=== PATIENT | male | born 1945 | race Caucasian/White ===

== ENCOUNTER 2017-09-12 13:03 | Inpatient (IN) | payer MEDICARE, OTHER ==
--- NOTE | 2017-09-12 14:01 | RAD ---
INDICATION: Short of breath COMPARISON: June 12, 2014 TECHNIQUE: An AP portable view obtained at 1345 hours is submitted. FINDINGS: Bones/Soft Tissues: There are no acute bony findings. Cardiomediastinal: The cardiac silhouette is enlarged. The central pulmonary vessels are prominent.. Lungs: There is airspace disease in the left lung base. There is infiltrate and/or atelectasis. Pleura: There are no significant effusions. Other: None IMPRESSION: SUSPECT MILD INTERSTITIAL CONGESTION WITH ENLARGED CHRONIC SILHOUETTE AND PULMONARY INTERSTITIAL EDEMA. LEFT BASILAR INFILTRATE AND/OR ATELECTASIS. SUGGEST FOLLOW-UP.
[2017-09-12 14:27] LABS: ABS Basophils 0.1 10^3/ul (0-0.2); ABS Eosinophils 0 10^3/ul (0-0.6); ABS Lymphocytes 0.3 10^3/ul (1.0-4.8); ABS Monocytes 1.3 10^3/ul (0-0.8); ABS Neutrophils 8.1 10^3/ul (1.5-7.7); ABS Nucleated RBC 0.1 10^3/ul; Eosinophil % 0.1 % (0-6); Hematocrit 41 % (42-52); Hemoglobin 13.4 g/dl (14.0-18.0); Lymphocyte % 3.2 % (25-47); Mean Corpuscular HGB Conc 33 g/dl (31-36); Mean Corpuscular Hemoglobin 32 pg (27-31); Mean Corpuscular Volume 99 fL (80-94); Mean Platelet Volume 9.1 um3 (7.4-10.4); Platelet Count 107 10^3/ul (150-450); Red Blood Count 4.15 10^6/ul (4.00-5.40); Red Cell Distribution Width 18 % (10.5-15); White Blood Count 9.8 10^3/ul (3.5-10.8)
[2017-09-12] MEDS ORDERED: Albuterol 2.5 MG/3 ML NEB.SOL* (0.083%) INH PRN (16:18)
[2017-09-12] MEDS ORDERED: NS 0.9% 1000 ML* 1,000 ML IV SCH (16:30)
[2017-09-12] MEDS ORDERED: Acetaminophen TAB* 325 MG PO PRN (16:31)
[2017-09-12] MEDS ORDERED: Thiamine IV 100 MG, Folic Acid IV* 1 MG, Multiple Vitamin IV ADULT* 10 ML in D5NS 0.9% ... IV ONE (16:42)
[2017-09-12 16:51] LABS: INR 1.14 (0.77-1.02)
[2017-09-12] MEDS ORDERED: LORazepam TAB(*) 1 MG PO SCH (17:00)
[2017-09-12] MEDS: cefTRIAXone VIAL(*) 1,000 MG in NS 0.9% 50 ML* 50 ML IVPB SCH (17:41)
[2017-09-12] MEDS: Azithromycin IV(*) 500 MG in NS 0.9% 250 ML* 250 ML IVPB SCH (18:05)
[2017-09-12] MEDS: Albuterol/Ipratropium NEB.SOL* Albuterol 2.5 MG/Ipratropium 0.5 MG 3 ML INH SCH ×2 (18:07→20:54)
[2017-09-12] MEDS: metroNIDAZOLE IV 500 MG/100ML* 500 MG/100 ML BAG IVPB SCH (19:56)
[2017-09-12] MEDS: KCL 20 MEQ/100 ML IVPREMIX* 20 MEQ/100 ML BAG IV SCH ×2 (20:03→22:17)
[2017-09-12] MEDS: Mometasone/Formoter 200/5 MDI INH SCH (20:09)
[2017-09-12] MEDS: Aspirin 81 mg CHEW TAB* 81 MG TAB.CHEW PO SCH (20:09)
--- NOTE | 2017-09-12 22:00 | HP ---
CC: Dr. Pablo; Dr. Diaz* HISTORY AND PHYSICAL: DATE OF ADMISSION: 09/12/17 PRIMARY CARE PROVIDER: Dr. Pablo. ATTENDING PHYSICIAN WHILE IN THE HOSPITAL: Josue Berry MD* (report dictated by Destin Black NP) CONSULTING PLASMA PROCESSING TECHNICIAN: Dr. Diaz. CHIEF COMPLAINT: 1. "I don't feel well." 2. Hypoxia. HISTORY OF PRESENT ILLNESS: Mr. Basurto is a 72-year-old male patient. He has really been lost to follow up over the last 2 years. He was last seen in our facility 3 years ago in 2014. He presents today. He will say that he has a significant history of cirrhosis. He has had hepatic encephalopathy in the past. He has pulmonary hypertension, neuropathy. He has a history of ascites, atrial tachycardia, CAD, DOT, question if he is compliant or not, hypertension, again cirrhosis, CHF, GERD, depression, and anxiety. He really is not able to give good history as he is intermittently confused during my exam, but he keeps saying to me that he has not been feeling well and he has been coughing. He states he has been feeling short of breath. He is not really sure how long this has been going on for. He states he has had chills at night, but no known fevers and denies any abdominal pain. Denies any chest pain at this point. He denies having any recent vomiting or diarrhea. There was concern though because when he presented here, he was noted to be hypoxic. He appeared to be in acute renal failure. Also, he was noted to have elevated troponin. It is also noted that his x-ray was significant for a left-sided pleural effusion and possible atelectasis and pneumonia. Because of these findings, we were asked to evaluate for admission. PAST MEDICAL HISTORY: Significant for: 1. COPD. 2. Pulmonary hypertension. 3. Neuropathy. 4. Ascites. 5. Obesity. 6. Atrial tachycardia. 7. CAD. 8. DOT. 9. Hypertension. 10. Cirrhosis. 11. Anemia. 12. Thrombocytopenia. 13. Depression. 14. Anxiety. 15. Tobacco abuse. 16. History of CHF. His last documented EF was 35% to 40%. 17. History of GERD. 18. Basal cell carcinoma. 19. Hepatic encephalopathy. PAST SURGICAL HISTORY: 1. He has had a rotator cuff repair. 2. Cardiac catheterization with nonobstructive coronary artery disease. 3. He has had basal cell skin cancer resection. 4. His last heart catheterization was done 4 years ago. Left main coronary artery was within normal limits. The LAD demonstrated mild valvular irregularities without critical obstruction. Circ demonstrated moderate valve irregularities, but without significant critical disease. Right coronary again showed minimal valve irregularities were seen at that point. HOME MEDICATIONS: According to what we were able to obtain includes: 1. Gabapentin 800 mg p.o. 4 times a day. 2. Toprol-XL 25 mg p.o. b.i.d. 3. Aspirin 650 mg every 6 hours as needed. 4. Demadex 40 mg p.o. b.i.d. 5. Librium 1 capsule t.i.d. as needed. ALLERGIES TO MEDICATIONS: Include no known drug allergies. FAMILY HISTORY: His mother had a history of pneumonia. Father had OR. SOCIAL HISTORY: He is a pack a day smoker. He does drink. He states he last had alcohol in May. Denies recreational drug abuse. Surrogate decision maker is his friend, [employer]. REVIEW OF SYSTEMS: Again, I question the validity given the underlying altered mental status, but the patient states to his knowledge, he has not had any known fevers, he has felt hot. He denies having any chest pain. No ear discharge. He does admit to having a cough. Denies any rhinorrhea. No sore throat. No thyroid enlargement. He denies having any chest pain. There was no orthopnea. He denies having any nocturnal dyspnea. Denies any abdominal pain. He does admit to having ascites. He denies any nausea, vomiting. No dysuria, no frequency. No seizure, no loss of consciousness. No pruritus, no skin ulcerations. Review of 14 systems completed, all others negative. PHYSICAL EXAMINATION GENERAL: At this time, Mr. Basurto is a 72-year-old male patient. He is chronically ill appearing. He is sitting in the ED stretcher. He does not appear to be in any acute respiratory distress. At this point, he certainly does appear to be drowsy. VITAL SIGNS: Blood pressure 107/72, pulse 95, respirations were 24, his O2 saturations now are 98% on 8 L OxyMask, temperature was 100.7. HEENT: Head: Atraumatic. Eyes: EOMs are intact. Sclerae anicteric, not pale. Throat: Oral mucosa appears to be dry. No oropharyngeal erythema. NECK: Supple. LUNGS: Diminished in the left base. He had crackles in the left base. Equal diaphragmatic expansion. HEART: Sounds S1, S2. It is irregular at times. No murmurs, rubs, or gallops. ABDOMEN: He has ascites. It was otherwise soft and nontender. Bowel sounds are present. EXTREMITIES: Pulses 2+ throughout. He does have peripheral edema. It is 2+ bilaterally. NEUROLOGIC: He is awake. He is oriented to himself, but he is confused to time and place. His speech is clear. His tongue is midline. Boat Builder And Repairer were equal. He had no gross focal deficits. DIAGNOSTIC STUDIES/LAB DATA: WBC 9.8, RBC of 4.15, hemoglobin 13.4, hematocrit 41, platelet count of 107. Blood gas, pH is 733, pCO2 is 68, pO2 is 62, bicarb 30. Sodium is 139, potassium 3.3, chloride was 94, BUN 63, creatinine 2.32, last creatinine was 1.2, glucose 127. Lactic 1.3. Calcium 8.8. Total bili 1.4, AST 103, ALT 147, which is up. Troponin 0.16. BNP 1063. Albumin of 3.4. Toxicology was negative. Chest x-ray when I reviewed today certainly does have left-sided pleural effusion with mild interstitial edema, it appears there may be a left infiltrate versus atelectasis. EKG today shows a sinus tachycardia, rate of 96 with a left anterior fascicular block and no ST elevations, no T wave inversions noted, he does have PAC, heart rate is irregular. Review to the previous EKG, it is similar with the exception of the irregularity that is new now. Last echo, EF 30% to 35%. Old medical records were reviewed. ASSESSMENT AND PLAN: Mr. Basurto is a complex 72-year-old male patient coming in to the emergency department today with complaints of generally not feeling well and hypoxia. On evaluation today, it was noted that he appeared to have pneumonia with signs of sepsis. We were asked to evaluate for admission. He will be admitted under inpatient status for: 1. Pneumonia. I suspect this is why he is feeling malaise and that is why he was probably hypoxic. Chest x-ray is significant for effusion on one side. It may need to be tapped. He does have possible infiltrate there. I do note that when he is presenting today, he is delirious, which could be from pneumonia. He may have some hepatic encephalopathy causing this. He is also in acute renal failure. He has mild hepatic failure as well. In addition to this, he has elevated troponin. So, he does have signs of end organ damage and again, he is delirious. He had a low- grade fever here. Rule out on a procalcitonin. I will get a sputum culture, Legionella antigen. He got a liter of fluid here in the ED. Blood pressure is holding. I will get him on antibiotics, panculture him and I am going to have Dr. Diaz evaluate the patient as well. 2. Chronic obstructive pulmonary disease. Continue his meds as prescribed. I have ordered nebs and Dulera. He currently does not appear to be taking medications for this. Again, we will need to get an accurate list. I will put him on Dulera, pulmonary toileting, p.r.n. albuterol and DuoNebs. 3. Pulmonary type hypertension. We will reevaluate with echo. 4. Elevated troponins, probably demand ischemia secondary to possible pneumonia. I am going to put him on aspirin. He is not having any chest pain. EKG is not showing signs of ischemia. So, I do not think he needs heparin drip at this point. I will put him on aspirin. Continue the beta-virgilio and we will monitor. Get an echo and cycle the troponins. 5. Ascites. Again, at this point, I am covering him with Rocephin for possible spontaneous bacterial peritonitis. Dr. Diaz will be evaluating. We may need to consider doing a tap to send off for sampling. We can consider doing this in the ICU. 6. History of atrial tachycardia. His heart rate intermittently is going irregular. He may have new onset atrial fibrillation; but at this point, it could be in the setting of this acute illness. I am going to try for rate control with his beta-virgilio with hold parameters. Holding on anticoagulation at this point in case of procedures. 7. Coronary artery disease. Again, trop is elevated. We will get an echo to see if there have been any changes. He is not having any chest pain. I think the acute illness is driving that troponin. He will be placed on beta-virgilio and aspirin. 8. Obstructive sleep apnea. It is unclear if he is on CPAP or not. We will get notes from his primary. 9. Hypertension. Again, I am just going to get him back on the beta-virgilio with hold parameters. 10. Cirrhosis. At some point, we will need to get him back on spironolactone, perhaps rifaximin. I am going to get an ammonia level and we will treat this with lactulose if needed. 11. Anemia. His H and H is stable. 12. Elevated LFTs, probably secondary to this acute illness. We will monitor these. I will repeat them in the morning. He does have known cirrhosis. I am getting an INR. 13. Thrombocytopenia. Platelets are stable. 14. Depression, anxiety. Continue supportive care. 15. History of tobacco use. He declined nicotine. 16. History of congestive heart failure. I do note that the BNP is over 1000, but the patient does have acute renal failure, which certainly may elevate this number factitiously. Again, he does have a fever down here. My concern for the respiratory status is that he most likely has pneumonia and he is septic. I will monitor this and we will continue to follow. 17. Acute renal failure. He may have a component of acute tubular necrosis. My plan would be to get urine FENa. I will bladder scan him as well to make sure he is not retaining. If he is, we will certainly place a catheter and we will continue to follow. 18. Gastroesophageal reflux disease. Continue meds as prescribed. 19. DVT prophylaxis. Again, high risk. He has been placed on heparin subcu. 20. Code status. Full code. TIME SPENT: Time spent on the admission, which was critical care time, was 70 minutes, greater than half the time was spent [id number] with the patient obtaining my history and physical; other half time was spent going over the plan of care with the patient and implementing plan of care. I did discuss the plan of care with my attending, Dr. Berry. I also discussed the case with Dr. Diaz; she is in agreement. DESTIN BLACK, DEMETRIO [id number]/[facility] #: [id number] EDA
[2017-09-12] MEDS: LORazepam INJ* 2 MG/ML 1 ML VIAL IM SCH (22:09)
[2017-09-12] MEDS: Heparin VIAL(*) 5000 UNITS/ML VIAL (FIVE THOUSAND) SUBCUT SCH (22:11)
[2017-09-12] MEDS: Metoprolol Tartrate TAB* 25 MG PO SCH (22:11)
[2017-09-13 01:00] LABS: Urine Appearance Cloudy; Urine Blood 2+ (Negative); Urine Color Yellow; Urine Ketones Negative (Negative); Urine Protein Negative (Negative); Urine Red Blood Cell Trace(0-2/hpf) (Absent); Urine Specific Gravity 1.012 (1.010-1.030); Urine Urobilinogen Positive (Negative); Urine White Blood Cell 2+(11-20/hpf) (Absent)
[2017-09-13] MEDS ORDERED: NS 0.9% 250 ML* 250 ML IV ONE (01:09)
[2017-09-13] MEDS ORDERED: Metoprolol Tartrate IV* 1 MG/ML 5 ML VIAL IV PRN ×2 (01:10→13:00)
--- NOTE | 2017-09-13 01:13 | PN ---
Hospitalist Progress Note Date of Service: 09/13/17 Text-paged by RN regarding tachycardias in the 130s. Reviewed pt's chart and currently being treated for PNA and UTI. Although LA is normal, tachycardia maybe a symptom of early sepsis. Will bolus with 250cc NS x1 and ordered Metoprolol 2.5 mg IV x1 PRN after bolus.
--- NOTE | 2017-09-13 02:22 | CONS ---
CRITICAL CARE CONSULTATION REPORT: DATE OF CONSULT: 09/12/17 CONSULTATION REQUESTED BY: Destin Black NP REASON FOR CONSULTATION: Altered mental status, hypoxemic and hypercapnic respiratory failure. HISTORY OF PRESENT ILLNESS: The patient is a 72-year-old male with multiple comorbidities, not able to provide good history as he is currently disoriented. History obtained from ED records and available medical records and the admitting physician discussions. The patient has a history of coronary artery disease, paroxysmal atrial fibrillation, CHF, hypertension, COPD, cirrhosis with chronic ascites, anemia, thrombocytopenia, neuropathy, pulmonary hypertension, DOT, anxiety and depression, and GERD. He presented to emergency room today for evaluation of shortness of breath. The patient is not able to provide much history. The patient reports that his shortness of breath has been worsening recently. The patient also reports chronic cough. The patient reports that he has not seen his primary care physician for a few years. He has been on supplemental oxygen at home for COPD, which he has not been compliant with. The patient was seen by provider recently, ascitic fluid drainage was recommended; however, he did not want to undergo it. The patient was found to have O2 sats 88% on 4 liters nasal cannula, did not appear in any kind of distress, O2 sats improved to 90% on 6 liters. Breath sounds showed inspiratory crackles and diminished breath sounds. Further evaluation in the emergency room revealed evidence of acute-on chronic hypercapnic and hypoxemic respiratory failure. The patient did not have white count, however, had left shift. He has mild anemia. Potassium was low, which was repleted. Lactic acid was within normal limits. He also was noted to have acute renal failure with elevated BUN and creatinine. His troponin was mildly elevated at 0.16 on admission, was trending down to 0.14. His procalcitonin was within normal limits. His BNP was significantly elevated at 1063. UA was pending. He apparently has history of EtOH abuse, alcohol level was within normal limits. The patient was admitted to ICU for close monitoring given altered mental status. The patient was seen and examined at the bedside. The patient was not able to provide much history, appeared disoriented. He is able to protect his airway well. He is satting in the low 90s on 10 liters. He is not using accessory muscles of respiration. His abdomen appears to be protruding and distended and has spider nevi. He has been intermittently tachycardic into one- teens. His blood pressure systolic at the time of my evaluation has been at 110. The patient has received IV fluids in the emergency room. He was given potassium supplements. He was initiated on broad-spectrum antibiotics. He was also given neb treatments. PAST MEDICAL HISTORY: 1. Coronary artery disease. 2. Paroxysmal atrial fibrillation, not on anticoagulation. 3. CHF. 4. Hypertension. 5. COPD. 6. Cirrhosis with ascites. 7. Anemia. 8. Thrombocytopenia. 9. Neuropathy. 10. Pulmonary hypertension. 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 12. Depression and anxiety. 13. GERD. MEDICATIONS AT HOME: Included: 1. Chlordiazepoxide. 2. Torsemide. 3. Metoprolol. 4. Gabapentin. 5. Aspirin. ALLERGIES: No known drug allergies. FAMILY HISTORY: Unable to obtain. Noncontributory. SOCIAL HISTORY: Current smoker, 1 pack per day for greater than 55 years. Denies recreational drug abuse. History of ethyl alcohol abuse. REVIEW OF SYSTEMS: The patient is unable to provide good history, denies nausea , vomiting, diarrhea. Last bowel movement few days ago as per the patient. Denies abdominal pain. The patient denies urinary complaints. PHYSICAL EXAM: The patient is in bed, in no apparent distress. He is unkempt. Vital Signs: Temperature 98, pulse 108 beats per minute, respiratory rate 22 to 23, blood pressure 102/58. HEENT: Pupils equal and reactive to light, mucous membranes moist. Lungs: Diminished air entry bilaterally. Rhonchi present on auscultation. Cardiovascular: S1, S2 present, tachycardic, irregular. Abdomen: Distended, ascites present, nontender. Extremities: Normal range of motion. Skin: Spider nevi present on the abdomen. Neurologic: Disoriented, alert, awake. No obvious focal neuro deficits. DIAGNOSTIC STUDIES/LAB DATA: WBC count 9.8, hemoglobin 13.4, hematocrit 41, platelet count 107. INR 1.14, PTT 21.9. Blood gas analysis showed pH of 7.33, pCO2 68, pO2 62, bicarb 30, and O2 sat of 90%. Sodium 139, potassium 3.3, chloride 94, bicarb 34, BUN 63, creatinine 2.32. T-bili 1.40, AST 103, ALT 147. Ammonia elevated at 79. Troponins trending down from 0.16 to 0.14. BNP 1063. Procalcitonin within normal limits. Chest x-ray on admission was personally reviewed by me - no evidence of cardiomegaly, airspace opacity in the left base. EKG, sinus tachycardia with PVCs. No acute ST-T wave changes. IMPRESSION AND RECOMMENDATIONS: 72-year-old male with multiple comorbidities, current smoker with significant smoking history, admitted with shortness of breath, found to have significant ascites, hypotensive, with acute renal failure. 1. Hypotension, likely secondary to sepsis, source likely pneumonia, abdominal source also likely, will need to check urinalysis. 2. Hyperammonemia. 3. Altered mental status secondary to sepsis, metabolic encephalopathy. 4. Hypoxemic and acute-on chronic hypercapnic respiratory failure, unstable, currently on O2 supplementation. 5. Microcytic anemia. 6. Thrombocytopenia secondary to ascites. 7. Acute renal failure, dehydration versus hepatorenal syndrome. 8. Elevated troponins, likely secondary to renal failure and stress ischemia. 9. Ascites. 10. Tachycardia The patient will be monitored closely in the ICU setting. The patient is receiving IV fluids with improvement in blood pressure since admission. He is not needing pressors at this time. His lactic acid is within normal limits. His sepsis is suspected secondary to pneumonia and possibly SBP. He is on broad-spectrum antibiotics, also with anaerobic coverage. Acute renal failure, dehydration versus prerenal from hepatorenal syndrome. Use IV fluids as needed. No need for blood transfusion. Elevated LFTs from alcoholic cirrhosis. Started on lactulose given the hyperammonemia. The patient is stable and in no need of pressors or intubation at this time. Will need to monitor him closely in the ICU setting. The patient would like to be a full code. Thank you for allowing me to participate in the care of your patient. Will monitor the patient closely in the ICU. [id number]/[facility] #: [id number] EDA
[2017-09-13] MEDS ORDERED: NS 0.9% 500 ML* 500 ML IV ONE (03:41)
[2017-09-13] MEDS ORDERED: hydrALAZINE IV* 20 MG/ML VIAL IV SLOW PU PRN (03:42)
[2017-09-13] MEDS ORDERED: Diltiazem IV* 5 MG/ML 5 ML VIAL (for loading dose/IV Push) (25 MG) IV SLOW PU ONE (04:13)
[2017-09-13] MEDS: metroNIDAZOLE IV 500 MG/100ML* 500 MG/100 ML BAG IVPB SCH ×3 (04:16→20:10)
[2017-09-13] MEDS: LORazepam INJ* 2 MG/ML 1 ML VIAL IM SCH ×3 (04:35→21:26)
[2017-09-13] MEDS ORDERED: Diltiazem IV* 5 MG/ML 5 ML VIAL (for loading dose/IV Push) (25 MG) IV PUSH ONE (05:03)
[2017-09-13 05:06] LABS: Hematocrit 39 % (42-52); Hemoglobin 12.8 g/dl (14.0-18.0); Mean Corpuscular HGB Conc 32 g/dl (31-36); Mean Corpuscular Hemoglobin 32 pg (27-31); Mean Corpuscular Volume 100 fL (80-94); Red Blood Count 3.95 10^6/ul (4.00-5.40); Red Cell Distribution Width 19 % (10.5-15); White Blood Count 8.4 10^3/ul (3.5-10.8)
[2017-09-13 05:16] LABS: EGFR Non-African American 41.7 (>60)
[2017-09-13 05:22] LABS: ABS Basophils 0.1 10^3/ul (0-0.2); ABS Eosinophils 0 10^3/ul (0-0.6); ABS Lymphocytes 0.3 10^3/ul (1.0-4.8); ABS Neutrophils 6.9 10^3/ul (1.5-7.7); ABS Nucleated RBC 0 10^3/ul
[2017-09-13 05:26] LABS: ABS Basophils 0 10^3/ul (0-0.2); ABS Neutrophils 7.2 10^3/ul (1.5-7.7); Mean Platelet Volume 8.5 um3 (7.4-10.4); Monocytes % 5 % (0-7); Platelet Count 85 10^3/ul (150-450)
[2017-09-13] MEDS: Heparin VIAL(*) 5000 UNITS/ML VIAL (FIVE THOUSAND) SUBCUT SCH (05:40)
[2017-09-13] MEDS ORDERED: Diltiazem IV VIAL* 125 MG in NS 0.9% 100 ML* 100 ML IV SCH (06:00)
[2017-09-13] MEDS: KCL 20 MEQ/100 ML IVPREMIX* 20 MEQ/100 ML BAG IV SCH ×2 (08:44→13:17)
[2017-09-13] MEDS: methylPREDNISolone SOD 40 MG* 1 ML VIAL IVPB SCH ×2 (08:44→21:51)
[2017-09-13] MEDS ORDERED: Heparin 2 UNITS/ML IVPREMIX* 1 ML in NS 0.9% 50 ML* 1 ML IV SCH (09:00)
[2017-09-13] MEDS: Albuterol 2.5 MG/3 ML NEB.SOL* (0.083%) INH SCH ×8 (09:02→23:24)
[2017-09-13] MEDS: Mometasone/Formoter 200/5 MDI INH SCH ×2 (09:04→21:07)
[2017-09-13] MEDS ORDERED: Norepinephrine 16MCG/ML IVPRE* 4,000 MCG/250 ML BAG IV ONE (09:06)
--- NOTE | 2017-09-13 09:11 | ECHO ---
Patient: KRYSTLE DEY [facility] Rec#: [id number] : 1945 Date: 09/13/2017 Age: 72y Height: 170 cm / 66.9 in Weight: 90.7 kg / 199.9 lbs Sex: M BSA: 2.02 Room#: [facility] Admit Date#: 09/12/2017 Type: Inpatient Referring: Destin Black NP Reading: Shivani Galvez MD Manager Company: Kenia Guajardo RDCS CC: Tawanda Pablo MD Transthoracic Echocardiogram Indication: Dyspnea, AMS. BP: 92/65 HR: 137 Rhythm: Tachycardia Findings History: COPD, cirrhosis, CHF, DOT, smoker, HTN, obesity, ascites. Technical Comments: The study quality is fair. Completed at 0830. Left Ventricle: The left ventricular chamber size is normal. Mild concentric left ventricular hypertrophy is observed. There is global hypokinesis of the left ventricle with minor regional variation. Unable to estimate left ventricular ejection fraction. There is septal flattening of the interventricular septum consistent with right ventricular volume or pressure overload. The assessment of diastolic function is non-diagnostic. Left Atrium: The left atrium is moderately dilated. Right Ventricle: Moderator Band present. The right ventricle is moderately dilated. The right ventricular global systolic function is moderately reduced. Right Atrium: The right atrium is moderately dilated. Aortic Valve: The aortic valve is trileaflet. There is no evidence of aortic valve thickening. There is no evidence of aortic regurgitation. There is no evidence of aortic stenosis. Mitral Valve: The mitral valve leaflets are mildly thickened. There is trace to mild mitral regurgitation. There is no evidence of mitral stenosis. Tricuspid Valve: The tricuspid valve leaflets are normal. There is moderate tricuspid regurgitation. The right ventricular systolic pressure is estimated at 51 mmHg. There is evidence of moderate pulmonary hypertension. There is no tricuspid stenosis. Pulmonic Valve: The pulmonic valve appears normal. There is a trace pulmonic regurgitation. There is no pulmonic stenosis. Pericardium: There is no significant pericardial effusion. A pericardial fat pad is visualized. Aorta: There is moderate dilatation of the ascending aorta. There is mild dilatation of the aortic root. Pulmonary Artery: The main pulmonary artery is not well visualized. Venous: The inferior vena cava is dilated. There is less than 50% respiratory change in the inferior vena cava dimension. Summary: There are no significant changes when compared to the previous study done on 01/25/2014 Conclusions TDS and limited. Resting widecomplex tachycardia. The endocardium is not well visualized. Difficult to estimate overall LV EF but probably moderately reduced. The left ventricular chamber size is normal. Mild concentric left ventricular hypertrophy is observed. There is global hypokinesis of the left ventricle with minor regional variation. Unable to estimate left ventricular ejection fraction. There is septal flattening of the interventricular septum consistent with right ventricular volume or pressure overload. The left atrium is moderately dilated. The right ventricle is moderately dilated. The right atrium is moderately dilated. There is trace to mild mitral regurgitation. There is moderate tricuspid regurgitation. The right ventricular systolic pressure is estimated at 51 mmHg. There is evidence of moderate pulmonary hypertension. There is a trace pulmonic regurgitation. Measurements Name Value Normal Range RVIDd (AP) 2D 4.6 cm (0.9 - 2.6) RVDdMajor (2D) 5.4 cm (2.2 - 4.4) RAd ISD 4CH 6.9 cm (3.4 - 4.9) RA (A4C)W 5.6 cm (2.9 - 4.6) IVSd (2D) 1.2 cm (0.6 - 1) LVPWd (2D) 1.3 cm (0.6 - 1) LVIDd (2D) 5 cm (3.6 - 5.4) LVIDs (2D) 4.6 cm - LV FS (2D) 8 % (25 - 45) Aortic Annulus 2.1 cm (1.4 - 2.6) Ao root diameter (2D) 3.9 cm (2.1 - 3.5) Ascending Ao 4.1 cm (2.1 - 3.4) Aortic arch 3.2 cm (1.8 - 3.4) LA dimension (AP) 2D 5 cm (2.3 - 3.8) LAd ISD 4CH 7.3 cm (2.9 - 5.3) LA ISD 4CH W 5.7 cm (2.5 - 4.5) Name Value Normal Range LA ESV BP (A/L) index 46 ml/m2 - Name Value Normal Range MV E-wave Vmax 0.8 m/sec - MV deceleration time 134 msec - MV A-wave Vmax 1.2 m/sec - MV E:A ratio 0.7 ratio - LV septal e' Vmax 0.13 m/sec - LV lateral e' Vmax 0.12 m/sec - LV E:e' septal ratio 6.15 ratio - LV E:e' lateral ratio 6.67 ratio - Name Value Normal Range AV Vmax 1.5 m/sec - AV VTI 19.2 cm - AV peak gradient 9 mmHg - AV mean gradient 5 mmHg - LVOT Vmax 0.91 m/sec - LVOT VTI 10.4 cm - LVOT peak gradient 3 mmHg - LVOT mean gradient 2 mmHg - NICOLE Vmax 0.8 m/sec - Name Value Normal Range TR Vmax 3 m/sec - TR peak gradient 36 mmHg - RAP 15 mmHg - RVSP 51 mmHg - IVC diameter 2.7 cm - Name Value Normal Range PV Vmax 1.1 m/sec - PV peak gradient 5 mmHg -
[2017-09-13] MEDS ORDERED: Metoprolol Tartrate IV* 1 MG/ML 5 ML VIAL ONE (09:37)
[2017-09-13] MEDS: Aspirin 81 mg CHEW TAB* 81 MG TAB.CHEW PO SCH (10:18)
[2017-09-13] MEDS: Multivitamins/Minerals TAB PO SCH (10:18)
[2017-09-13] MEDS: Folic Acid TAB* 1 MG PO SCH (10:18)
[2017-09-13] MEDS: Metoprolol Tartrate TAB* 25 MG PO SCH ×2 (10:18→20:52)
[2017-09-13] MEDS: Thiamine TAB* 100 MG TAB PO SCH (10:19)
[2017-09-13] MEDS: Diltiazem IV VIAL* 125 MG in NS 0.9% 100 ML* 100 ML IV SCH (12:06)
[2017-09-13 13:43] LABS: ABS Basophils 0 10^3/ul (0-0.2); ABS Eosinophils 0 10^3/ul (0-0.6); ABS Lymphocytes 0.1 10^3/ul (1.0-4.8); ABS Monocytes 0.4 10^3/ul (0-0.8); ABS Neutrophils 6.5 10^3/ul (1.5-7.7); ABS Nucleated RBC 0 10^3/ul; Eosinophil % 0 % (0-6); Hematocrit 40 % (42-52); Hemoglobin 12.8 g/dl (14.0-18.0); Lymphocyte % 1.4 % (25-47); Mean Corpuscular HGB Conc 33 g/dl (31-36); Mean Corpuscular Hemoglobin 33 pg (27-31); Mean Corpuscular Volume 100 fL (80-94); Mean Platelet Volume 9.2 um3 (7.4-10.4); Nucleated Red Blood Cells % 0.4; Platelet Count 77 10^3/ul (150-450); Red Blood Count 3.95 10^6/ul (4.00-5.40); Red Cell Distribution Width 18 % (10.5-15)
[2017-09-13 13:58] LABS: EGFR Non-African American 48.5 (>60)
[2017-09-13] MEDS ORDERED: Heparin VIAL(*) 5000 UNITS/ML VIAL (FIVE THOUSAND) SUBCUT SCH (14:00)
--- NOTE | 2017-09-13 14:10 | PN ---
Progress Note - Progress Note Date of Service: 09/13/17 - [facility] progress note Note: Unsuccessful Rt radial A-line Date: 09/13/17 Time: 10:00 am Indication: Hemodynamic monitoring A time-out was completed verifying correct patient, procedure, site, positioning , and special equipment if applicable. Allens test was performed to ensure adequate perfusion. The patients right wrist was prepped and draped in sterile fashion. 1% Lidocaine was used to anesthetize the area. A 20G Arrow arterial line was introduced into the radial artery. The catheter couldnot be threaded over the guide wire and was removed. 2 other attempts were also unsuccessful No hematoma was noted. Pulses were palpated and were brisk. Unsuccessful Lt radial A-line Date: 09/13/17 Time: 12:[address] Boland Indication: Hemodynamic monitoring A time-out was completed verifying correct patient, procedure, site, positioning , and special equipment if applicable. Allens test was performed to ensure adequate perfusion. The patients right wrist was prepped and draped in sterile fashion. 1% Lidocaine was used to anesthetize the area. A 20G Arrow arterial line was attempted and was unsuccessful. Procedure was aborted after 2 unsuccessful attempts. Pulses were palpated and were brisk.
--- NOTE | 2017-09-13 14:20 | PN ---
Date of Service: 09/13/17 - [facility] progreess note Critical Care Services: Pt seen and examined at bedside. Overnight events noted Had A.fib with RVR last night, was started on Cardizem drip Had hypotension, was given 250cc bolus last night Had another episode of A.fib after staying in SVT for few hrs Had BM last night, ammonia still elevated Mental status worsened this am, resp acidosis , started on BiPAP Being able to titrate off Cardizem drip Vital Signs: Temp Pulse Resp BP SpO2 FiO2 99.3 F 85 21 93/73 97 80 09/13/17 12:45 09/13/17 13:48 09/13/17 13:48 09/13/17 12:45 09/13/17 13:48 09/13 13:48 Physical Exam: Gen: Pt is drowsy, responds to painful stimuli, able to protect airway HEENT:PERRLA, No JVD Lungs:Diminished air entry at bases, rhonchi + Cardiac: S1, S2+, tachycardic Abdomen: Obese, distended, ascites+ Extremities: No edema Neuro: Drowsy, responds to painful stimuli Fluid Balance (Past 24 Hours): I= 1964 O=500 Net 1464 Intake & Output 09/11/17 09/12/17 09/13/17 09/14/17 06:59 06:59 06:59 06:59 Intake Total 1964 Output Total 500 525 Balance 1464 -525 Weight 186 lb 1.122 oz 216 lb 0.848 oz Intake: IV Fluids 892 Banana Bag 525 NS to Maintain IV Patency 367 IVPB 772 ABX - AZITHROMYCIN 250 ABX - CEFTRIAXONE 106 ABX - FLAGYL 200 KCL 216 Oral 300 Output: Urine 0 [place] 410 525 Residual 90 16 Fr Temperature Probe 90 Other: Estimated Void Large Date of Last Bowel 09/13/2017 Movement # Bowel Movements 1 Estimated Stool Amount Large # Voids 1 Labs: Laboratory Results - last 24 hr 09/12/17 09/12/17 09/12/17 00:34 00:34 14:00 WBC 9.8 RBC 4.15 Hgb 13.4 L Hct 41 L MCV 99 H MCH 32 H MCHC 33 RDW 18 H Plt Count 107 L MPV 9.1 Neut % (Auto) 82.7 Lymph % (Auto) 3.2 L [place] % (Auto) 13.2 H Eos % (Auto) 0.1 Baso % (Auto) 0.8 Absolute Neuts (auto) 8.1 H Absolute Lymphs (auto) 0.3 L Absolute Monos (auto) 1.3 H Absolute Eos (auto) 0 Absolute Basos (auto) 0.1 Absolute Nucleated RBC 0.1 Immature Gran % Neutrophils % Band Neutrophils % Lymphocytes % Reactive Lymphs % Monocytes % Eosinophils % Basophils % Nucleated RBC % 1.0 Abs Neuts (Manual) Abs Lymphs (Manual) Abs Monocytes (Manual) Absolute Eos (Manual) Abs Basophils (Manual) Nucleated RBCs/100 WBC Normal RBC Morphology Polychromasia Macrocytosis INR (Anticoag Therapy) APTT Patient Temperature ABG pH ABG pH (Temp Correct) ABG pCO2 ABG pCO2 (Temp Corrct ABG pO2 ABG pO2 (Temp Correct ABG HCO3 ABG O2 Saturation ABG Base Excess Respiration Rate O2 Delivery Device Ventilator Type Vent Mode FiO2 Inspiratory Time PEEP Pressure Support Pressure Control EPAP IPAP BiPAP Sodium Potassium Chloride Carbon Dioxide Anion Gap BUN Creatinine Est GFR ( Amer) Est GFR (Non-Af Amer) BUN/Creatinine Ratio Glucose Lactic Acid Calcium Total Bilirubin Direct Bilirubin Indirect Bilirubin AST ALT Alkaline Phosphatase Ammonia Troponin I B-Natriuretic Peptide Total Protein Albumin Globulin Albumin/Globulin Ratio Procalcitonin Urine Color Yellow Urine Appearance Cloudy Urine pH 5.0 Ur Specific [place] 1.012 Urine Protein Negative Urine Ketones Negative Urine Blood 2+ A Urine Nitrate Negative Urine Bilirubin Negative Urine Urobilinogen Positive A Ur Leukocyte Esterase 2+ A Urine WBC (Auto) 2+(11-20/hpf) A Urine RBC (Auto) Trace(0-2/hpf) Ur Squamous Epith Cells Present A Urine Bacteria Absent Hyaline Casts Present A Ur Random Creatinine 105.16 Ur Random Sodium < 18 Urine Glucose Negative Urine Opiates Screen Ur Barbiturates Screen Ur Phencyclidine Scrn Ur Amphetamines Screen U Benzodiazepines Scrn Urine Cocaine Screen U Cannabinoids Screen Serum Alcohol 09/12/17 09/12/17 09/12/17 14:00 14:00 14:00 WBC RBC Hgb Hct MCV MCH MCHC RDW Plt Count MPV Neut % (Auto) Lymph % (Auto) [place] % (Auto) Eos % (Auto) Baso % (Auto) Absolute Neuts (auto) Absolute Lymphs (auto) Absolute Monos (auto) Absolute Eos (auto) Absolute Basos (auto) Absolute Nucleated RBC Immature Gran % Neutrophils % Band Neutrophils % Lymphocytes % Reactive Lymphs % Monocytes % Eosinophils % Basophils % Nucleated RBC % Abs Neuts (Manual) Abs Lymphs (Manual) Abs Monocytes (Manual) Absolute Eos (Manual) Abs Basophils (Manual) Nucleated RBCs/100 WBC Normal RBC Morphology Polychromasia Macrocytosis INR (Anticoag Therapy) APTT Patient Temperature ABG pH ABG pH (Temp Correct) ABG pCO2 ABG pCO2 (Temp Corrct ABG pO2 ABG pO2 (Temp Correct ABG HCO3 ABG O2 Saturation ABG Base Excess Respiration Rate O2 Delivery Device Ventilator Type Vent Mode FiO2 Inspiratory Time PEEP Pressure Support Pressure Control EPAP IPAP BiPAP Sodium 139 Potassium 3.3 L Chloride 94 L Carbon Dioxide 34 H Anion Gap 11 BUN 63 H Creatinine 2.32 H Est GFR ( Amer) 33.8 Est GFR (Non-Af Amer) 28.0 BUN/Creatinine Ratio 27.2 H Glucose 127 H Lactic Acid 1.3 Calcium 8.8 Total Bilirubin 1.40 H Direct Bilirubin Indirect Bilirubin AST 103 H ALT 147 H Alkaline Phosphatase 85 Ammonia Troponin I 0.16 H* B-Natriuretic Peptide 1063 H Total Protein 6.6 Albumin 3.4 Globulin 3.2 Albumin/Globulin Ratio 1.1 Procalcitonin Urine Color Urine Appearance Urine pH Ur Specific [place] Urine Protein Urine Ketones Urine Blood Urine Nitrate Urine Bilirubin Urine Urobilinogen Ur Leukocyte Esterase Urine WBC (Auto) Urine RBC (Auto) Ur Squamous Epith Cells Urine Bacteria Hyaline Casts Ur Random Creatinine Ur Random Sodium Urine Glucose Urine Opiates Screen Ur Barbiturates Screen Ur Phencyclidine Scrn Ur Amphetamines Screen U Benzodiazepines Scrn Urine Cocaine Screen U Cannabinoids Screen Serum Alcohol < 10 09/12/17 09/12/17 09/12/17 14:00 15:45 16:14 WBC RBC Hgb Hct MCV MCH MCHC RDW Plt Count MPV Neut % (Auto) Lymph % (Auto) [place] % (Auto) Eos % (Auto) Baso % (Auto) Absolute Neuts (auto) Absolute Lymphs (auto) Absolute Monos (auto) Absolute Eos (auto) Absolute Basos (auto) Absolute Nucleated RBC Immature Gran % Neutrophils % Band Neutrophils % Lymphocytes % Reactive Lymphs % Monocytes % Eosinophils % Basophils % Nucleated RBC % Abs Neuts (Manual) Abs Lymphs (Manual) Abs Monocytes (Manual) Absolute Eos (Manual) Abs Basophils (Manual) Nucleated RBCs/100 WBC Normal RBC Morphology Polychromasia Macrocytosis INR (Anticoag Therapy) APTT Patient Temperature Not Reportable ABG pH 7.33 L ABG pH (Temp Correct) Not Reportable ABG pCO2 68 H ABG pCO2 (Temp Corrct Not Reportable ABG pO2 62 L ABG pO2 (Temp Correct Not Reportable ABG HCO3 30.5 ABG O2 Saturation 90.6 L ABG Base Excess 7.5 H Respiration Rate Not Reportable O2 Delivery Device nasal cannula 6 lpm Ventilator Type Not Reportable Vent Mode Not Reportable FiO2 Not Reportable Inspiratory Time Not Reportable PEEP Not Reportable Pressure Support Not Reportable Pressure Control Not Reportable EPAP Not Reportable IPAP Not Reportable BiPAP Not Reportable Sodium Potassium Chloride Carbon Dioxide Anion Gap BUN Creatinine Est GFR ( Amer) Est GFR (Non-Af Amer) BUN/Creatinine Ratio Glucose Lactic Acid Calcium Total Bilirubin Direct Bilirubin Indirect Bilirubin AST ALT Alkaline Phosphatase Ammonia 79 H Troponin I B-Natriuretic Peptide Total Protein Albumin Globulin Albumin/Globulin Ratio Procalcitonin 0.2 Urine Color Urine Appearance Urine pH Ur Specific [place] Urine Protein Urine Ketones Urine Blood Urine Nitrate Urine Bilirubin Urine Urobilinogen Ur Leukocyte Esterase Urine WBC (Auto) Urine RBC (Auto) Ur Squamous Epith Cells Urine Bacteria Hyaline Casts Ur Random Creatinine Ur Random Sodium Urine Glucose Urine Opiates Screen Ur Barbiturates Screen Ur Phencyclidine Scrn Ur Amphetamines Screen U Benzodiazepines Scrn Urine Cocaine Screen U Cannabinoids Screen Serum Alcohol 09/12/17 09/12/17 09/12/17 16:15 16:28 19:50 WBC RBC Hgb Hct MCV MCH MCHC RDW Plt Count MPV Neut % (Auto) Lymph % (Auto) [place] % (Auto) Eos % (Auto) Baso % (Auto) Absolute Neuts (auto) Absolute Lymphs (auto) Absolute Monos (auto) Absolute Eos (auto) Absolute Basos (auto) Absolute Nucleated RBC Immature Gran % Neutrophils % Band Neutrophils % Lymphocytes % Reactive Lymphs % Monocytes % Eosinophils % Basophils % Nucleated RBC % Abs Neuts (Manual) Abs Lymphs (Manual) Abs Monocytes (Manual) Absolute Eos (Manual) Abs Basophils (Manual) Nucleated RBCs/100 WBC Normal RBC Morphology Polychromasia Macrocytosis INR (Anticoag Therapy) 1.14 H APTT 21.9 L Patient Temperature ABG pH ABG pH (Temp Correct) ABG pCO2 ABG pCO2 (Temp Corrct ABG pO2 ABG pO2 (Temp Correct ABG HCO3 ABG O2 Saturation ABG Base Excess Respiration Rate O2 Delivery Device Ventilator Type Vent Mode FiO2 Inspiratory Time PEEP Pressure Support Pressure Control EPAP IPAP BiPAP Sodium Potassium Chloride Carbon Dioxide Anion Gap BUN Creatinine Est GFR ( Amer) Est GFR (Non-Af Amer) BUN/Creatinine Ratio Glucose Lactic Acid Calcium Total Bilirubin Direct Bilirubin Indirect Bilirubin AST ALT Alkaline Phosphatase Ammonia Troponin I 0.14 H* 0.13 H* B-Natriuretic Peptide Total Protein Albumin Globulin Albumin/Globulin Ratio Procalcitonin Urine Color Urine Appearance Urine pH Ur Specific [place] Urine Protein Urine Ketones Urine Blood Urine Nitrate Urine Bilirubin Urine Urobilinogen Ur Leukocyte Esterase Urine WBC (Auto) Urine RBC (Auto) Ur Squamous Epith Cells Urine Bacteria Hyaline Casts Ur Random Creatinine Ur Random Sodium Urine Glucose Urine Opiates Screen Ur Barbiturates Screen Ur Phencyclidine Scrn Ur Amphetamines Screen U Benzodiazepines Scrn Urine Cocaine Screen U Cannabinoids Screen Serum Alcohol 09/13/17 09/13/17 09/13/17 00:34 04:50 04:50 WBC RBC Hgb Hct MCV MCH MCHC RDW Plt Count MPV Neut % (Auto) Lymph % (Auto) [place] % (Auto) Eos % (Auto) Baso % (Auto) Absolute Neuts (auto) Absolute Lymphs (auto) Absolute Monos (auto) Absolute Eos (auto) Absolute Basos (auto) Absolute Nucleated RBC Immature Gran % Neutrophils % Band Neutrophils % Lymphocytes % Reactive Lymphs % Monocytes % Eosinophils % Basophils % Nucleated RBC % Abs Neuts (Manual) Abs Lymphs (Manual) Abs Monocytes (Manual) Absolute Eos (Manual) Abs Basophils (Manual) Nucleated RBCs/100 WBC Normal RBC Morphology Polychromasia Macrocytosis INR (Anticoag Therapy) APTT Patient Temperature ABG pH ABG pH (Temp Correct) ABG pCO2 ABG pCO2 (Temp Corrct ABG pO2 ABG pO2 (Temp Correct ABG HCO3 ABG O2 Saturation ABG Base Excess Respiration Rate O2 Delivery Device Ventilator Type Vent Mode FiO2 Inspiratory Time PEEP Pressure Support Pressure Control EPAP IPAP BiPAP Sodium 141 Potassium 3.4 L Chloride 98 L Carbon Dioxide 37 H Anion Gap 6 BUN 55 H Creatinine 1.64 H Est GFR ( Amer) 50.5 Est GFR (Non-Af Amer) 41.7 BUN/Creatinine Ratio 33.5 H Glucose 143 H Lactic Acid Calcium 8.2 L Total Bilirubin 1.00 Direct Bilirubin 0.50 H Indirect Bilirubin 0.5 AST 54 H ALT 111 H Alkaline Phosphatase 79 Ammonia 91 H Troponin I B-Natriuretic Peptide Total Protein 6.3 L Albumin 3.3 Globulin 3.0 Albumin/Globulin Ratio 1.1 Procalcitonin Urine Color Urine Appearance Urine pH Ur Specific [place] Urine Protein Urine Ketones Urine Blood Urine Nitrate Urine Bilirubin Urine Urobilinogen Ur Leukocyte Esterase Urine WBC (Auto) Urine RBC (Auto) Ur Squamous Epith Cells Urine Bacteria Hyaline Casts Ur Random Creatinine Ur Random Sodium Urine Glucose Urine Opiates Screen None detected Ur Barbiturates Screen None detected Ur Phencyclidine Scrn None detected Ur Amphetamines Screen None detected U Benzodiazepines Scrn Presumptive positive A Urine Cocaine Screen None detected U Cannabinoids Screen None detected Serum Alcohol 09/13/17 09/13/17 09/13/17 04:50 08:34 10:39 WBC 8.4 RBC 3.95 L Hgb 12.8 L Hct 39 L MCV 100 H MCH 32 H MCHC 32 RDW 19 H Plt Count 85 L MPV 8.5 Neut % (Auto) Not Reportable Lymph % (Auto) Not Reportable [place] % (Auto) Not Reportable Eos % (Auto) Not Reportable Baso % (Auto) Not Reportable Absolute Neuts (auto) 6.9 Absolute Lymphs (auto) 0.3 L Absolute Monos (auto) 1.0 H Absolute Eos (auto) 0 Absolute Basos (auto) 0.1 Absolute Nucleated RBC 0 Immature Gran % 7 Neutrophils % 86 H Band Neutrophils % 7 Lymphocytes % 1 L Reactive Lymphs % 1 Monocytes % 5 Eosinophils % 0 Basophils % 0 Nucleated RBC % Not Reportable Abs Neuts (Manual) 7.2 Abs Lymphs (Manual) 0.1 L Abs Monocytes (Manual) 0.4 Absolute Eos (Manual) 0 Abs Basophils (Manual) 0 Nucleated RBCs/100 WBC 2 H Normal RBC Morphology Not Reportable Polychromasia 2+ Macrocytosis 2+ INR (Anticoag Therapy) APTT Patient Temperature Not Reportable Not Reportable ABG pH 7.27 L 7.29 L ABG pH (Temp Correct) Not Reportable Not Reportable ABG pCO2 84 H* 76 H* ABG pCO2 (Temp Corrct Not Reportable Not Reportable ABG pO2 76 L 173 H ABG pO2 (Temp Correct Not Reportable Not Reportable ABG HCO3 31.3 H 30.4 ABG O2 Saturation 95.7 99.6 H ABG Base Excess 8.4 H 7.1 H Respiration Rate Not Reportable Not Reportable O2 Delivery Device nc bipap Ventilator Type Not Reportable Not Reportable Vent Mode Not Reportable Not Reportable FiO2 10 100 Inspiratory Time Not Reportable Not Reportable PEEP Not Reportable Not Reportable Pressure Support Not Reportable Not Reportable Pressure Control Not Reportable Not Reportable EPAP Not Reportable 8 IPAP Not Reportable 16 BiPAP Not Reportable Not Reportable Sodium Potassium Chloride Carbon Dioxide Anion Gap BUN Creatinine Est GFR ( Amer) Est GFR (Non-Af Amer) BUN/Creatinine Ratio Glucose Lactic Acid Calcium Total Bilirubin Direct Bilirubin Indirect Bilirubin AST ALT Alkaline Phosphatase Ammonia Troponin I B-Natriuretic Peptide Total Protein Albumin Globulin Albumin/Globulin Ratio Procalcitonin Urine Color Urine Appearance Urine pH Ur Specific [place] Urine Protein Urine Ketones Urine Blood Urine Nitrate Urine Bilirubin Urine Urobilinogen Ur Leukocyte Esterase Urine WBC (Auto) Urine RBC (Auto) Ur Squamous Epith Cells Urine Bacteria Hyaline Casts Ur Random Creatinine Ur Random Sodium Urine Glucose Urine Opiates Screen Ur Barbiturates Screen Ur Phencyclidine Scrn Ur Amphetamines Screen U Benzodiazepines Scrn Urine Cocaine Screen U Cannabinoids Screen Serum Alcohol 09/13/17 09/13/17 09/13/17 13:30 13:30 13:30 WBC 7.0 RBC 3.95 L Hgb 12.8 L Hct 40 L MCV 100 H MCH 33 H MCHC 33 RDW 18 H Plt Count 77 L MPV 9.2 Neut % (Auto) 92.8 H Lymph % (Auto) 1.4 L [place] % (Auto) 5.7 Eos % (Auto) 0 Baso % (Auto) 0.1 Absolute Neuts (auto) 6.5 Absolute Lymphs (auto) 0.1 L Absolute Monos (auto) 0.4 Absolute Eos (auto) 0 Absolute Basos (auto) 0 Absolute Nucleated RBC 0 Immature Gran % Neutrophils % Band Neutrophils % Lymphocytes % Reactive Lymphs % Monocytes % Eosinophils % Basophils % Nucleated RBC % 0.4 Abs Neuts (Manual) Abs Lymphs (Manual) Abs Monocytes (Manual) Absolute Eos (Manual) Abs Basophils (Manual) Nucleated RBCs/100 WBC Normal RBC Morphology Polychromasia Macrocytosis INR (Anticoag Therapy) APTT 25.9 L Patient Temperature ABG pH ABG pH (Temp Correct) ABG pCO2 ABG pCO2 (Temp Corrct ABG pO2 ABG pO2 (Temp Correct ABG HCO3 ABG O2 Saturation ABG Base Excess Respiration Rate O2 Delivery Device Ventilator Type Vent Mode FiO2 Inspiratory Time PEEP Pressure Support Pressure Control EPAP IPAP BiPAP Sodium Potassium Chloride Carbon Dioxide Anion Gap BUN 53 H Creatinine 1.44 H Est GFR ( Amer) 58.7 Est GFR (Non-Af Amer) 48.5 BUN/Creatinine Ratio Glucose Lactic Acid Calcium Total Bilirubin Direct Bilirubin Indirect Bilirubin AST ALT Alkaline Phosphatase Ammonia Troponin I B-Natriuretic Peptide Total Protein Albumin Globulin Albumin/Globulin Ratio Procalcitonin Urine Color Urine Appearance Urine pH Ur Specific [place] Urine Protein Urine Ketones Urine Blood Urine Nitrate Urine Bilirubin Urine Urobilinogen Ur Leukocyte Esterase Urine WBC (Auto) Urine RBC (Auto) Ur Squamous Epith Cells Urine Bacteria Hyaline Casts Ur Random Creatinine Ur Random Sodium Urine Glucose Urine Opiates Screen Ur Barbiturates Screen Ur Phencyclidine Scrn Ur Amphetamines Screen U Benzodiazepines Scrn Urine Cocaine Screen U Cannabinoids Screen Serum Alcohol Studies: ECHO: Technically limited due to tachycardia. Decreased LV function, moderate pulmonary hypertension CXR: Cardiomegaly, Lt base infiltrate Nutrition: NPO given AMS, resp distress Impression: 72 y o m with ETOH abuse, cirrhosis and ascites, CHF, paroxysmal A.fib, pulm HTN , current smoker with h/o COPD, not compliant with home O2 presented for worsening SOB found to have acute on chronic hypercapnic and hypoxic resp failure, hypotension sec to sepsis and AMS sec to metabolic encephalopathy 1. AMS sec to metabolic encephalopathy 2. Hyperammonemia sec to iver cirrhosis 3. Ascites, possible SBP 4. Hypotension likely sec to sepsis 5. Acute on chronic hypoxic and hypercapnic resp failure 6. A.fib with RVR/SVT 7. ARF, improving 8. Elevated troponin sec to RF and stress induced ischemia 9.Macrocytic anemia 10.Thrombocytopenia Plan: 1. Neuro: AMS sec to metabolic encephalopathy, elevated NH3 sec to liver cirrhosis and sepsis. Able to protect airway and tolerate BiPAP. Responds to painful stimuli and mental status slowly improving with BiPAP. Aspiration precautions 2. Resp: Acute on chronic hypoxic and hypercapnic resp failure on BiPAP. Will f/ u ABG in 2 hrs. Has significant smoking history and COPD. C/w nebs, solumedrol. Not needing intubation at this time. CXR concerning for LLL PNA, unable to get sputum cx , pt coughing intermittently, not bringing up any phleghm 3. CVS: Hypotension, intermittent episodes of A.fib and SVT, on Cardizem drip and Heparin drip. Able to titrate off Cardizem, BP improving. ECHO shows RV pressure overload and pulm HTN with decreased Lt heart function. Troponins elevated likely sec to demand ischemia and renal failure. Trending down, will not trend. 4. GI: NPO for now, h/o cirrhosis sec to ETOH, chronic ascites. Ammonia elevated , NGT tube placed as he was not able to take Lactulose today given change in mental status.Will c/w Lactulose through NGT. GI px with PPI. No GI bleed or known h/o Varices 5. ID: Sepsis sec to PNA, UTI and presumed SBP. On broad spectrum abx. Lactate within normal limits. Hypotension, avoiding fluid overload, will use Levophed as needed for hypotension. 6. Endo: Bl sugars slightly elevated, c/w finger stick check and Insulin SS 7. Haem: Thrombocytopenia sec to cirrhosis, will monitor for bleeding. On heparin drip for A.fib. Anemia sec to liver disease and ETOH abuse. No evidence of ETOH withdrawl, will d/c banana bag, c/w folate and Thiamine. 8. Supportive and preventive care as ordered 9. Psychosocial: Pt doesnot have family Pt wishes to be full code Critical Care Time: 45 min excluding procedures
--- NOTE | 2017-09-13 15:12 | RAD ---
HISTORY: confirm PICC placement COMPARISONS: September 12, 2017 VIEWS: 1: frontal portable view of the chest at 2:41 PM FINDINGS: LINES AND TUBES: A right-sided PICC line is noted with the tip overlying the superior vena cava.. A gastric tube is noted. The tip is below the [id number] of the current examination, but is below the diaphragm. CARDIOMEDIASTINAL SILHOUETTE: The cardiomediastinal silhouette is normal for portable technique. PLEURA: The costophrenic angles are sharp. No pleural abnormalities are noted. LUNG PARENCHYMA: There is confluent alveolar opacification of the left lower lung. ABDOMEN: The upper abdomen is clear. There is no subphrenic gas. BONES AND SOFT TISSUES: There is post surgical change to the left shoulder. IMPRESSION: 1. LINES AND TUBES ABOVE. 2. LEFT LOWER LUNG CONSOLIDATION.
[2017-09-13] MEDS: Norepinephrine VIAL* 4 MG in NS 0.9% 250 ML* 246 ML IVPB SCH (15:27)
[2017-09-13] MEDS: Lactulose 300 ML for PR* 10 GM/15 ML BTL PR SCH (15:28)
[2017-09-13] MEDS: Heparin DRIP 25,000 UNITS(*) 25,000 UNITS/500 ML BAG IV SCH (15:53)
[2017-09-13] MEDS ORDERED: Heparin VIAL(*) 5000 UNITS/ML VIAL (FIVE THOUSAND) IV ONE (16:15)
--- NOTE | 2017-09-13 17:43 | RAD ---
HISTORY: Oxygen dependence in an immobile patient TECHNIQUE: Multiple transverse and longitudinal ultrasound images were obtained of the veins of the bilateral lower extremities using grayscale, color Doppler, and spectral Doppler imaging with and without compression and with augmentation. 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 The common femoral vein, deep femoral vein, femoral vein and popliteal vein are compressible throughout their course, with normal flow on color Doppler imaging and normal response to augmentation on spectral Doppler imaging. SOFT TISSUES: Grossly normal. No large popliteal fossa cyst was identified. IMPRESSION: No sonographic evidence of deep vein thrombosis.
[2017-09-13] MEDS: cefTRIAXone VIAL(*) 1,000 MG in NS 0.9% 50 ML* 50 ML IVPB SCH (17:46)
[2017-09-13] MEDS: Azithromycin IV(*) 500 MG in NS 0.9% 250 ML* 250 ML IVPB SCH (18:23)
[2017-09-13 18:51] LABS: EGFR Non-African American 53.2 (>60)
[2017-09-13] MEDS: LORazepam INJ* 2 MG/ML 1 ML VIAL IV PUSH SCH (23:20)
[2017-09-14] MEDS: LORazepam INJ* 2 MG/ML 1 ML VIAL IV PUSH SCH ×5 (01:49→15:19)
[2017-09-14] MEDS: Norepinephrine VIAL* 4 MG in NS 0.9% 250 ML* 246 ML IVPB SCH ×2 (02:26→15:23)
--- NOTE | 2017-09-14 02:45 | PN ---
Hospitalist Progress Note Date of Service: 09/14/17 Discussed case with ICU staff given pt still very agitated despite receiving BZDs via WAM protocol. Precedex gtt ordered to titrate with RAAS goal =-1, where pt still able to protect airway
[2017-09-14] MEDS: Dexmedetomidine* 400 MCG in NS 0.9% 100 ML* 96 ML IVPB SCH ×4 (03:21→20:38)
[2017-09-14] MEDS: NS 0.9% 1000 ML* 1,000 ML IV SCH (03:40)
[2017-09-14] MEDS: metroNIDAZOLE IV 500 MG/100ML* 500 MG/100 ML BAG IVPB SCH ×3 (03:40→19:42)
[2017-09-14] MEDS: Albuterol 2.5 MG/3 ML NEB.SOL* (0.083%) INH SCH ×5 (03:41→20:29)
[2017-09-14 06:14] LABS: ABS Basophils 0 10^3/ul (0-0.2); ABS Eosinophils 0 10^3/ul (0-0.6); ABS Lymphocytes 0.1 10^3/ul (1.0-4.8); ABS Monocytes 0.4 10^3/ul (0-0.8); ABS Neutrophils 4.1 10^3/ul (1.5-7.7); ABS Nucleated RBC 0 10^3/ul; Eosinophil % 0 % (0-6); Hematocrit 36 % (42-52); Hemoglobin 11.5 g/dl (14.0-18.0); Lymphocyte % 2.3 % (25-47); Mean Corpuscular HGB Conc 32 g/dl (31-36); Mean Corpuscular Hemoglobin 32 pg (27-31); Mean Corpuscular Volume 100 fL (80-94); Mean Platelet Volume 8.9 um3 (7.4-10.4); Nucleated Red Blood Cells % 0.6; Platelet Count 67 10^3/ul (150-450); Red Blood Count 3.56 10^6/ul (4.00-5.40); Red Cell Distribution Width 18 % (10.5-15); White Blood Count 4.6 10^3/ul (3.5-10.8)
[2017-09-14 06:35] LABS: EGFR Non-African American 55.6 (>60)
[2017-09-14] MEDS: Heparin DRIP 25,000 UNITS(*) 25,000 UNITS/500 ML BAG IV SCH (07:43)
[2017-09-14] MEDS: Multivitamins/Minerals TAB PO SCH (08:41)
[2017-09-14] MEDS: Folic Acid TAB* 1 MG PO SCH (08:41)
[2017-09-14] MEDS: Thiamine TAB* 100 MG TAB PO SCH (08:41)
[2017-09-14] MEDS: Aspirin 81 mg CHEW TAB* 81 MG TAB.CHEW PO SCH (08:41)
[2017-09-14] MEDS: Metoprolol Tartrate TAB* 25 MG PO SCH ×2 (08:41→20:47)
[2017-09-14] MEDS: methylPREDNISolone SOD 40 MG* 1 ML VIAL IVPB SCH ×2 (08:41→22:06)
[2017-09-14] MEDS: Mometasone/Formoter 200/5 MDI INH SCH ×2 (09:30→20:32)
--- NOTE | 2017-09-14 09:39 | PN ---
Date of Service: 09/14/17 Critical Care Services: Interval History: 72M with htn, hld, cad, chf, paroxysmal afib, etoh cirrhosis, smoker admitted to the ICU with decompensated cirrhosis, acute renal failure, hypercapnic and hypoxic respiratory failure 2/2 pneumonia. The patient has remained lethargic on bipap, however, lab work is improving. Vital Signs: Temp Pulse Resp BP SpO2 FiO2 99.5 F 67 21 88/64 97 65 09/14/17 08:15 09/14/17 08:15 09/14/17 08:15 09/14/17 08:15 09/14/17 08:15 09/14 07:30 Physical Exam: Gen: lethargic but arousable on bipap HEENT: ncat, eomi Lungs: cta, +ronchi, no wheeze Cardiac: s1/s2, irregular Abdomen: soft, +distended, +fluid wave Extremities: +minimal edema Neuro: lethargic and confused, moving all extremities Fluid Balance (Past 24 Hours): I= O= Net Intake & Output 09/12/17 09/13/17 09/14/17 09/15/17 06:59 06:59 06:59 06:59 Intake Total 1964 1379 120 Output Total 500 1595 175 Balance 1464 -216 -55 Weight 84.4 kg 100.2 kg Intake: IV Fluids 892 335 Banana Bag 525 NS to Maintain IV Patency 367 335 IVPB 772 471 ABX - AZITHROMYCIN 250 ABX - CEFTRIAXONE 106 ABX - FLAGYL 200 284 KCL 216 187 Medicated IV 330 CC - Dexmedetomidine/ 26 Precedex GEN - Diltiazem/Cardizem 304 Heparin 183 Oral 300 60 NG Tube Irrigate Amount 120 Output: Urine 0 [place] 410 1595 175 Residual 90 16 Fr Temperature Probe 90 Other: Estimated Void Large Date of Last Bowel 09/13/2017 Movement # Bowel Movements 1 Estimated Stool Amount Large # Voids 1 ADLs: Meal Record Start: 09/12/17 16: 58 Freq: ,, Status: Active Protocol: Created 09/12/17 16:58 System (Rec: 09/12/17 16:58 System [id number]) Document 09/13/17 09:00 [id number] (Rec: 09/13/17 10:20 [id number]) Document 09/13/17 13:00 [id number] (Rec: 09/13/17 13:00 [id number] [id number]) Document 09/13/17 18:00 [id number] (Rec: 09/13/17 18:10 [id number] [id number]) Intake and Output Start: 09/12/17 13: 14 Labs: Laboratory Results - last 24 hr 09/13/17 09/13/17 09/13/17 10:39 13:30 13:30 WBC RBC Hgb Hct MCV MCH MCHC RDW Plt Count MPV Neut % (Auto) Lymph % (Auto) [place] % (Auto) Eos % (Auto) Baso % (Auto) Absolute Neuts (auto) Absolute Lymphs (auto) Absolute Monos (auto) Absolute Eos (auto) Absolute Basos (auto) Absolute Nucleated RBC Nucleated RBC % APTT 25.9 L Patient Temperature Not Reportable ABG pH 7.29 L ABG pH (Temp Correct) Not Reportable ABG pCO2 76 H* ABG pCO2 (Temp Corrct Not Reportable ABG pO2 173 H ABG pO2 (Temp Correct Not Reportable ABG HCO3 30.4 ABG O2 Saturation 99.6 H ABG Base Excess 7.1 H Respiration Rate Not Reportable O2 Delivery Device bipap Ventilator Type Not Reportable Vent Mode Not Reportable FiO2 100 Inspiratory Time Not Reportable PEEP Not Reportable Pressure Support Not Reportable Pressure Control Not Reportable EPAP 8 IPAP 16 BiPAP Not Reportable Sodium Potassium Chloride Carbon Dioxide Anion Gap BUN 53 H Creatinine 1.44 H Est GFR ( Amer) 58.7 Est GFR (Non-Af Amer) 48.5 BUN/Creatinine Ratio Glucose Calcium Magnesium Ammonia 09/13/17 09/13/17 09/13/17 13:30 18:15 18:15 WBC 7.0 RBC 3.95 L Hgb 12.8 L Hct 40 L MCV 100 H MCH 33 H MCHC 33 RDW 18 H Plt Count 77 L MPV 9.2 Neut % (Auto) 92.8 H Lymph % (Auto) 1.4 L Dawson % (Auto) 5.7 Eos % (Auto) 0 Baso % (Auto) 0.1 Absolute Neuts (auto) 6.5 Absolute Lymphs (auto) 0.1 L Absolute Monos (auto) 0.4 Absolute Eos (auto) 0 Absolute Basos (auto) 0 Absolute Nucleated RBC 0 Nucleated RBC % 0.4 APTT Patient Temperature ABG pH ABG pH (Temp Correct) ABG pCO2 ABG pCO2 (Temp Corrct ABG pO2 ABG pO2 (Temp Correct ABG HCO3 ABG O2 Saturation ABG Base Excess Respiration Rate O2 Delivery Device Ventilator Type Vent Mode FiO2 Inspiratory Time PEEP Pressure Support Pressure Control EPAP IPAP BiPAP Sodium 145 Potassium 3.8 Chloride 102 Carbon Dioxide 34 H Anion Gap 9 BUN 51 H Creatinine 1.33 H Est GFR ( Amer) 64.3 Est GFR (Non-Af Amer) 53.2 BUN/Creatinine Ratio 38.3 H Glucose 161 H Calcium 8.1 L Magnesium 2.5 Ammonia 49 09/13/17 09/14/17 09/14/17 21:50 04:10 06:06 WBC RBC Hgb Hct MCV MCH MCHC RDW Plt Count MPV Neut % (Auto) Lymph % (Auto) Dawson % (Auto) Eos % (Auto) Baso % (Auto) Absolute Neuts (auto) Absolute Lymphs (auto) Absolute Monos (auto) Absolute Eos (auto) Absolute Basos (auto) Absolute Nucleated RBC Nucleated RBC % APTT 43.2 H 58.9 H Patient Temperature ABG pH ABG pH (Temp Correct) ABG pCO2 ABG pCO2 (Temp Corrct ABG pO2 ABG pO2 (Temp Correct ABG HCO3 ABG O2 Saturation ABG Base Excess Respiration Rate O2 Delivery Device Ventilator Type Vent Mode FiO2 Inspiratory Time PEEP Pressure Support Pressure Control EPAP IPAP BiPAP Sodium Potassium Chloride Carbon Dioxide Anion Gap BUN 58 H Creatinine 1.28 H Est GFR ( Amer) 67.2 Est GFR (Non-Af Amer) 55.6 BUN/Creatinine Ratio Glucose Calcium Magnesium Ammonia 09/14/17 06:06 WBC 4.6 RBC 3.56 L Hgb 11.5 L Hct 36 L MCV 100 H MCH 32 H MCHC 32 RDW 18 H Plt Count 67 L MPV 8.9 Neut % (Auto) 89.1 H Lymph % (Auto) 2.3 L Dawson % (Auto) 8.4 H Eos % (Auto) 0 Baso % (Auto) 0.2 Absolute Neuts (auto) 4.1 Absolute Lymphs (auto) 0.1 L Absolute Monos (auto) 0.4 Absolute Eos (auto) 0 Absolute Basos (auto) 0 Absolute Nucleated RBC 0 Nucleated RBC % 0.6 APTT Patient Temperature ABG pH ABG pH (Temp Correct) ABG pCO2 ABG pCO2 (Temp Corrct ABG pO2 ABG pO2 (Temp Correct ABG HCO3 ABG O2 Saturation ABG Base Excess Respiration Rate O2 Delivery Device Ventilator Type Vent Mode FiO2 Inspiratory Time PEEP Pressure Support Pressure Control EPAP IPAP BiPAP Sodium Potassium Chloride Carbon Dioxide Anion Gap BUN Creatinine Est GFR ( Amer) Est GFR (Non-Af Amer) BUN/Creatinine Ratio Glucose Calcium Magnesium Ammonia Impression: Problems COPD (chronic obstructive pulmonary disease) (Acute) J44.9 Hypercapnic respiratory failure (Acute) J96.92 Acute renal failure (Acute) Streptococcus pneumoniae pneumonia (Acute) J13 Cirrhosis, alcoholic (Chronic) K70.30 HTN (hypertension) (Chronic) I10 Cardiomyopathy (Chronic) I42.9 Depression (Chronic) F32.9 Thrombocytopenia (Chronic) D69.6 DOT (obstructive sleep apnea) (Chronic) G47.33 not on cpap COPD (chronic obstructive pulmonary disease) (Chronic) J44.9 Paroxysmal atrial tachycardia (Chronic) Tobacco abuse (Chronic) Z72.0 Sepsis (Acute 06/12/14) Plan: Neuro - AMS - hepatic encephalopathy exacerbated by sepsis - c/w lactulose / flagyl - on precedex for agitation, will try to wean CV - afib with rvr, cardiomyopathy - history of SVT in the past - currently on cardizem gtt and rate controlled - will discontinue heparin gtt in the setting of cirrhosis - patient is high risk for bleeding and was not on antiocoagulation as an outpatient - holding diuretics in the setting of sepsis and acute renal failure - will resume home beta virgilio when bp improves Pulm - hypercapnic and hypoxic respiratory failure, copd, dot - 2/2 pneumonia and copd exacerbation - nebulizers q4h prn - steroid taper - wean bipap as tolerated ID - severe sepsis 2/2 step pneumonia - strep pneumo urine ag positive - c/w ceftriaxone / azithro - f/u blood cultures - serial lactates - cautious hydration - would perform paracentesis to r/o sbp, however, patient unable to consent 2/2 encephalopathy GI - etoh cirrhosis - c/w lactulose / flagyl for HE - will restart home beta virgilio for variceal bleeding prophylaxis when bp improves - ppi Renal - acute renal failure - likely 2/2 sepsis and intravascular volume depletion - creatinine improving - strict i/o, daily weights Heme - thrombocytopenia - 2/2 cirrhosis - monitor for bleeding - stop heparin gtt, stop asa Endo - FS ok Nutrition - c/w thiamine/folate/mvi - npo for now - will consider tube feeds if mental status doesnt improve PPx - start ppi - change to HSQ Full Code Critical Care Time: 50 minutes
[2017-09-14 11:15] LABS: EGFR Non-African American 50.1 (>60)
[2017-09-14] MEDS: Diltiazem IV VIAL* 125 MG in NS 0.9% 100 ML* 100 ML IV SCH ×3 (13:29)
[2017-09-14] MEDS: cefTRIAXone VIAL(*) 1,000 MG in NS 0.9% 50 ML* 50 ML IVPB SCH (17:26)
[2017-09-14] MEDS: Azithromycin IV(*) 500 MG in NS 0.9% 250 ML* 250 ML IVPB SCH (17:51)
[2017-09-14] MEDS ORDERED: Lansoprazole susp Kit 3 MG/ML (30 MG = 10 ML) G TUBE SCH (21:00)
[2017-09-14] MEDS: Omeprazole CAP* 20 MG PO SCH (22:06)
[2017-09-14] MEDS: Heparin VIAL(*) 5000 UNITS/ML VIAL (FIVE THOUSAND) SUBCUT SCH (22:06)
[2017-09-15] MEDS: Albuterol 2.5 MG/3 ML NEB.SOL* (0.083%) INH SCH ×4 (02:01→19:58)
[2017-09-15] MEDS: Dexmedetomidine* 400 MCG in NS 0.9% 100 ML* 96 ML IVPB SCH ×7 (04:11→20:25)
[2017-09-15] MEDS: NS 0.9% 1000 ML* 1,000 ML IV SCH (04:11)
[2017-09-15] MEDS: metroNIDAZOLE IV 500 MG/100ML* 500 MG/100 ML BAG IVPB SCH ×3 (04:12→20:18)
[2017-09-15 06:11] LABS: ABS Basophils 0 10^3/ul (0-0.2); ABS Eosinophils 0 10^3/ul (0-0.6); ABS Lymphocytes 0.1 10^3/ul (1.0-4.8); ABS Monocytes 0.2 10^3/ul (0-0.8); ABS Neutrophils 2.8 10^3/ul (1.5-7.7); ABS Nucleated RBC 0 10^3/ul; Eosinophil % 0 % (0-6); Hematocrit 38 % (42-52); Hemoglobin 12.4 g/dl (14.0-18.0); Lymphocyte % 3.1 % (25-47); Mean Corpuscular HGB Conc 32 g/dl (31-36); Mean Corpuscular Hemoglobin 32 pg (27-31); Mean Corpuscular Volume 100 fL (80-94); Mean Platelet Volume 8.8 um3 (7.4-10.4); Nucleated Red Blood Cells % 0.3; Platelet Count 63 10^3/ul (150-450); Red Blood Count 3.81 10^6/ul (4.00-5.40); Red Cell Distribution Width 19 % (10.5-15); White Blood Count 3.2 10^3/ul (3.5-10.8)
[2017-09-15 06:21] LABS: EGFR Non-African American 55.6 (>60)
[2017-09-15 06:23] LABS: INR 1.14 (0.77-1.02)
--- NOTE | 2017-09-15 08:45 | PN ---
Date of Service: 09/15/17 Critical Care Services: Interval History: 72M with htn, hld, cad, chf, paroxysmal afib, etoh cirrhosis, smoker admitted to the ICU with decompensated cirrhosis, acute renal failure, hypercapnic and hypoxic respiratory failure 2/2 pneumonia. 09/15: Delirious when awake. Oxygenation slightly improved. Sodium increasing. Vital Signs: Temp Pulse Resp BP SpO2 FiO2 97.5 F 61 21 99/69 97 60 09/15/17 08:00 09/15/17 08:00 09/15/17 08:00 09/15/17 08:00 09/15/17 08:00 09/15 03:49 Physical Exam: Gen: awake, delirious HEENT: ncat, eomi Lungs: cta, +ronchi, no wheeze Cardiac: s1/s2, irregular Abdomen: soft, +distended, +fluid wave Extremities: +minimal edema Neuro: confused, moving all extremities Fluid Balance (Past 24 Hours): I= O= Net Intake & Output 09/13/17 09/14/17 09/15/17 09/16/17 06:59 06:59 06:59 06:59 Intake Total 1964 1379 1626 Output Total 500 1595 1743 125 Balance 1464 -216 -117 -125 Weight 84.4 kg 100.2 kg 99.3 kg Intake: IV Fluids 892 335 593 ABX - FLAGYL 100 Banana Bag 525 NS to Maintain IV Patency 367 335 493 IVPB 772 471 465 ABX - AZITHROMYCIN 250 255 ABX - CEFTRIAXONE 106 ABX - FLAGYL 200 284 210 KCL 216 187 Medicated IV 330 448 CC - Dexmedetomidine/ 26 296 Precedex GEN - Diltiazem/Cardizem 304 Hep 152 Heparin 183 Oral 300 60 0 NG Tube Irrigate Amount 120 Output: Urine 0 [place] 410 1595 1743 125 Residual 90 16 Fr Temperature Probe 90 Other: Estimated Void Large Date of Last Bowel 09/13/2017 Movement # Bowel Movements 1 0 Estimated Stool Amount Large Large # Voids 1 Labs: Laboratory Results - last 24 hr 09/14/17 09/14/17 09/15/17 10:50 10:50 05:50 WBC RBC Hgb Hct MCV MCH MCHC RDW Plt Count MPV Neut % (Auto) Lymph % (Auto) [place] % (Auto) Eos % (Auto) Baso % (Auto) Absolute Neuts (auto) Absolute Lymphs (auto) Absolute Monos (auto) Absolute Eos (auto) Absolute Basos (auto) Absolute Nucleated RBC Nucleated RBC % INR (Anticoag Therapy) APTT 29.7 Sodium 149 H Potassium 3.6 Chloride 105 Carbon Dioxide 35 H Anion Gap 9 BUN 58 H Creatinine 1.40 H Est GFR ( Amer) 60.6 Est GFR (Non-Af Amer) 50.1 BUN/Creatinine Ratio 41.4 H Glucose 170 H Calcium 7.7 L Total Bilirubin AST ALT Alkaline Phosphatase Ammonia 58 H Total Protein Albumin Globulin Albumin/Globulin Ratio 09/15/17 09/15/17 09/15/17 05:50 05:50 05:50 WBC 3.2 L RBC 3.81 L Hgb 12.4 L Hct 38 L MCV 100 H MCH 32 H MCHC 32 RDW 19 H Plt Count 63 L MPV 8.8 Neut % (Auto) 88.8 H Lymph % (Auto) 3.1 L [place] % (Auto) 6.9 Eos % (Auto) 0 Baso % (Auto) 1.2 Absolute Neuts (auto) 2.8 Absolute Lymphs (auto) 0.1 L Absolute Monos (auto) 0.2 Absolute Eos (auto) 0 Absolute Basos (auto) 0 Absolute Nucleated RBC 0 Nucleated RBC % 0.3 INR (Anticoag Therapy) 1.14 H APTT Sodium 151 H Potassium 3.8 Chloride 112 H Carbon Dioxide 33 H Anion Gap 6 BUN 64 H Creatinine 1.28 H Est GFR ( Amer) 67.2 Est GFR (Non-Af Amer) 55.6 BUN/Creatinine Ratio 50.0 H Glucose 155 H Calcium 7.7 L Total Bilirubin 0.40 AST 25 ALT 62 H Alkaline Phosphatase 55 Ammonia Total Protein 5.7 L Albumin 3.0 L Globulin 2.7 Albumin/Globulin Ratio 1.1 Impression: 72M with htn, hld, cad, chf, paroxysmal afib, etoh cirrhosis, smoker admitted to the ICU with decompensated cirrhosis, acute renal failure, hypercapnic and hypoxic respiratory failure 2/2 pneumonia. Now delirious. Plan: Neuro - AMS - hepatic encephalopathy exacerbated by sepsis - component of delirium - c/w lactulose / flagyl - on precedex for withdrawal - if can tolerate po will start on librium taper CV - afib with rvr, cardiomyopathy - history of SVT in the past - weaned from cardizem gtt - will discontinue heparin gtt in the setting of cirrhosis - patient is high risk for bleeding and was not on antiocoagulation as an outpatient - holding diuretics in the setting of sepsis and acute renal failure - will resume home beta virgilio when bp improves Pulm - hypercapnic and hypoxic respiratory failure, copd, ondina - 2/2 pneumonia and copd exacerbation - nebulizers q4h prn - steroid taper - oxygenation improving - c/w bipap at night ID - severe sepsis 2/2 step pneumonia - strep pneumo urine ag positive - c/w ceftriaxone (day 4 of 7) - blood cultures negative to date - serial lactates - cautious hydration - would perform paracentesis to r/o sbp, however, patient unable to consent 2/2 encephalopathy/delirium GI - etoh cirrhosis - c/w lactulose / flagyl for HE - will restart home beta virgilio for variceal bleeding prophylaxis when bp improves - ppi Renal - acute renal failure, hypernatremia - likely 2/2 sepsis and intravascular volume depletion - creatinine improving - strict i/o, daily weights - 1L LR bolus today - start LR 50cc/hr Heme - thrombocytopenia - 2/2 cirrhosis - monitor for bleeding - stop heparin gtt, stop asa Endo - FS ok Nutrition - c/w thiamine/folate/mvi - npo for now - will consider tube feeds if mental status doesnt improve PPx - start ppi - change to [facility] Critical Care Time: 40 min
[2017-09-15] MEDS: Heparin VIAL(*) 5000 UNITS/ML VIAL (FIVE THOUSAND) SUBCUT SCH ×2 (09:08→20:18)
[2017-09-15] MEDS: Omeprazole CAP* 20 MG PO SCH (09:19)
[2017-09-15] MEDS: Mometasone/Formoter 200/5 MDI INH SCH ×2 (09:45→20:00)
[2017-09-15] MEDS: LORazepam INJ* 2 MG/ML 1 ML VIAL IV PUSH SCH ×3 (10:56→22:59)
[2017-09-15] MEDS: Folic Acid TAB* 1 MG PO SCH ×2 (12:02→16:15)
[2017-09-15] MEDS: Thiamine TAB* 100 MG TAB PO SCH ×2 (12:03→16:15)
[2017-09-15] MEDS: Multivitamins/Minerals TAB PO SCH ×2 (12:03→16:13)
[2017-09-15] MEDS: Metoprolol Tartrate TAB* 25 MG PO SCH ×2 (12:03→20:25)
[2017-09-15] MEDS: methylPREDNISolone SOD 40 MG* 1 ML VIAL IVPB SCH (12:06)
--- NOTE | 2017-09-15 15:15 | RAD ---
INDICATION: NG tube placement. COMPARISON: Comparison is made with a prior chest x-ray study from September 13, 2017. TECHNIQUE: A single portable view of the chest was obtained. FINDINGS: The heart is moderately enlarged and unchanged. There is a nasogastric tube present which projects over the midline. The catheter extends below the left hemidiaphragm and is faintly visualized overlying the left upper quadrant. There is diffuse prominence of the interstitial markings, bibasilar infiltrates small bilateral pleural effusions suggestive of congestive heart failure or pneumonia. The changes at the right lung have progressed from the prior study. IMPRESSION: 1. STATUS POST NASOGASTRIC TUBE PLACEMENT. 2. BILATERAL INFILTRATES AND SMALL PLEURAL EFFUSIONS SUGGESTIVE OF CONGESTIVE HEART FAILURE OR PNEUMONIA WITH PROGRESSION IN THE RIGHT LUNG FROM THE PRIOR STUDY.
[2017-09-15] MEDS: cefTRIAXone VIAL(*) 1,000 MG in NS 0.9% 50 ML* 50 ML IVPB SCH (19:51)
[2017-09-15] MEDS ORDERED: Albuterol 2.5 MG/3 ML NEB.SOL* (0.083%) INH PRN (19:56)
[2017-09-16] MEDS: Dexmedetomidine* 400 MCG in NS 0.9% 100 ML* 96 ML IVPB SCH ×4 (00:26→20:15)
[2017-09-16] MEDS ORDERED: Morphine VIAL* 4 MG/ML VIAL (1 ml vial) IV ONE ×3 (00:33→18:00)
[2017-09-16] MEDS: metroNIDAZOLE IV 500 MG/100ML* 500 MG/100 ML BAG IVPB SCH ×3 (04:07→20:36)
[2017-09-16 05:37] LABS: ABS Basophils 0 10^3/ul (0-0.2); ABS Eosinophils 0 10^3/ul (0-0.6); ABS Lymphocytes 0.2 10^3/ul (1.0-4.8); ABS Monocytes 0.5 10^3/ul (0-0.8); ABS Neutrophils 3.2 10^3/ul (1.5-7.7); ABS Nucleated RBC 0 10^3/ul; Eosinophil % 0 % (0-6); Hematocrit 40 % (42-52); Hemoglobin 12.7 g/dl (14.0-18.0); Lymphocyte % 4.1 % (25-47); Mean Corpuscular HGB Conc 31 g/dl (31-36); Mean Corpuscular Hemoglobin 32 pg (27-31); Mean Corpuscular Volume 102 fL (80-94); Mean Platelet Volume 9.4 um3 (7.4-10.4); Nucleated Red Blood Cells % 0.6; Platelet Count 68 10^3/ul (150-450); Red Blood Count 3.96 10^6/ul (4.00-5.40); Red Cell Distribution Width 19 % (10.5-15); White Blood Count 3.9 10^3/ul (3.5-10.8)
[2017-09-16 05:38] LABS: EGFR Non-African American 61.6 (>60)
[2017-09-16] MEDS ORDERED: D5W 1000 ML BAG* 1,000 ML IV SCH ×2 (05:50→12:15)
[2017-09-16] MEDS: Mometasone/Formoter 200/5 MDI INH SCH ×2 (07:51→20:12)
--- NOTE | 2017-09-16 07:58 | PN ---
Date of Service: 09/16/17 Critical Care Services: Interval History: 72M with htn, hld, cad, chf, paroxysmal afib, etoh cirrhosis, smoker admitted to the ICU with decompensated cirrhosis, acute renal failure, hypercapnic and hypoxic respiratory failure 2/2 pneumonia. 09/15: Delirious when awake. Oxygenation slightly improved. Sodium increasing. 09/16: Remains delirious. NG tube placed yesterday. Sodium 158 this AM. Vital Signs: Temp Pulse Resp BP SpO2 FiO2 98.4 F 90 23 129/81 95 50 09/16/17 06:30 09/16/17 06:30 09/16/17 06:30 09/16/17 06:30 09/16/17 06:30 09/16 04:00 Physical Exam: Gen: awake, delirious HEENT: ncat, eomi Lungs: cta, +ronchi, no wheeze Cardiac: s1/s2, irregular Abdomen: soft, +distended, +fluid wave Extremities: +minimal edema Neuro: confused, moving all extremities Fluid Balance (Past 24 Hours): I= O= Net Intake & Output 09/14/17 09/15/17 09/16/17 09/17/17 06:59 06:59 06:59 06:59 Intake Total 1379 1626 3421.5 Output Total 1595 1743 2695 75 Balance -216 -117 726.5 -75 Weight 100.2 kg 99.3 kg 100.4 kg Intake: IV Fluids 553 419 0866.5 ABX - FLAGYL 100 92.5 LR 1955 NS to Maintain IV Patency 335 493 185 IVPB 471 465 312 ABX - AZITHROMYCIN 255 ABX - CEFTRIAXONE 100 ABX - FLAGYL 284 210 212 KCL 187 Medicated IV 330 448 371 CC - Dexmedetomidine/ 26 296 371 Precedex GEN - Diltiazem/Cardizem 304 Hep 152 Heparin 183 Oral 60 0 0 Tube Feeding 306 Tube Feeding Flush Amount 200 NG Tube Irrigate Amount 120 Output: [place] 1595 1743 2195 75 Liquid Stool 500 Other: # Bowel Movements 0 Estimated Stool Amount Large Labs: Laboratory Results - last 24 hr 09/16/17 09/16/17 05:10 05:10 WBC 3.9 RBC 3.96 L Hgb 12.7 L Hct 40 L MCV 102 H MCH 32 H MCHC 31 RDW 19 H Plt Count 68 L MPV 9.4 Neut % (Auto) 84.0 H Lymph % (Auto) 4.1 L [place] % (Auto) 11.7 H Eos % (Auto) 0 Baso % (Auto) 0.2 Absolute Neuts (auto) 3.2 Absolute Lymphs (auto) 0.2 L Absolute Monos (auto) 0.5 Absolute Eos (auto) 0 Absolute Basos (auto) 0 Absolute Nucleated RBC 0 Nucleated RBC % 0.6 Sodium 158 H* Potassium 4.3 Chloride 116 H Carbon Dioxide 37 H Anion Gap 5 BUN 60 H Creatinine 1.17 Est GFR ( Amer) 74.6 Est GFR (Non-Af Amer) 61.6 BUN/Creatinine Ratio 51.3 H Glucose 149 H Calcium 8.0 L Total Bilirubin 0.40 AST 22 ALT 48 Alkaline Phosphatase 49 Total Protein 5.9 L Albumin 3.1 L Globulin 2.8 Albumin/Globulin Ratio 1.1 Impression: 72M with htn, hld, cad, chf, paroxysmal afib, etoh cirrhosis, smoker admitted to the ICU with decompensated cirrhosis, acute renal failure, hypercapnic and hypoxic respiratory failure 2/2 pneumonia. Now delirious 2/2 etoh withdrawal. Worsening hypernatremia. Plan: Neuro - AMS - hepatic encephalopathy exacerbated by sepsis - component of delirium from withdrawal - c/w lactulose / flagyl - on precedex - if can tolerate po will start on librium taper - will get CT head to eval for other causes of ams CV - afib with rvr, cardiomyopathy - history of SVT in the past - weaned from cardizem gtt - HR now controlled - will discontinue heparin gtt in the setting of cirrhosis - patient is high risk for bleeding and was not on antiocoagulation as an outpatient - holding diuretics in the setting of sepsis and acute renal failure - beta virgilio restarted Pulm - hypercapnic and hypoxic respiratory failure, copd, ondina - 2/2 pneumonia and copd exacerbation - nebulizers q4h prn - steroid taper - oxygenation improving - c/w bipap at night ID - severe sepsis 2/2 step pneumonia - strep pneumo urine ag positive - c/w ceftriaxone (day 5 of 7) - blood cultures negative to date - lactate normal - iv hydration hydration - would perform paracentesis to r/o sbp, however, patient unable to consent 2/2 encephalopathy/delirium GI - etoh cirrhosis - c/w lactulose / flagyl for HE - beta virgilio for variceal bleeding prophylaxis when bp improves - ppi Renal - acute renal failure, hypernatremia - likely 2/2 sepsis and intravascular volume depletion - creatinine improving - strict i/o, daily weights - increased free water via ng to 200cc q4h - started on D5W - repeat bmp at 11am Heme - thrombocytopenia - 2/2 cirrhosis - monitor for bleeding - stop heparin gtt, stop asa Endo - FS ok Nutrition - c/w thiamine/folate/mvi - started on tube feeds yesterday - nutrition consult today PPx - ppi - HSQ Lines - RUE PICC (09/13/17) - change shelton to condom catheter Discussed with healthcare proxy via phone. He will bring advanced directive form today. Critical Care Time: 45 min
--- NOTE | 2017-09-16 09:11 | RAD ---
HISTORY: altered mental status, r/o bleed COMPARISONS: June 12, 2014 TECHNIQUE: Multiple contiguous axial CT scans were obtained of the head without intravenous contrast. FINDINGS: The study is limited by patient motion artifact. HEMORRHAGE/INFARCT: There is no hemorrhage or acute infarct. MASSES/SHIFT: There is no mass or shift. EXTRA-AXIAL SPACES: There are no extra-axial fluid collections. SULCI AND VENTRICLES: The sulci and ventricles are normal in size and position for the patient's stated age. CEREBRUM: There are no focal parenchymal abnormalities. BRAINSTEM: There are no focal parenchymal abnormalities. CEREBELLUM: There are no focal parenchymal abnormalities. VESSELS: The vessels are grossly normal. PARANASAL SINUSES: The paranasal sinuses are clear. ORBITS: The orbits are unremarkable. BONES AND SOFT TISSUE: No bone or soft tissue abnormalities are noted. OTHER: A nasogastric tube is noted. IMPRESSION: NO ACUTE INTRACRANIAL PATHOLOGY.
[2017-09-16] MEDS: Multivitamins ADULT w/MIN LIQ* 15 ML UDC PO SCH (10:02)
[2017-09-16] MEDS: methylPREDNISolone SOD 40 MG* 1 ML VIAL IVPB SCH (10:03)
[2017-09-16] MEDS: Heparin VIAL(*) 5000 UNITS/ML VIAL (FIVE THOUSAND) SUBCUT SCH ×2 (10:09→20:37)
[2017-09-16] MEDS: Thiamine TAB* 100 MG TAB PO SCH (10:10)
[2017-09-16] MEDS: Folic Acid TAB* 1 MG PO SCH (10:10)
[2017-09-16] MEDS: Metoprolol Tartrate TAB* 25 MG PO SCH ×2 (10:10→20:36)
[2017-09-16] MEDS: Lansoprazole susp Kit 3 MG/ML (30 MG = 10 ML) PO SCH (10:13)
[2017-09-16 11:27] LABS: EGFR Non-African American 66.2 (>60)
[2017-09-16] MEDS ORDERED: Lidocaine 2% PF * 5 ML VIAL ONE ×2 (11:31→17:04)
--- NOTE | 2017-09-16 12:04 | OP ---
Operative Report - Blank - Operative Report Date of Operation: 09/16/17 Note: INDICATION: r/o sbp PROCEDURE BOILERMAKER: Artem Walters DO Ultrasound used to terrell location: Yes CONSENT: Consent was obtained from HCP Devednra Bermudez prior to the procedure. Indications, risks, and benefits were explained at length. PROCEDURE SUMMARY: A time-out was performed. My hands were washed immediately prior to the procedure. I wore a surgical cap, mask with protective eyewear, sterile gown and sterile gloves throughout the procedure. The area was cleansed and draped in usual sterile fashion using chlorhexidine scrub. Anesthesia was achieved with 1% lidocaine. The left lower quadrant of the abdomen was prepped and draped in a sterile fashion using chlorhexidine scrub. 1% lidocaine was used to numb the skin, soft tissue and peritoneum. The paracentesis catheter was inserted and advanced with negative pressure until straw colored fluid was aspirated. Approximately 60 mL of ascitic fluid was collected and sent for laboratory analysis. The catheter was then connected to the vaccutainer and 3.2 liters of additional ascitic fluid were drained. The catheter was removed and no leaking was noted. A bandaid was placed over the puncture wound. The patient tolerated the procedure well without any immediate complications. Estimated blood loss was none.
[2017-09-16 12:29] LABS: Creatinine, Urine 92.3 mg/dL; Fentanyl, Ur Not Detected ng/mL (Cutoff: 2); Hydrocodone, Ur Not Detected ng/mL (Cutoff: 25); Hydromorphone, Ur Not Detected ng/mL (Cutoff: 25); Morphine, Ur Not Detected ng/mL (Cutoff: 25); Norfentanyl, Ur Not Detected ng/mL (Cutoff: 2); Oxycodone, Ur Not Detected ng/mL (Cutoff: 25); Tramadol, Ur Not Detected ng/mL (Cutoff: 25)
[2017-09-16 12:41] LABS: Urine Appearance Clear; Urine Blood 2+ (Negative); Urine Color Yellow; Urine Ketones Negative (Negative); Urine Protein Negative (Negative); Urine Red Blood Cell 2+(6-10/hpf) (Absent); Urine Specific Gravity 1.013 (1.010-1.030); Urine Urobilinogen Negative (Negative); Urine White Blood Cell Trace(0-5/hpf) (Absent)
[2017-09-16 12:48] LABS: EGFR Non-African American 69.1 (>60)
--- NOTE | 2017-09-16 13:11 | PN ---
Progress Note - Progress Note Date of Service: 09/16/17 Note: Discussion held with HCP Devendra Segura. He stated that the patient has previously conveyed his wishes not to be placed on a Ventilator and that he would not want CPR in the event of a cardiac arrest. MOLST form filled out and placed in the chart. The patient has been unable to participate in decision making due to his delirium and encephalopathy.
[2017-09-16] MEDS: cefTRIAXone VIAL(*) 1,000 MG in NS 0.9% 50 ML* 50 ML IVPB SCH (16:34)
[2017-09-16 18:31] LABS: EGFR Non-African American 68.3 (>60)
[2017-09-16] MEDS: LORazepam INJ* 2 MG/ML 1 ML VIAL IV PUSH SCH (19:41)
[2017-09-17] MEDS: metroNIDAZOLE IV 500 MG/100ML* 500 MG/100 ML BAG IVPB SCH ×3 (03:54→19:51)
[2017-09-17] MEDS: Dexmedetomidine* 400 MCG in NS 0.9% 100 ML* 96 ML IVPB SCH ×6 (04:21→21:00)
[2017-09-17 05:52] LABS: ABS Basophils 0 10^3/ul (0-0.2); ABS Eosinophils 0 10^3/ul (0-0.6); ABS Lymphocytes 0.4 10^3/ul (1.0-4.8); ABS Monocytes 0.5 10^3/ul (0-0.8); ABS Neutrophils 2.3 10^3/ul (1.5-7.7); ABS Nucleated RBC 0 10^3/ul; Eosinophil % 0.2 % (0-6); Hematocrit 41 % (42-52); Hemoglobin 12.6 g/dl (14.0-18.0); Lymphocyte % 11.7 % (25-47); Mean Corpuscular HGB Conc 31 g/dl (31-36); Mean Corpuscular Hemoglobin 31 pg (27-31); Mean Corpuscular Volume 102 fL (80-94); Mean Platelet Volume 8.6 um3 (7.4-10.4); Nucleated Red Blood Cells % 0.3; Platelet Count 63 10^3/ul (150-450); Red Blood Count 4.02 10^6/ul (4.00-5.40); Red Cell Distribution Width 19 % (10.5-15); White Blood Count 3.1 10^3/ul (3.5-10.8)
[2017-09-17 06:11] LABS: EGFR Non-African American 77.4 (>60)
--- NOTE | 2017-09-17 06:37 | ED ---
Andrea Boyd Tariq, scribed for Jayson Velazquez MD on 09/12/17 at 1354 . Respiratory - HPI Summary HPI Summary: A 72 y/o male ROSIE presents to ED c/o SOB. Additionally c/o generalized sickness and coughing. Pt was a poor historian and did not answer the physician questions for HPI. According to pt, SOB is not bothering him the most, he feels fatigued and weak. The Sx started this morning when he got up out of bed. Pt stated that his mouth feels very dry and he feels thirsty. Patient began to speak about his dog dying and his best friend coming to see him. As per triage, "Pt brought by [facility] for low SPO2 82%, pt placed on 6L supplemental O2 and SPO2 94%, pt has hx COPD and is on supplemental O2 at home, pt heavy smoker. Pt refused ambusance but emt's talked pt into coming to ED". Pt denies CP or weight gain. - History of Current Complaint Chief Complaint: EDShortnessOfBreath Stated Complaint: DIFF BREATHING Time Seen by Provider: 09/12/17 13:24 Hx Obtained From: Patient Onset/Duration: Sudden Onset, Lasting Hours, Still Present Current Severity: None Pain Intensity: 0 Character: Cough (Nonproductive) Sputum Amount: None Aggravating Factor(s): Nothing Alleviating Factor(s): Nothing Associated Signs and Symptoms: SOB - Allergy/Home Medications Allergies/Adverse Reactions: Allergies Allergy/AdvReac Type Severity Reaction Status Date / Time No Known Allergies Allergy Verified 09/22/14 07:45 Home Medications: Home Medications Aspirin TAB* [Aspirin 325 MG TAB*] 650 mg PO Q6H PRN 09/12/17 [History Confirmed 09/12/17] PMH/Surg Hx/FS Hx/Imm Hx Endocrine/Hematology History: Reports: Hx Anemia Denies: Hx Diabetes, Hx Thyroid Disease Cardiovascular History: Reports: Hx Congestive Heart Failure - ACUTE, Hx Coronary Artery Disease, Hx Hypertension - hx, Hx Rheumatic Fever - x2 during childhood Comment Only: Other Cardiovascular Problems/Disorders - paroxysmal atrial tach Respiratory History: Reports: Hx Asthma, Hx Chronic Obstructive Pulmonary Disease (COPD), Hx Pulmonary Edema, Hx Sleep Apnea, Other Respiratory Problems/ Disorders - pulmonary HTN GI History: Reports: Hx Cirrhosis, Hx Gastroesophageal Reflux Disease Denies: Hx Ulcer History: Denies: Hx Renal Disease Musculoskeletal History: Reports: Hx Orthopedic Injury - left tib fib fx, Other Musculoskeletal History - reports de-conditioning, generalized weakness: uses cane/walker Sensory History: Reports: Hx Contacts or Glasses Opthamlomology History: Reports: Hx Contacts or Glasses Psychiatric History: Reports: Hx Anxiety, Hx Depression - Surgical History Surgery Procedure, Year, and Place: Bilateral broken collar bones, rotator cuffs bilaterally, shoulder repair bilaterally, broken upper arms bilaterally, fx hand on left, knee cap damage. Umbilical hernia repair. Infectious Disease History: No Infectious Disease History: Denies: Hx Hepatitis, Hx Human Immunodeficiency Virus (HIV), Traveled Outside the [place] in Last 30 Days - Family History Known Family History: Negative: Hypertension, Diabetes - Social History Alcohol Use: quit prior to admission to [place] [facility] Substance Use Type: Reports: None Smoking Status (MU): Former Smoker Type: Cigarettes Review of Systems Positive: Fatigue, Other - POSITIVE: Generalized sickness. Negative: Fever, Chills Negative: Erythema ENT: Other - POSITIVE: Dry mouth, dehydrated Negative: Sore Throat Negative: Chest Pain Positive: Shortness Of Breath, Cough Negative: Abdominal Pain, Vomiting, Nausea Negative: dysuria, hematuria Negative: Myalgia, Edema Negative: Rash Neurological: Other - NEGATIVE: Dizziness All Other Systems Reviewed And Are Negative: Yes Physical Exam - Summary Physical Exam Summary: Constitutional: Well-developed, Well-nourished, Alert. (-) Distressed Skin: Warm, Dry HENT: Normocephalic; Atraumatic Eyes: Conjunctiva normal Neck: Musculoskeletal ROM normal neck. (-) JVD, (-) Stridor, (-) Tracheal deviation Cardio: Rhythm regular, rate normal, Heart sounds normal; Intact distal pulses; The pedal pulses are 2+ and symmetric. Radial pulses are 2+ and symmetric. (-) Murmur Pulmonary/Chest wall: Effort normal. Bilateral crackles, (-) Wheezes, (-) Rales Abd: Soft, (-), epigastric tenderness, (-) Distension, (-) Guarding, (-) Rebound. Ascites. Musculoskeletal: Trace Edema Lymph: (-) Cervical adenopathy Neuro: Alert, Oriented x3 Psych: Mood and affect Normal Triage Information Reviewed: Yes Vital Signs On Initial Exam: Initial Vitals Temp Pulse Resp BP Pulse Ox 99.2 F 96 19 107/74 94 09/12/17 13:05 09/12/17 13:05 09/12/17 13:05 09/12/17 13:05 09/12/17 13:05 Vital Signs Reviewed: Yes Diagnostics - Vital Signs Vital Signs Temp Pulse Resp BP Pulse Ox 09/12/17 13:05 99.2 F 96 19 107/74 94 - Laboratory Result Diagrams: 09/24/17 06:07 09/24/17 06:07 Lab Statement: Any lab studies that have been ordered have been reviewed, and results considered in the medical decision making process. - Radiology CXR Radiology Interpretation Completed By: Radiologist - SUSPECT MILD INTERSTITIAL CONGESTION WITH ENLARGED CHRONIC SILHOUETTE AND PULMONARY INTERSTITIAL EDEMA. LEFT BASILAR INFILTRATE AND/OR ATELECTASIS. SUGGEST FOLLOW-UP. ED PHYSICIAN REVIEWED THIS RADIOLOGY REPORT. - EKG 1331 Cardiac Rate: Tachycardia - 96 BPM EKG Rhythm: Sinus Tachycardia Disposition - Diagnoses Provider Diagnoses: Hypoxia, Acute renal failure, Pulmonary edema - Physician Notifications Discussed Care Of Patient With: Robert Berry Time Discussed With Above Provider: 15:35 - Critical Care Time Critical Care Time: 30-74 min - 45 minutes Discharge - Sign-Out/Discharge Documenting (check all that apply): Patient Departure - Discharge Plan Condition: Improved Disposition: ADMITTED TO [facility] - Billing Disposition and Condition Condition: IMPROVED Disposition: Admitted to [facility] The documentation as recorded by the Andrea grey Tariq accurately reflects the service I personally performed and the decisions made by , Jayson Velazquez MD.
--- NOTE | 2017-09-17 07:49 | PN ---
Date of Service: 09/17/17 Critical Care Services: Interval History: 72M with htn, hld, cad, chf, paroxysmal afib, etoh cirrhosis, smoker admitted to the ICU with decompensated cirrhosis, acute renal failure, hypercapnic and hypoxic respiratory failure 2/2 pneumonia. 09/15: Delirious when awake. Oxygenation slightly improved. Sodium increasing. 09/16: Remains delirious. NG tube placed yesterday. Sodium 158 this AM. 09/17: Delirium slightly improved. Paracentesis yesterday negative for SBP. Sodium remains high despite volume replacement. 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 Will consult renal today. Of note, there was a documentation error in the intake/output showing intake of 25L of D5W. This is incorrect. Intake is 2.5L. Vital Signs: Temp Pulse Resp BP SpO2 FiO2 97.3 F 77 23 121/69 94 50 09/17/17 06:30 09/17/17 06:30 09/17/17 06:30 09/17/17 06:30 09/17/17 06:30 09/17 03:37 Physical Exam: Gen: awake, delirious HEENT: ncat, eomi Lungs: cta, +ronchi, no wheeze Cardiac: s1/s2, irregular Abdomen: soft, +distended, +fluid wave Extremities: +minimal edema Neuro: confused, moving all extremities Fluid Balance (Past 24 Hours): I= O= Net Intake & Output 09/15/17 09/16/17 09/17/17 09/18/17 06:59 06:59 06:59 06:59 Intake Total 1626 3421.5 00107 Output Total 1743 2695 5435 800 Balance -117 726.5 66567 -800 Weight 99.3 kg 100.4 kg 97.4 kg Intake: IV Fluids 593 2232.5 49885 ABX - FLAGYL 100 92.5 D5W 1000 ml 91600 LR 1955 NS to Maintain IV Patency 493 185 818 IVPB 465 312 ABX - AZITHROMYCIN 255 ABX - CEFTRIAXONE 100 ABX - FLAGYL 210 212 Medicated IV 448 371 353 CC - Dexmedetomidine/ 296 371 353 Precedex Hep 152 Oral 0 0 0 Tube Feeding 306 1330 Tube Feeding Flush Amount 200 353 NG Tube Irrigate Amount 120 Output: Abdominal Drain 3200 [place] 1743 2195 2235 Liquid Stool 500 800 Other: # Bowel Movements 0 Estimated Stool Amount Large Labs: Laboratory Results - last 24 hr 09/12/17 09/16/17 09/16/17 00:34 11:00 11:45 WBC RBC Hgb Hct MCV MCH MCHC RDW Plt Count MPV Neut % (Auto) Lymph % (Auto) Sawyer % (Auto) Eos % (Auto) Baso % (Auto) Absolute Neuts (auto) Absolute Lymphs (auto) Absolute Monos (auto) Absolute Eos (auto) Absolute Basos (auto) Absolute Nucleated RBC Nucleated RBC % Sodium 160 H* Potassium 4.2 Chloride 119 H Carbon Dioxide 37 H Anion Gap 4 BUN 59 H Creatinine 1.10 Est GFR ( Amer) 80.1 Est GFR (Non-Af Amer) 66.2 BUN/Creatinine Ratio 53.6 H Glucose 162 H Serum Osmolality Calcium 8.2 L Magnesium TSH Urine Color Urine Appearance Urine pH Ur Specific [place] Urine Protein Urine Ketones Urine Blood Urine Nitrate Urine Bilirubin Urine Urobilinogen Ur Leukocyte Esterase Urine WBC (Auto) Urine RBC (Auto) Urine Bacteria Urine Osmolality Ur Random Creatinine Ur Random Sodium Ur Random Chloride Ur Random Urea Nitrogn Urine Potassium Urine Glucose Fluid Source Peritonial fluid Fluid Volume 1.5 Fluid Color Yellow Fluid Appearance Cloudy Fluid WBC 316 Fluid RBC 5124 Fluid Tot Cell Count 100 Fluid Neutrophils 37 Fluid Lymphocytes 27 Fluid Monocytes 36 Fluid Other Cells 30 Fluid Cell Count Rvw By U J-Danxotnlk-Xyekxobac Not detected Urine Noroxymorphone Not detected Ur Opiates Note See comment U Normeperidine Screen Not detected Ur Codeine Screen Not detected Urine Dihydrocodeine Not detected U Wispedx-9-u-Glucuron Not detected Ur Buprenorphine Scrn Not detected Ur Norbuprenorphine Not detected U Norbuprenorph Glucur Not detected Ur Morphine Screen Not detected U Qepmgwgp-8-d-Glucuron Not detected Ur 6-Monoacetylmorphine Not detected Ur Hydrocodone Screen Not detected Ur Norhydrocodone Not detected Ur Oxycodone Screen Not detected Ur Noroxycodone Comment Not detected Urine Oxymorphone Not detected U Wczcpa-4-G-Glucuron Not detected Ur EDDP (Meth Metab) Not detected Urine Methadone Screen Not detected U Hydromorphone Screen Not detected U Ivmwmlshcseav-5-a-Glucur Not detected Urine Naloxone Not detected U Typhtqbw-1-r-Glucur Not detected Urine Fentanyl Screen Not detected Ur Norfentanyl Screen Not detected Urine Tapentadol Not detected U Zodjcfzdzl-l-Epsall Not detected Urine Tramadol Sreen Not detected U T-plbjkumxy-Ktozajap Not detected Ur Propoxyphene Screen Not detected Ur Norpropoxyphene Not detected Ur Barbiturates, Quant Negative Ur Phencyclidine (PCP) Negative Urine Amphetamine Negative Ur Benzodiazepine, Qnt Presumptive positive A U Meperidine Screen Not detected Urine Cocaine Negative Urine Marijuana (THC) Negative Adltrnts U Creatinine 92.3 Adulterants Ur pH 5.9 Adulterants Ur Oxidants Negative Ur Adulterants Comment Normal Urine Specific [place] 1.010 09/16/17 09/16/17 09/16/17 12:09 12:09 12:10 WBC RBC Hgb Hct MCV MCH MCHC RDW Plt Count MPV Neut % (Auto) Lymph % (Auto) Sawyer % (Auto) Eos % (Auto) Baso % (Auto) Absolute Neuts (auto) Absolute Lymphs (auto) Absolute Monos (auto) Absolute Eos (auto) Absolute Basos (auto) Absolute Nucleated RBC Nucleated RBC % Sodium 158 H* Potassium TNP Chloride 121 H Carbon Dioxide 34 H Anion Gap 3 BUN 57 H Creatinine 1.06 Est GFR ( Amer) 83.6 Est GFR (Non-Af Amer) 69.1 BUN/Creatinine Ratio 53.8 H Glucose 177 H Serum Osmolality 348 H* Calcium 8.1 L Magnesium TSH 1.71 Urine Color Urine Appearance Urine pH Ur Specific Hudson Urine Protein Urine Ketones Urine Blood Urine Nitrate Urine Bilirubin Urine Urobilinogen Ur Leukocyte Esterase Urine WBC (Auto) Urine RBC (Auto) Urine Bacteria Urine Osmolality Ur Random Creatinine 51.49 Ur Random Sodium < 18 Ur Random Chloride < 22 Ur Random Urea Nitrogn 969 Urine Potassium 9.7 Urine Glucose Fluid Source Fluid Volume Fluid Color Fluid Appearance Fluid WBC Fluid RBC Fluid Tot Cell Count Fluid Neutrophils Fluid Lymphocytes Fluid Monocytes Fluid Other Cells Fluid Cell Count Rvw By U J-Wnvwdpomr-Zxhynlmxf Urine Noroxymorphone Ur Opiates Note U Normeperidine Screen Ur Codeine Screen Urine Dihydrocodeine U Tjzriib-8-q-Glucuron Ur Buprenorphine Scrn Ur Norbuprenorphine U Norbuprenorph Glucur Ur Morphine Screen U Ychjfhcq-0-a-Glucuron Ur 6-Monoacetylmorphine Ur Hydrocodone Screen Ur Norhydrocodone Ur Oxycodone Screen Ur Noroxycodone Comment Urine Oxymorphone U Pcatbo-1-R-Glucuron Ur EDDP (Meth Metab) Urine Methadone Screen U Hydromorphone Screen U Bkcbbkqazgtun-6-c-Glucur Urine Naloxone U Rlgrrmaz-5-l-Glucur Urine Fentanyl Screen Ur Norfentanyl Screen Urine Tapentadol U Fiireagkih-g-[place] Urine Tramadol Sreen U E-kwrrjunhi-Fbknahti Ur Propoxyphene Screen Ur Norpropoxyphene Ur Barbiturates, Quant Ur Phencyclidine (PCP) Urine Amphetamine Ur Benzodiazepine, Qnt U Meperidine Screen Urine Cocaine Urine Marijuana (THC) Adltrnts U Creatinine Adulterants Ur pH Adulterants Ur Oxidants Ur Adulterants Comment Urine Specific [place] 09/16/17 09/16/17 09/16/17 12:10 12:10 18:00 WBC RBC Hgb Hct MCV MCH MCHC RDW Plt Count MPV Neut % (Auto) Lymph % (Auto) Sawyer % (Auto) Eos % (Auto) Baso % (Auto) Absolute Neuts (auto) Absolute Lymphs (auto) Absolute Monos (auto) Absolute Eos (auto) Absolute Basos (auto) Absolute Nucleated RBC Nucleated RBC % Sodium 161 H* Potassium 4.0 Chloride 121 H Carbon Dioxide 35 H Anion Gap 5 BUN 54 H Creatinine 1.07 Est GFR ( Amer) 82.7 Est GFR (Non-Af Amer) 68.3 BUN/Creatinine Ratio 50.5 H Glucose 161 H Serum Osmolality Calcium 8.1 L Magnesium TSH Urine Color Yellow Urine Appearance Clear Urine pH 6.0 Ur Specific [place] 1.013 Urine Protein Negative Urine Ketones Negative Urine Blood 2+ A Urine Nitrate Negative Urine Bilirubin Negative Urine Urobilinogen Negative Ur Leukocyte Esterase Trace A Urine WBC (Auto) Trace(0-5/hpf) Urine RBC (Auto) 2+(6-10/hpf) A Urine Bacteria Absent Urine Osmolality 459 Ur Random Creatinine Ur Random Sodium Ur Random Chloride Ur Random Urea Nitrogn Urine Potassium Urine Glucose Negative Fluid Source Fluid Volume Fluid Color Fluid Appearance Fluid WBC Fluid RBC Fluid Tot Cell Count Fluid Neutrophils Fluid Lymphocytes Fluid Monocytes Fluid Other Cells Fluid Cell Count Rvw By U O-Wlivkgqvw-Ignvctmzh Urine Noroxymorphone Ur Opiates Note U Normeperidine Screen Ur Codeine Screen Urine Dihydrocodeine U Bpjdvpj-3-q-Glucuron Ur Buprenorphine Scrn Ur Norbuprenorphine U Norbuprenorph Glucur Ur Morphine Screen U Fajnfmsx-0-a-Glucuron Ur 6-Monoacetylmorphine Ur Hydrocodone Screen Ur Norhydrocodone Ur Oxycodone Screen Ur Noroxycodone Comment Urine Oxymorphone U Meahcv-8-W-Glucuron Ur EDDP (Meth Metab) Urine Methadone Screen U Hydromorphone Screen U Ryjjsxqvbnecm-2-z-Glucur Urine Naloxone U Zrxxeipw-4-h-Glucur Urine Fentanyl Screen Ur Norfentanyl Screen Urine Tapentadol U Osaydebjyt-q-Qbozpm Urine Tramadol Sreen U B-aacugaonh-Omijoipz Ur Propoxyphene Screen Ur Norpropoxyphene Ur Barbiturates, Quant Ur Phencyclidine (PCP) Urine Amphetamine Ur Benzodiazepine, Qnt U Meperidine Screen Urine Cocaine Urine Marijuana (THC) Adltrnts U Creatinine Adulterants Ur pH Adulterants Ur Oxidants Ur Adulterants Comment Urine Specific [place] 09/17/17 09/17/17 04:55 04:55 WBC 3.1 L RBC 4.02 Hgb 12.6 L Hct 41 L MCV 102 H MCH 31 MCHC 31 RDW 19 H Plt Count 63 L MPV 8.6 Neut % (Auto) 72.2 Lymph % (Auto) 11.7 L Sawyer % (Auto) 15.3 H Eos % (Auto) 0.2 Baso % (Auto) 0.6 Absolute Neuts (auto) 2.3 Absolute Lymphs (auto) 0.4 L Absolute Monos (auto) 0.5 Absolute Eos (auto) 0 Absolute Basos (auto) 0 Absolute Nucleated RBC 0 Nucleated RBC % 0.3 Sodium 162 H* Potassium 3.8 Chloride 123 H Carbon Dioxide 38 H Anion Gap 1 L BUN 48 H Creatinine 0.96 Est GFR ( Amer) 93.7 Est GFR (Non-Af Amer) 77.4 BUN/Creatinine Ratio 50.0 H Glucose 143 H Serum Osmolality Calcium 8.1 L Magnesium 3.0 H TSH Urine Color Urine Appearance Urine pH Ur Specific [place] Urine Protein Urine Ketones Urine Blood Urine Nitrate Urine Bilirubin Urine Urobilinogen Ur Leukocyte Esterase Urine WBC (Auto) Urine RBC (Auto) Urine Bacteria Urine Osmolality Ur Random Creatinine Ur Random Sodium Ur Random Chloride Ur Random Urea Nitrogn Urine Potassium Urine Glucose Fluid Source Fluid Volume Fluid Color Fluid Appearance Fluid WBC Fluid RBC Fluid Tot Cell Count Fluid Neutrophils Fluid Lymphocytes Fluid Monocytes Fluid Other Cells Fluid Cell Count Rvw By U R-Otsrzvfcf-Hecfjfzdl Urine Noroxymorphone Ur Opiates Note U Normeperidine Screen Ur Codeine Screen Urine Dihydrocodeine U Upxaqks-1-m-Glucuron Ur Buprenorphine Scrn Ur Norbuprenorphine U Norbuprenorph Glucur Ur Morphine Screen U Estxtzxk-5-m-Glucuron Ur 6-Monoacetylmorphine Ur Hydrocodone Screen Ur Norhydrocodone Ur Oxycodone Screen Ur Noroxycodone Comment Urine Oxymorphone U Ybquai-5-E-Glucuron Ur EDDP (Meth Metab) Urine Methadone Screen U Hydromorphone Screen U Gaxksfhqktobp-7-g-Glucur Urine Naloxone U Tohpqnkt-3-k-Glucur Urine Fentanyl Screen Ur Norfentanyl Screen Urine Tapentadol U Qwhadlcdrj-t-Hjlnkf Urine Tramadol Sreen U N-wocakbtzo-Qvmdnmyd Ur Propoxyphene Screen Ur Norpropoxyphene Ur Barbiturates, Quant Ur Phencyclidine (PCP) Urine Amphetamine Ur Benzodiazepine, Qnt U Meperidine Screen Urine Cocaine Urine Marijuana (THC) Adltrnts U Creatinine Adulterants Ur pH Adulterants Ur Oxidants Ur Adulterants Comment Urine Specific [place] Impression: 72M with htn, hld, cad, chf, paroxysmal afib, etoh cirrhosis, smoker admitted to the ICU with decompensated cirrhosis, acute renal failure, hypercapnic and hypoxic respiratory failure 2/2 pneumonia. Now delirious 2/2 etoh withdrawal. 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 Plan: Neuro - AMS - delirium slightly improved - multifactorial from hepatic encephalopathy exacerbated by sepsis, delirium from withdrawal, and hypernatremia - c/w lactulose / flagyl - on precedex - ct head negative CV - afib with rvr, cardiomyopathy - HR now controlled - patient is high risk for bleeding and was not on antiocoagulation as an outpatient - holding diuretics in the setting of sepsis and acute renal failure - beta virgilio restarted Pulm - hypercapnic and hypoxic respiratory failure, copd, ondina - 2/2 pneumonia and copd exacerbation - nebulizers q4h prn - steroid taper - oxygenation improving - c/w bipap at night ID - severe sepsis 2/2 step pneumonia - strep pneumo urine ag positive - c/w ceftriaxone (day 6 of 7) - blood cultures negative to date - lactate normal - ascitic fluid negative for sbp GI - etoh cirrhosis - c/w lactulose / flagyl for HE - beta virgilio for variceal bleeding prophylaxis - ppi Renal - acute renal failure, hypernatremia - creatinine improving - likely has diabetes insipidus but unclear cause - will consult renal today - will discontinue d5w - fluid deprivation test Heme - thrombocytopenia - 2/2 cirrhosis - monitor for bleeding Endo - diabetes insipidus - ct head negative - fluid deprivation test Nutrition - c/w thiamine/folate/mvi - started on tube feeds yesterday PPx - ppi - HSQ Lines - RUE PICC (09/13/17) - nikita for strict i/o DNR/DNI Critical Care Time: 50
[2017-09-17] MEDS: Mometasone/Formoter 200/5 MDI INH SCH ×2 (08:28→20:24)
[2017-09-17] MEDS: Multivitamins ADULT w/MIN LIQ* 15 ML UDC PO SCH (09:55)
[2017-09-17] MEDS: Folic Acid TAB* 1 MG PO SCH (09:55)
[2017-09-17] MEDS: Heparin VIAL(*) 5000 UNITS/ML VIAL (FIVE THOUSAND) SUBCUT SCH ×2 (09:55→20:21)
[2017-09-17] MEDS: Thiamine TAB* 100 MG TAB PO SCH (09:55)
[2017-09-17] MEDS: Metoprolol Tartrate TAB* 25 MG PO SCH (09:55)
[2017-09-17] MEDS: Lansoprazole susp Kit 3 MG/ML (30 MG = 10 ML) PO SCH (09:56)
[2017-09-17] MEDS ORDERED: NS 0.9% IVPB ONE (11:15)
[2017-09-17] MEDS ORDERED: DESMOPRESSIN ACETATE IVPB ONE (11:15)
[2017-09-17 12:28] LABS: Triglycerides (BF) 24 mg/dL
--- NOTE | 2017-09-17 15:25 | PN ---
Progress Note - Progress Note Date of Service: 09/17/17 Note: Urine OSM 442 in AM. Patient given 4mcg of DDAVP and repeat OSM 441. Indicating nephrogenic diabetes insipidus. Etiology is unclear at this point. Will resume free water replacement via d5w and ngt tube. Case discussed with Dr. Pereyra of nephrology.
[2017-09-17] MEDS: cefTRIAXone VIAL(*) 1,000 MG in NS 0.9% 50 ML* 50 ML IVPB SCH (16:37)
[2017-09-17] MEDS: D5W 1000 ML BAG* 1,000 ML IV SCH (18:42)
[2017-09-17 18:48] LABS: EGFR Non-African American 83.4 (>60)
[2017-09-17] MEDS: Metoprolol Tartrate TAB* 25 MG NG TUBE SCH (20:23)
[2017-09-18] MEDS: Dexmedetomidine* 400 MCG in NS 0.9% 100 ML* 96 ML IVPB SCH ×5 (02:49→22:32)
[2017-09-18] MEDS: metroNIDAZOLE IV 500 MG/100ML* 500 MG/100 ML BAG IVPB SCH (03:34)
[2017-09-18] MEDS: D5W 1000 ML BAG* 1,000 ML IV SCH (03:59)
[2017-09-18 05:18] LABS: ABS Basophils 0 10^3/ul (0-0.2); ABS Eosinophils 0.1 10^3/ul (0-0.6); ABS Lymphocytes 0.3 10^3/ul (1.0-4.8); ABS Monocytes 0.4 10^3/ul (0-0.8); ABS Neutrophils 2.8 10^3/ul (1.5-7.7); ABS Nucleated RBC 0 10^3/ul; Eosinophil % 1.5 % (0-6); Hematocrit 40 % (42-52); Hemoglobin 12.6 g/dl (14.0-18.0); Lymphocyte % 8.3 % (25-47); Mean Corpuscular HGB Conc 31 g/dl (31-36); Mean Corpuscular Hemoglobin 32 pg (27-31); Mean Corpuscular Volume 103 fL (80-94); Mean Platelet Volume 9.2 um3 (7.4-10.4); Nucleated Red Blood Cells % 0.2; Platelet Count 47 10^3/ul (150-450); Red Blood Count 3.91 10^6/ul (4.00-5.40); Red Cell Distribution Width 20 % (10.5-15); White Blood Count 3.6 10^3/ul (3.5-10.8)
[2017-09-18 05:32] LABS: EGFR Non-African American 86.8 (>60)
[2017-09-18] MEDS ORDERED: Haloperidol INJ IV/IM* 5 MG/ML AMP ONE (06:09)
[2017-09-18] MEDS ORDERED: Haloperidol INJ IV/IM* 5 MG/ML AMP IV SLOW PU ONE (06:15)
[2017-09-18] MEDS: Mometasone/Formoter 200/5 MDI INH SCH ×2 (07:18→19:08)
[2017-09-18] MEDS ORDERED: D5W 1000 ML BAG* 1,000 ML IV SCH ×3 (08:56→18:46)
--- NOTE | 2017-09-18 09:20 | PN ---
Progress Note - Progress Note Date of Service: 09/18/17 Note: Progress Note Critical Care 24 hour events/significant events: -overnight remains on precedex; on d5w -still making large amounts of urine -afebrile, BP stable. in NSR -confused now, awake, alert, no distress noted Tele: nsr Vitals: Vital Signs Temp 98.4 F 09/18/17 07:00 Pulse 88 09/18/17 07:00 Resp 26 09/18/17 07:00 BP 133/84 09/18/17 06:00 Pulse Ox 90 09/18/17 07:00 Intake & Output 09/17/17 09/18/17 09/18/17 18:59 06:59 18:59 Intake Total 875 3431 Output Total 2200 1325 Balance -1325 2106 Weight 213 lb 2.992 oz Intake: IV Fluids 227 2166 D5W 1000 ml 1113 LR 978 NS to Maintain IV Patency 227 75 IVPB 267 LR 48 NS to Maintain IV Patency 219 Medicated IV 103 222 CC - Dexmedetomidine/ 103 222 Precedex Tube Feeding 352 526 Tube Feeding Flush Amount 193 250 Output: Shelton 1200 1125 Liquid Stool 1000 200 O2/Vent: 12 L o2, rr 20, sat 96% Infusions: d5w 100cc/hr, precedex 1 Medications: Albuterol (Ventolin 2.5 Mg/3 Ml Neb.My*) 2.5 mg INH Q4H PRN PRN Reason: SOB/WHEEZING Folic Acid (Folvite Tab*) 1 mg NG TUBE DAILY [facility] Heparin Sodium (Porcine) (Heparin Flush Picc/Ml/Cvc(*)) 1 - 3 ml FLUSH 0600, 1800 [facility]; Protocol Last Admin: 09/18/17 05:55 Dose: Not Given Metronidazole/Sodium Chloride (Flagyl 500 Mg Ivpb*) 500 mg in 100 mls @ 100 mls /hr IVPB Q8HR@0400,1200,2000 [facility] Last Admin: 09/18/17 03:34 Dose: 100 mls/hr Dexmedetomidine HCl 400 mcg/ (Sodium Chloride) 100 mls @ 12.25 mls/hr IVPB Q8H [facility]; Protocol Last Admin: 09/18/17 09:09 Dose: 12.25 mls/hr Dextrose (D5w 1000 Ml Bag*) 1,000 mls @ 150 mls/hr IV PER RATE [facility] Ceftriaxone Sodium 1,000 mg/ (Sodium Chloride) 50 mls @ 200 mls/hr IVPB Q24H [facility] Lactulose (Lactulose*) 30 ml NG TUBE TID [facility] Last Admin: 09/17/17 20:21 Dose: 30 ml Lansoprazole (Lansoprazole Susp Kit) 30 mg PO DAILY [facility] Last Admin: 09/17/17 09:56 Dose: 30 mg Lorazepam (Ativan Inj*) 0 - 6 mg IV PUSH .PER [facility] PROTOCOL [facility]; Protocol Last Admin: 09/16/17 19:41 Dose: 2 mg Metoprolol Tartrate (Lopressor Tab*) 25 mg NG TUBE BID [facility] Last Admin: 09/17/17 20:23 Dose: 25 mg Mometasone Furoate/Formoterol Fumar (Dulera 200/5 Mdi*) 2 puff INH BID [facility] Last Admin: 09/18/17 07:18 Dose: Not Given Multivitamins (Theragran W/Minerals Liq*) 15 ml NG TUBE DAILY [facility] Thiamine HCl (Vitamin B-1 Tab*) 100 mg NG TUBE DAILY [facility] Physical Exam: General: awake, alert, no distress, no diaphoresis, confused Head: normocephalic, atraumatic HEENT: no pallor, no icterus, dry mucous membranes Neck: soft, supple, no jvd, no stridor CVS: normal rate, regular, no murmur Resp: bilateral air entry, no rhales, no wheeze, no rhonchi, no acc muscle use Abdomen: soft, nontender, nondistended, bowel sounds present Ext: pulses+, warm, no edema Skin: intact, no breakdown, no dryness Neuro: awake, alert, orientedx1, moving all extremities, no gross focal deficit Labs: Laboratory Results - last 24 hr 09/16/17 09/16/17 09/16/17 11:45 11:45 11:45 WBC RBC Hgb Hct MCV MCH MCHC RDW Plt Count MPV Neut % (Auto) Lymph % (Auto) Wise % (Auto) Eos % (Auto) Baso % (Auto) Absolute Neuts (auto) Absolute Lymphs (auto) Absolute Monos (auto) Absolute Eos (auto) Absolute Basos (auto) Absolute Nucleated RBC Nucleated RBC % Sodium Potassium Chloride Carbon Dioxide Anion Gap BUN Creatinine Est GFR ( Amer) Est GFR (Non-Af Amer) BUN/Creatinine Ratio Glucose Calcium Ionized Calcium Magnesium Total Bilirubin Direct Bilirubin Indirect Bilirubin AST ALT Alkaline Phosphatase Total Creatine Kinase Total Protein Albumin Globulin Albumin/Globulin Ratio Urine Osmolality Fluid Type Peritoneal fluid Fluid Source Peritoneal fluid Peritoneal Fluid pH 7.9 Fluid Amylase 11 Fluid Triglycerides 24 09/17/17 09/17/17 09/17/17 11:25 13:30 18:16 WBC RBC Hgb Hct MCV MCH MCHC RDW Plt Count MPV Neut % (Auto) Lymph % (Auto) Wise % (Auto) Eos % (Auto) Baso % (Auto) Absolute Neuts (auto) Absolute Lymphs (auto) Absolute Monos (auto) Absolute Eos (auto) Absolute Basos (auto) Absolute Nucleated RBC Nucleated RBC % Sodium 168 H* Potassium 3.8 Chloride 128 H Carbon Dioxide 35 H Anion Gap 5 BUN 36 H Creatinine 0.90 Est GFR ( Amer) 100.9 Est GFR (Non-Af Amer) 83.4 BUN/Creatinine Ratio 40.0 H Glucose 129 H Calcium 7.8 L Ionized Calcium Magnesium 2.6 Total Bilirubin 0.50 Direct Bilirubin 0.20 H Indirect Bilirubin 0.3 AST 20 ALT 32 Alkaline Phosphatase 44 Total Creatine Kinase 71 Total Protein 5.3 L Albumin 2.8 L Globulin 2.5 Albumin/Globulin Ratio 1.1 Urine Osmolality 442 441 Fluid Type Fluid Source Fluid pH Fluid Amylase Fluid Triglycerides 09/17/17 09/18/17 09/18/17 18:16 05:00 05:00 WBC 3.6 RBC 3.91 L Hgb 12.6 L Hct 40 L MCV 103 H MCH 32 H MCHC 31 RDW 20 H Plt Count 47 L MPV 9.2 Neut % (Auto) 78.1 Lymph % (Auto) 8.3 L Wise % (Auto) 11.7 H Eos % (Auto) 1.5 Baso % (Auto) 0.4 Absolute Neuts (auto) 2.8 Absolute Lymphs (auto) 0.3 L Absolute Monos (auto) 0.4 Absolute Eos (auto) 0.1 Absolute Basos (auto) 0 Absolute Nucleated RBC 0 Nucleated RBC % 0.2 Sodium 166 H* Potassium 4.0 Chloride 126 H Carbon Dioxide 37 H Anion Gap 3 BUN 29 H Creatinine 0.87 Est GFR ( Amer) 105.0 Est GFR (Non-Af Amer) 86.8 BUN/Creatinine Ratio 33.3 H Glucose 127 H Calcium 7.7 L Ionized Calcium 3.81 L Magnesium 2.5 Total Bilirubin Direct Bilirubin Indirect Bilirubin AST ALT Alkaline Phosphatase Total Creatine Kinase Total Protein Albumin Globulin Albumin/Globulin Ratio Urine Osmolality Fluid Type Fluid Source Fluid pH Fluid Amylase Fluid Triglycerides Imaging: cxr 09/15 - right lower lobe consolidation+ Assessment 72y M pmhx active smoker, COPD on home O2, CAD, HTN, sleep apnea; admitted for hypoxia, suspected pneumonia. upgraded to ICU for delirium and hypoxia. 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 on lactulose still. check ammonia today. noted CT head 09/15 neg for acute findings. cont precedex, wean, may consider seroquel to bridge delirium. does not appear to be alcohol withdrawal at this time. hypernatremia may also be causing mental status changes. CVS- nsr, bp stable. cont metoprolol 25 bid. on d5w for hypernatremia. Resp- remains on 12L NC, no active resp distress. IV ceftriaxone day 09/14 for strept ag+ pneumonia. no NIV indicated. cont to wean down. no steroids needed, no wheezing. check cxr today. ID- afebrile. wbc normal. strept ag+, suspected strept pneumonia. IV ceftriaxone day 09/14 today, will d/c after today and monitor. cxr today. GI- ngt was pulled out by patient. may need to have another placed. would prefer to cont lactulose atleast once daily. check ammonia today. loose stool 2/ 2 to lactulose+. consider more free water intake if mental status allows. Renal- Cr okay, K okay. No acidosis. Na 166, increase d5w to 150cc/hour. check bmp q6h. call placed to nephrology for further management of DI; thiazide diuretic? some volume loss from lactulose also. shelton+. Heme- hg stable. thrombocytopenia+. d/c heparin sq for now. Endo- fingerstick as needed. Musculsk- oob to chair as tolerated. pressure ulcer proph.. Wounds- none Nutrition- eval for PO diet today DVT prophylaxis: scds GI prophylaxis: ppi Central Line: picc+ Arterial Line: no Shelton Cathetor: yes Disposition: ICU Code Status: DNR/DNI Total Critical Care time is 40 minutes, excluding procedures/teaching Sj Syed MD Biochemistry Professor (Electronically Signed)
--- NOTE | 2017-09-18 11:37 | RAD ---
INDICATION: Pneumonia and hypoxia. COMPARISON: Comparison is made with a prior study from September 15, 2017. TECHNIQUE: A portable view of the chest was obtained. FINDINGS: There is a PICC present. The catheter tip projects over the right atrium. There has been removal of a nasogastric catheter. The heart is within normal limits in size for this portable exam. There are small infiltrates at both lung bases and small bilateral pleural effusions which appear improved from the prior study. IMPRESSION: SMALL BIBASILAR INFILTRATES AND PLEURAL EFFUSIONS SLIGHTLY IMPROVED FROM THE PRIOR STUDY.
--- NOTE | 2017-09-18 11:55 | RAD ---
HISTORY: confirm corpak placement COMPARISONS: September 18, 2017 at 10:11 AM VIEWS: 2: frontal portable view of the chest at 11:12 AM FINDINGS: LINES AND TUBES: A gastric tube is noted. The tip is below the [id number] of the current examination, but is below the diaphragm. CARDIOMEDIASTINAL SILHOUETTE: The cardiomediastinal silhouette is stable. PLEURA: There is blunting of the costophrenic angles bilaterally. LUNG PARENCHYMA: There is persistent confluent alveolar opacification of the lung bases bilaterally. ABDOMEN: The upper abdomen is clear. There is no subphrenic gas. BONES AND SOFT TISSUES: There is postsurgical change to the right shoulder. IMPRESSION: BIBASILAR ATELECTASIS VERSUS CONSOLIDATION WITH SMALL BILATERAL PLEURAL EFFUSIONS. LINES AND TUBES ABOVE.
[2017-09-18] MEDS: Multivitamins ADULT w/MIN LIQ* 15 ML UDC NG TUBE SCH (12:14)
[2017-09-18] MEDS: Metoprolol Tartrate TAB* 25 MG NG TUBE SCH ×3 (12:15→23:28)
[2017-09-18] MEDS: Lansoprazole susp Kit 3 MG/ML (30 MG = 10 ML) PO SCH (12:15)
--- NOTE | 2017-09-18 12:17 | CONS ---
NEPHROLOGY CONSULTATION: DATE OF CONSULT: 09/18/17 HISTORY OF PRESENT ILLNESS: Mr. Basurto is a 72-year-old gentleman with multiple medical conditions. 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 He presented because of an altered mental status. He was found to be hypoxic and hypercapnic. It appears from the old records that he has chronic CO2 retention from his COPD. At this time that I saw him, he was mumbling, but not making any intelligible sentences at all and I have no idea what he was trying to say to me. During his hospitalization, he has become hypernatremic precipitating this consultation. He has not been receiving a significant salt load, but he has been having watery diarrhea secondary to the lactulose he has been receiving for a very high ammonia level. He receives most of his care through the [facility]. MEDICATIONS: At home include: 1. Chlordiazepoxide. 2. Torsemide. 3. Metoprolol. 4. Gabapentin. 5. Aspirin. ALLERGIES: No known allergies. SOCIAL HISTORY: Apparently, he is a smoker. He has a history of alcohol abuse and apparently was found by a friend with a bunch of beer cans lying around him. REVIEW OF SYSTEMS: Obviously, review of systems is unobtainable. At the time I saw him, he was somewhat disheveled, responsive, but not intelligible. PHYSICAL EXAM: He is afebrile. His blood pressure is 114/59 with a pulse of 77. There is no jugular venous distention. There is positive skin tenting. His mucous membranes are moist. The chest revealed upper airway noise. The heart reveals a regular rhythm without murmurs. The abdomen was distended. There was a positive fluid wave, then he recently had a paracentesis. Bones, joints, extremities revealed no cyanosis, clubbing, or edema. DIAGNOSTIC STUDIES/LAB DATA: Review of his laboratory studies reveals a sodium of 160, potassium of 4.9, total CO2 of 37, chloride 119, glucose 162, BUN 59, creatinine 1.1, calcium 8.2. He had a serum osmolality of 384. He had a urine osmolality of 459. His urinary sodium was less than 18. His urinary potassium was 9.7. IMPRESSION: 1. Hypernatremia. 2. Cirrhosis with ascites. 3. Chronic obstructive pulmonary disease. 4. Congestive heart failure. 5. Alcoholism. 6. Pulmonary artery hypertension. 7. Obstructive sleep apnea. For the most part, a diagnosis of hypernatremia is either more salt going in or more water going out. Occasionally, this can be due to gastrointestinal losses and the lactulose could produce some free water losses, but the volumes did not look to be adequate to produce this degree of hypernatremia. Some glycosuria with a high blood glucose could produce a free water loss, but again his level of hyperglycemia does not appear adequate to produce this level of hypernatremia. He has been sweating profusely. He has not had a great deal of vomiting nor NG aspirate. The amount of ascites removed would not be probably the likely cause of this. There is the possibility of diabetes insipidus. Typically, we discriminate nephrogenic diabetes insipidus from central diabetes insipidus with an administration of some DDAVP. 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 Unfortunately, he did have an episode of acute renal insufficiency, from which he is recovering. As a result, the nephrogenic diabetes insipidus may be recoverable with time if his renal function continues to recover. In the meantime, the main therapy should be increased free water administration, which I have recommended. This will be increased at this point. We will follow his serum sodium and increase his free water administration as required. It is a little difficult to calculate the usual free water deficits in this setting because of the significant amount of ascites that obscures estimate of his total lean body mass. [id number]/[facility] #: [id number] [facility]
[2017-09-18] MEDS: Thiamine TAB* 100 MG TAB NG TUBE SCH (12:19)
[2017-09-18] MEDS: Folic Acid TAB* 1 MG NG TUBE SCH (12:19)
[2017-09-18 14:00] LABS: EGFR Non-African American 87.9 (>60)
[2017-09-18] MEDS ORDERED: cefTRIAXone VIAL(*) 1,000 MG in NS 0.9% 50 ML* 50 ML IVPB SCH (17:00)
[2017-09-18 18:42] LABS: EGFR Non-African American 89.1 (>60)
[2017-09-18] MEDS ORDERED: QUEtiapine TAB* 25 MG PO ONE (23:00)
[2017-09-19 00:43] LABS: EGFR Non-African American 98.4 (>60)
[2017-09-19] MEDS: Nystatin OINT* 15 GM TOPICAL SCH ×4 (01:31→21:23)
[2017-09-19] MEDS: Dexmedetomidine* 400 MCG in NS 0.9% 100 ML* 96 ML IVPB SCH ×4 (03:22→20:23)
[2017-09-19 06:18] LABS: Hematocrit 39 % (42-52); Hemoglobin 12.3 g/dl (14.0-18.0); Mean Corpuscular HGB Conc 31 g/dl (31-36); Mean Corpuscular Hemoglobin 32 pg (27-31); Mean Corpuscular Volume 102 fL (80-94); Mean Platelet Volume 9.9 um3 (7.4-10.4); Platelet Count 40 10^3/ul (150-450); Red Blood Count 3.86 10^6/ul (4.00-5.40); Red Cell Distribution Width 19 % (10.5-15); White Blood Count 3.7 10^3/ul (3.5-10.8)
[2017-09-19 06:29] LABS: EGFR Non-African American 104.6 (>60)
[2017-09-19] MEDS: Multivitamins ADULT w/MIN LIQ* 15 ML UDC NG TUBE SCH (08:34)
[2017-09-19] MEDS: Folic Acid TAB* 1 MG NG TUBE SCH (08:34)
[2017-09-19] MEDS: Thiamine TAB* 100 MG TAB NG TUBE SCH (08:34)
[2017-09-19] MEDS: Lansoprazole susp Kit 3 MG/ML (30 MG = 10 ML) PO SCH (08:36)
[2017-09-19] MEDS: Metoprolol Tartrate TAB* 25 MG NG TUBE SCH ×2 (08:36→21:23)
[2017-09-19] MEDS ORDERED: D5W 1000 ML BAG* 1,000 ML IV SCH (08:52)
--- NOTE | 2017-09-19 09:52 | PN ---
Progress Note - Progress Note Date of Service: 09/19/17 Note: Progress Note Critical Care 24 hour events/significant events: -restless overnight; on precedex, given seroquel; this morning awake/alert, no distress -some loose stools+ -was on NIV overnight; this morning on salter now and switched over to 8L, sats upper 90s no resp distress Tele: nsr/sinus kurt Vitals: Vital Signs Temp 97.3 F 09/19/17 08:00 Pulse 66 09/19/17 09:21 Resp 18 09/19/17 09:21 BP 95/49 09/19/17 08:00 Pulse Ox 98 09/19/17 09:21 Intake & Output 09/18/17 09/19/17 09/19/17 18:59 06:59 18:59 Intake Total 1900 2834 Output Total 1050 761 100 Balance 850 2073 -100 Intake: IV Fluids 1684 2181 D5W 1000 ml 1571 1605 LR 524 NS to Maintain IV Patency 113 52 IVPB 52 NS to Maintain IV Patency 52 Medicated IV 216 201 CC - Dexmedetomidine/ 216 201 Precedex Oral 0 Tube Feeding Flush Amount 400 Output: Londono 1050 761 100 O2/Vent: 8L NC Infusions: d5w 125cc/hr, precedex .2 Medications: Albuterol (Ventolin 2.5 Mg/3 Ml Neb.My*) 2.5 mg INH Q4H PRN PRN Reason: SOB/WHEEZING Folic Acid (Folvite Tab*) 1 mg NG TUBE DAILY [facility] Last Admin: 09/19/17 08:34 Dose: 1 mg Heparin Sodium (Porcine) (Heparin Flush Picc/Ml/Cvc(*)) 1 - 3 ml FLUSH 0600, 1800 [facility]; Protocol Last Admin: 09/19/17 05:49 Dose: 1 ml Dexmedetomidine HCl 400 mcg/ (Sodium Chloride) 100 mls @ 17.15 mls/hr IVPB Q6H [facility]; Protocol Last Admin: 09/19/17 09:46 Dose: Not Given Dextrose (D5w 1000 Ml Bag*) 1,000 mls @ 100 mls/hr IV PER RATE [facility] Lansoprazole (Lansoprazole Susp Kit) 30 mg PO DAILY [facility] Last Admin: 09/19/17 08:36 Dose: 30 mg Lorazepam (Ativan Inj*) 0 - 6 mg IV PUSH .PER [facility] PROTOCOL [facility]; Protocol Last Admin: 09/16/17 19:41 Dose: 2 mg Metoprolol Tartrate (Lopressor Tab*) 25 mg NG TUBE BID [facility] Last Admin: 09/19/17 08:36 Dose: Not Given Mometasone Furoate/Formoterol Fumar (Dulera 200/5 Mdi*) 2 puff INH BID [facility] Last Admin: 09/18/17 19:08 Dose: 2 puff Multivitamins (Theragran W/Minerals Liq*) 15 ml NG TUBE DAILY [facility] Last Admin: 09/19/17 08:34 Dose: 15 ml Nystatin (Nystatin Oint*) 1 applic TOPICAL TID [facility] Last Admin: 09/19/17 01:31 Dose: Not Given Thiamine HCl (Vitamin B-1 Tab*) 100 mg NG TUBE DAILY [facility] Last Admin: 09/19/17 08:34 Dose: 100 mg Physical Exam: General: awake, alert, no distress, no diaphoresis; less confused Head: normocephalic, atraumatic HEENT: no pallor, no icterus, dry mucous membranes Neck: soft, supple, no jvd, no stridor CVS: normal/kurt rate, regular, no murmur Resp: bilateral air entry, no rhales, no wheeze, no rhonchi, no acc muscle use Abdomen: soft, nontender, nondistended, bowel sounds present Ext: pulses+, warm, no edema Skin: intact, no breakdown, no dryness Neuro: awake, alert, orientedx2-3, moving all extremities, no gross focal deficit Labs: Laboratory Results - last 24 hr 09/12/17 09/16/17 09/18/17 00:34 11:45 13:30 WBC RBC Hgb Hct MCV MCH MCHC RDW Plt Count MPV Sodium 164 H* Potassium 4.2 Chloride 123 H Carbon Dioxide 40 H Anion Gap 1 L BUN 24 Creatinine 0.86 Est GFR ( Amer) 106.4 Est GFR (Non-Af Amer) 87.9 BUN/Creatinine Ratio 27.9 H Glucose 176 H Calcium 7.7 L Ammonia Fluid Source Ascites Fluid Albumin 1460 U OH-Alprazolam GC/MS Negative U Benzodiazepine Intrp Positive. U Benzodiaz Conf Cmmnt Not Reportable U 7-Amino Clonazep GC/MS Negative Ur Nordiazepam GC/MS 253 U Flurazepam Cnf GC/MS Negative Urine Lorazepam 127 U Oxazepam Confm GC/MS 195 Ur Temazepam (GC/MS) Negative U a-Hydroxytriazolam Negative U 8-X-Cjgkfqfhqcr GC/MS Negative 09/18/17 09/18/17 09/19/17 13:30 13:30 00:15 WBC RBC Hgb Hct MCV MCH MCHC RDW Plt Count MPV Sodium 160 H* 158 H* Potassium 4.2 3.7 Chloride 121 H 120 H Carbon Dioxide 39 H 36 H Anion Gap Not Reportable 2 BUN 22 19 Creatinine 0.85 0.78 Est GFR ( Amer) 107.8 119.1 Est GFR (Non-Af Amer) 89.1 98.4 BUN/Creatinine Ratio 25.9 H 24.4 H Glucose 179 H 108 H Calcium 7.4 L 7.3 L Ammonia 44 Fluid Source Fluid Albumin U OH-Alprazolam GC/MS U Benzodiazepine Intrp U Benzodiaz Conf Cmmnt U 7-Amino Clonazep GC/MS Ur Nordiazepam GC/MS U Flurazepam Cnf GC/MS Urine Lorazepam U Oxazepam Confm GC/MS Ur Temazepam (GC/MS) U a-Hydroxytriazolam U 0-E-Typwvgghsat GC/MS 09/19/17 09/19/17 05:53 05:53 WBC 3.7 RBC 3.86 L Hgb 12.3 L Hct 39 L MCV 102 H MCH 32 H MCHC 31 RDW 19 H Plt Count 40 L MPV 9.9 Sodium 153 H Potassium 4.2 Chloride 118 H Carbon Dioxide 36 H Anion Gap Not Reportable BUN 19 Creatinine 0.74 Est GFR ( Amer) 126.5 Est GFR (Non-Af Amer) 104.6 BUN/Creatinine Ratio 25.7 H Glucose 128 H Calcium 7.3 L Ammonia Fluid Source Fluid Albumin U OH-Alprazolam GC/MS U Benzodiazepine Intrp U Benzodiaz Conf Cmmnt U 7-Amino Clonazep GC/MS Ur Nordiazepam GC/MS U Flurazepam Cnf GC/MS Urine Lorazepam U Oxazepam Confm GC/MS Ur Temazepam (GC/MS) U a-Hydroxytriazolam U 9-T-Zvyjiucljny GC/MS Imaging: cxr 09/15 - right lower lobe consolidation+ cxr 09/18 - right lower lobe consolidation+, not much change from prior Assessment 72y M pmhx active smoker, COPD on home O2, CAD, HTN, sleep apnea; admitted for hypoxia, suspected pneumonia. upgraded to ICU for delirium and hypoxia. 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 possible some sun-downing and delirium in evening. cont seroquel qPM. cont precedex, can try to wean off this morning, on low dose and calm now. seroquel may have worked last night. Ammonia levels better now, lactulose held yesterday, will start PRN. Na improving. cont thiamine/folate due to chronic alcohol use. CVS- nsr/kurt. BP upper 90s. urine output slowed now. Na improved. cont d5w infusion. cont metoprolol 25 bid Resp- off NIV; back on 8L salter. CXR stable. afebrile, no cough/sputum. completed IV abx for strept pneumonia. NIV PRN. no steroids needed, no wheezing. ID- afebrile. wbc normal. strept ag+,completed IV ceftriaxone 7 days 09/18. monitor off abx. GI- ngt in place. trial liquid/puree diet now with assistance, passed swallow eval yesterday. hold lactulose, monitor diarrhea. dec NGT free water 150 q6h. Renal- Cr okay, TERRA improved. K okay. No acidosis. urine output lower now. Suspect this may have been a post ATN diuretic phase, appears to be dumping dilute urine. discussed with nephrology yesterday. Na has corrected by 13 in 24 hours. since urine output is decreasing, can dec d5w infusiona dn free water ngt input. cont q6h checks of bmp for now. Heme- hg stable. thrombocytopenia+. no heparin sq for now. Endo- fingerstick as needed. Musculsk- oob to chair as tolerated. pressure ulcer proph.. Wounds- none Nutrition- puree/liquid diet for now DVT prophylaxis: scds GI prophylaxis: ppi Central Line: picc+ Arterial Line: no Londono Cathetor: yes Disposition: ICU Code Status: DNR/DNI Total Critical Care time is 40 minutes, excluding procedures/teaching Sj Syed MD Butadiene Compressor Operator (Electronically Signed)
[2017-09-19] MEDS: Mometasone/Formoter 200/5 MDI INH SCH ×2 (10:04→19:16)
[2017-09-19 12:07] LABS: EGFR Non-African American 109.7 (>60)
[2017-09-19] MEDS: KCL 20 MEQ/100 ML IVPREMIX* 20 MEQ/100 ML BAG IV SCH ×2 (12:51→15:41)
[2017-09-19] MEDS ORDERED: Acetaminophen ADULT LIQ* 650 MG/20.3 ML UDC PO PRN (14:57)
[2017-09-19] MEDS: QUEtiapine TAB* 25 MG PO SCH (18:44)
[2017-09-19 19:15] LABS: EGFR Non-African American 106.2 (>60)
[2017-09-20 00:36] LABS: EGFR Non-African American 99.9 (>60)
[2017-09-20] MEDS: Dexmedetomidine* 400 MCG in NS 0.9% 100 ML* 96 ML IVPB SCH ×2 (04:31→09:04)
[2017-09-20 06:27] LABS: Hematocrit 35 % (42-52); Hemoglobin 11.3 g/dl (14.0-18.0); Mean Corpuscular HGB Conc 32 g/dl (31-36); Mean Corpuscular Hemoglobin 32 pg (27-31); Mean Corpuscular Volume 99 fL (80-94); Mean Platelet Volume 10.2 um3 (7.4-10.4); Platelet Count 36 10^3/ul (150-450); Red Blood Count 3.54 10^6/ul (4.00-5.40); Red Cell Distribution Width 18 % (10.5-15); White Blood Count 5.6 10^3/ul (3.5-10.8)
[2017-09-20] MEDS: Omeprazole CAP* 20 MG PO SCH (07:17)
[2017-09-20] MEDS: Mometasone/Formoter 200/5 MDI INH SCH ×2 (07:32→19:51)
[2017-09-20] MEDS: Nystatin OINT* 15 GM TOPICAL SCH ×3 (08:50→21:18)
[2017-09-20] MEDS: Thiamine TAB* 100 MG TAB NG TUBE SCH (09:47)
[2017-09-20] MEDS: Metoprolol Tartrate TAB* 25 MG NG TUBE SCH (09:47)
[2017-09-20] MEDS: Folic Acid TAB* 1 MG NG TUBE SCH (09:47)
[2017-09-20] MEDS: Multivitamins ADULT w/MIN LIQ* 15 ML UDC NG TUBE SCH (09:47)
[2017-09-20] MEDS: QUEtiapine TAB* 25 MG PO SCH ×2 (10:23→21:17)
[2017-09-20] MEDS: Metoprolol Tartrate TAB* 25 MG PO SCH ×2 (10:23→21:19)
[2017-09-20] MEDS: Thiamine TAB* 100 MG TAB PO SCH (10:24)
[2017-09-20] MEDS: Folic Acid TAB* 1 MG PO SCH (10:24)
[2017-09-20] MEDS: Lansoprazole susp Kit 3 MG/ML (30 MG = 10 ML) PO SCH (10:24)
--- NOTE | 2017-09-20 11:50 | PN ---
Subjective Date of Service: 09/20/17 Interval History: He denies pain, cough, SOB. Poor appetite. Objective Active Medications: Acetaminophen (Tylenol Adult Liq*) 650 mg PO Q12H PRN PRN Reason: FEVER/PAIN Albuterol (Ventolin 2.5 Mg/3 Ml Neb.My*) 2.5 mg INH Q4H PRN PRN Reason: SOB/WHEEZING Folic Acid (Folvite Tab*) 1 mg PO DAILY REPLACED BY [facility] Last Admin: 09/20/17 10:24 Dose: 1 mg Heparin Sodium (Porcine) (Heparin Flush Picc/Ml/Cvc(*)) 1 - 3 ml FLUSH 0600, 1800 REPLACED BY [facility]; Protocol Last Admin: 09/20/17 06:11 Dose: 2 ml Lansoprazole (Lansoprazole Susp Kit) 30 mg PO DAILY REPLACED BY [facility] Last Admin: 09/20/17 10:24 Dose: 30 mg Metoprolol Tartrate (Lopressor Tab*) 25 mg PO BID REPLACED BY [facility] Last Admin: 09/20/17 10:23 Dose: 25 mg Mometasone Furoate/Formoterol Fumar (Dulera 200/5 Mdi*) 2 puff INH BID REPLACED BY [facility] Last Admin: 09/20/17 07:32 Dose: 2 puff Nystatin (Nystatin Oint*) 1 applic TOPICAL TID REPLACED BY [facility] Last Admin: 09/20/17 08:50 Dose: 1 applic Quetiapine Fumarate (Seroquel Tab*) 12.5 mg PO DAILY REPLACED BY [facility] Thiamine HCl (Vitamin B-1 Tab*) 100 mg PO DAILY REPLACED BY [facility] Last Admin: 09/20/17 10:24 Dose: 100 mg Vital Signs - 8 hr 09/20/17 09/20/17 09/20/17 04:41 07:31 07:37 Temperature 99.4 F Pulse Rate 89 85 85 Respiratory 16 15 20 Rate Blood Pressure 108/84 123/56 (mmHg) O2 Sat by Pulse 94 92 92 Oximetry 09/20/17 09/20/17 10:04 11:13 Temperature 100.1 F Pulse Rate 86 Respiratory 18 16 Rate Blood Pressure 115/61 (mmHg) O2 Sat by Pulse 98 Oximetry Oxygen Devices in Use Now: Nasal Cannula, High Flow Nasal Cannula Appearance: Alert, partly up in bed. In fair spirits. Looks comfortable. Eyes: No Scleral Icterus Respiratory: Symmetrical Chest Expansion and Respiratory Effort, Clear to Auscultation, Clear to Percussion Cardiovascular: NL Sounds; No Murmurs; No JVD, RRR, No Edema, - Skin: No Rash or Ulcers, No Nodules or Sclerosis, - - L forefoot somewhat redder , tender Neurological: Alert and Oriented x 3, NL Sensation Result Diagrams: 09/20/17 06:00 09/20/17 06:00 Microbiology and Other Data: Microbiology 09/16/17 11:45 Gram Stain - Final Ascites Fluid Body Fluid Culture - Final No Growth Day 4 09/12/17 17:30 Aerobic Blood Culture - Final Blood Venous No Growth Day 5 Anaerobic Blood Culture - Final No Growth Day 5 09/12/17 16:28 Aerobic Blood Culture - Final Blood Venous No Growth Day 5 Anaerobic Blood Culture - Final No Growth Day 5 09/16/17 12:10 Urine Culture - Final Urine No Growth (<1,000 CFU/mL) 09/12/17 00:34 Urine Culture - Final Urine No Growth (<1,000 CFU/mL) 09/12/17 00:34 Legionella Urinary Antigen - Final Urine Negative Legionella Antigen Streptococcus pneumoniae Ag Screen - Final Positive S. Pneumo Antigen 09/12/17 17:30 Nasal Screen MRSA (PCR) - Final Nasal Mrsa Not Detected Assess/Plan/Problems-Billing Assessment: - Patient Problems (1) Hypercapnic respiratory failure Current Visit: Yes Status: Acute Code(s): J96.92 - RESPIRATORY FAILURE, UNSPECIFIED WITH HYPERCAPNIA SNOMED Code(s): 346977046 Comment: Improved after 7 days IV ceftriaxone for presumed pneumococcal pneumonia. (Urine pneumococcal antigen pos) (2) Hypernatremia Current Visit: Yes Status: Acute Code(s): E87.0 - HYPEROSMOLALITY AND HYPERNATREMIA SNOMED Code(s): 45037229 Comment: Resolved. (3) Protein calorie malnutrition Current Visit: No Status: Suspected Priority: High Onset Date: 06/12/14 Code(s): E46 - UNSPECIFIED PROTEIN-CALORIE MALNUTRITION SNOMED Code(s): 729431598 Comment: Calorie counts x 3 requested (4) Delirium Current Visit: Yes Status: Acute Code(s): R41.0 - DISORIENTATION, UNSPECIFIED SNOMED Code(s): 6983488 Comment: Improved. Reduce scheduled quetiapine to 12.5 mg hs 7/13. Continue PRN haloperidol. (5) Cardiomyopathy Current Visit: Yes Status: Chronic Priority: Medium Code(s): I42.9 - CARDIOMYOPATHY, UNSPECIFIED SNOMED Code(s): 89805193 Comment: GLobal hypokinesis on echo 09/12/17, unable to estimate LVEF. Continue metoprolol. (6) COPD (chronic obstructive pulmonary disease) Current Visit: Yes Status: Acute Code(s): J44.9 - CHRONIC OBSTRUCTIVE PULMONARY DISEASE, UNSPECIFIED SNOMED Code(s): 61322685 Comment: Continue PRN albuterol.
--- NOTE | 2017-09-20 13:47 | PN ---
Subjective Date of Service: 09/20/17 Interval History: See earlier note today. Objective Active Medications: Acetaminophen (Tylenol Adult Liq*) 650 mg PO Q12H PRN PRN Reason: FEVER/PAIN Albuterol (Ventolin 2.5 Mg/3 Ml Neb.My*) 2.5 mg INH Q4H PRN PRN Reason: SOB/WHEEZING Folic Acid (Folvite Tab*) 1 mg PO DAILY [facility] Last Admin: 09/20/17 10:24 Dose: 1 mg Heparin Sodium (Porcine) (Heparin Flush Picc/Ml/Cvc(*)) 1 - 3 ml FLUSH 0600, 1800 [facility]; Protocol Last Admin: 09/20/17 06:11 Dose: 2 ml Metoprolol Tartrate (Lopressor Tab*) 25 mg PO BID [facility] Last Admin: 09/20/17 10:23 Dose: 25 mg Mometasone Furoate/Formoterol Fumar (Dulera 200/5 Mdi*) 2 puff INH BID [facility] Last Admin: 09/20/17 07:32 Dose: 2 puff Nystatin (Nystatin Oint*) 1 applic TOPICAL TID [facility] Last Admin: 09/20/17 08:50 Dose: 1 applic Quetiapine Fumarate (Seroquel Tab*) 12.5 mg PO DAILY [facility] Thiamine HCl (Vitamin B-1 Tab*) 100 mg PO DAILY [facility] Last Admin: 09/20/17 10:24 Dose: 100 mg Vital Signs - 8 hr 09/20/17 09/20/17 09/20/17 07:31 07:37 10:04 Temperature 99.4 F Pulse Rate 85 85 Respiratory 15 20 18 Rate Blood Pressure 123/56 (mmHg) O2 Sat by Pulse 92 92 Oximetry 09/20/17 11:13 Temperature 100.1 F Pulse Rate 86 Respiratory 16 Rate Blood Pressure 115/61 (mmHg) O2 Sat by Pulse 98 Oximetry Oxygen Devices in Use Now: Nasal Cannula, High Flow Nasal Cannula Result Diagrams: 09/20/17 06:00 09/20/17 06:00 Microbiology and Other Data: Microbiology 09/16/17 11:45 Gram Stain - Final Ascites Fluid Body Fluid Culture - Final No Growth Day 4 09/12/17 17:30 Aerobic Blood Culture - Final Blood Venous No Growth Day 5 Anaerobic Blood Culture - Final No Growth Day 5 09/12/17 16:28 Aerobic Blood Culture - Final Blood Venous No Growth Day 5 Anaerobic Blood Culture - Final No Growth Day 5 09/16/17 12:10 Urine Culture - Final Urine No Growth (<1,000 CFU/mL) 09/12/17 00:34 Urine Culture - Final Urine No Growth (<1,000 CFU/mL) 09/12/17 00:34 Legionella Urinary Antigen - Final Urine Negative Legionella Antigen Streptococcus pneumoniae Ag Screen - Final Positive S. Pneumo Antigen 09/12/17 17:30 Nasal Screen MRSA (PCR) - Final Nasal Mrsa Not Detected Assess/Plan/Problems-Billing Assessment: - Patient Problems (1) Hypercapnic respiratory failure Current Visit: Yes Status: Acute Code(s): J96.92 - RESPIRATORY FAILURE, UNSPECIFIED WITH HYPERCAPNIA SNOMED Code(s): 218694975 Comment: Improved after 7 days IV ceftriaxone for presumed pneumococcal pneumonia. (Urine pneumococcal antigen pos) (2) Hypernatremia Current Visit: Yes Status: Acute Code(s): E87.0 - HYPEROSMOLALITY AND HYPERNATREMIA SNOMED Code(s): 33008000 Comment: Resolved. (3) Protein calorie malnutrition Current Visit: No Status: Suspected Priority: High Onset Date: 06/12/14 Code(s): E46 - UNSPECIFIED PROTEIN-CALORIE MALNUTRITION SNOMED Code(s): 595728126 Comment: Calorie counts x 3 requested (4) Delirium Current Visit: Yes Status: Acute Code(s): R41.0 - DISORIENTATION, UNSPECIFIED SNOMED Code(s): 3030472 Comment: Improved. Reduce scheduled quetiapine to 12.5 mg hs 09/20. Continue PRN haloperidol. (5) Cardiomyopathy Current Visit: Yes Status: Chronic Priority: Medium Code(s): I42.9 - CARDIOMYOPATHY, UNSPECIFIED SNOMED Code(s): 75981846 Comment: GLobal hypokinesis on echo 09/12/17, unable to estimate LVEF. Continue metoprolol. (6) COPD (chronic obstructive pulmonary disease) Current Visit: Yes Status: Acute Code(s): J44.9 - CHRONIC OBSTRUCTIVE PULMONARY DISEASE, UNSPECIFIED SNOMED Code(s): 07019483 Comment: Continue PRN albuterol. (7) Cirrhosis, alcoholic Current Visit: Yes Status: Chronic Priority: Medium Code(s): K70.30 - ALCOHOLIC CIRRHOSIS OF LIVER WITHOUT ASCITES SNOMED Code(s): 346237624 Comment: Repeat ammonia level, albumin 09/21.
[2017-09-20] MEDS ORDERED: Haloperidol INJ IV/IM* 5 MG/ML AMP IV SLOW PU PRN (15:25)
[2017-09-20] MEDS ORDERED: Potassium Chloride IV* 10 MEQ in D5W 1/4 NS 1000 ML BAG* 1,000 ML IVPB SCH (17:00)
[2017-09-21] MEDS: Potassium Chloride IV* 10 MEQ in D5W 1/4 NS 1000 ML BAG* 1,000 ML IVPB SCH ×3 (04:55→17:04)
[2017-09-21 06:22] LABS: ABS Basophils 0 10^3/ul (0-0.2); ABS Eosinophils 0.1 10^3/ul (0-0.6); ABS Lymphocytes 0.3 10^3/ul (1.0-4.8); ABS Monocytes 0.4 10^3/ul (0-0.8); ABS Neutrophils 3.8 10^3/ul (1.5-7.7); ABS Nucleated RBC 0 10^3/ul; Eosinophil % 1.8 % (0-6); Hematocrit 34 % (42-52); Hemoglobin 11.1 g/dl (14.0-18.0); Lymphocyte % 6.8 % (25-47); Mean Corpuscular HGB Conc 32 g/dl (31-36); Mean Corpuscular Hemoglobin 32 pg (27-31); Mean Corpuscular Volume 98 fL (80-94); Nucleated Red Blood Cells % 0.2; Platelet Count 38 10^3/ul (150-450); Red Cell Distribution Width 19 % (10.5-15); White Blood Count 4.6 10^3/ul (3.5-10.8)
[2017-09-21 06:36] LABS: EGFR Non-African American 121.4 (>60)
[2017-09-21] MEDS: Mometasone/Formoter 200/5 MDI INH SCH ×2 (09:00→20:29)
[2017-09-21] MEDS: Metoprolol Tartrate TAB* 25 MG PO SCH ×2 (09:20→20:31)
[2017-09-21] MEDS: Thiamine TAB* 100 MG TAB PO SCH (09:20)
[2017-09-21] MEDS: QUEtiapine TAB* 25 MG PO SCH (09:20)
[2017-09-21] MEDS: Folic Acid TAB* 1 MG PO SCH (09:20)
[2017-09-21] MEDS: Nystatin OINT* 15 GM TOPICAL SCH ×3 (09:40→20:35)
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
[2017-09-22 06:24] LABS: EGFR Non-African American 117.3 (>60)
[2017-09-22] MEDS: Folic Acid TAB* 1 MG PO SCH (08:29)
[2017-09-22] MEDS: QUEtiapine TAB* 25 MG PO SCH (08:29)
[2017-09-22] MEDS: Thiamine TAB* 100 MG TAB PO SCH (08:29)
[2017-09-22] MEDS: Metoprolol Tartrate TAB* 25 MG PO SCH ×2 (08:29→21:38)
[2017-09-22] MEDS: Nystatin OINT* 15 GM TOPICAL SCH ×3 (08:32→21:40)
[2017-09-22] MEDS: Mometasone/Formoter 200/5 MDI INH SCH ×2 (08:39→20:22)
[2017-09-22] MEDS ORDERED: Torsemide TAB* 20 MG PO SCH (09:00)
[2017-09-22] MEDS: Magnesium Oxide TAB* 400 MG PO SCH (15:10)
--- NOTE | 2017-09-22 17:50 | PN ---
Subjective Date of Service: 09/22/17 Interval History: Pt pulled out his PICC line ovenight. Still on 5L. Na 143, stable/improved. Denies SOB, chest pain, fevers, chills, abdominal pain, N/V. Oriented to [place] but thinks building he is in is somewhat related to a car dealership/([facility] [place]) and that "some people" are not happy he is "here on the floor" given the bed alarm that will go off. Reported loose brown BMs. Objective Active Medications: Acetaminophen (Tylenol Adult Liq*) 650 mg PO Q12H PRN PRN Reason: FEVER/PAIN Albuterol (Ventolin 2.5 Mg/3 Ml Neb.My*) 2.5 mg INH Q4H PRN PRN Reason: SOB/WHEEZING Folic Acid (Folvite Tab*) 1 mg PO DAILY [facility] Last Admin: 09/22/17 08:29 Dose: 1 mg Magnesium Oxide (Magox 400 Tab*) 400 mg PO DAILY [facility] Last Admin: 09/22/17 15:10 Dose: 400 mg Metoprolol Tartrate (Lopressor Tab*) 25 mg PO BID [facility] Last Admin: 09/22/17 08:29 Dose: 25 mg Mometasone Furoate/Formoterol Fumar (Dulera 200/5 Mdi*) 2 puff INH BID [facility] Last Admin: 09/22/17 08:39 Dose: 2 puff Nystatin (Nystatin Oint*) 1 applic TOPICAL TID [facility] Last Admin: 09/22/17 15:11 Dose: 1 applic Quetiapine Fumarate (Seroquel Tab*) 12.5 mg PO DAILY [facility] Last Admin: 09/22/17 08:29 Dose: 12.5 mg Thiamine HCl (Vitamin B-1 Tab*) 100 mg PO DAILY [facility] Last Admin: 09/22/17 08:29 Dose: 100 mg Torsemide (Demadex*) 40 mg PO BID [facility] Vital Signs - 8 hr 09/22/17 09/22/17 11:31 15:55 Temperature 98.5 F 99.6 F Pulse Rate 70 81 Respiratory 22 22 Rate Blood Pressure 120/61 102/59 (mmHg) O2 Sat by Pulse 95 95 Oximetry Oxygen Devices in Use Now: Nasal Cannula Appearance: NAD, chronically ill appearing, calm, lying in bed. Eyes: No Scleral Icterus, PERRLA Ears/Nose/Mouth/Throat: NL Teeth, Lips, Gums Neck: NL Appearance and Movements; NL JVP Respiratory: Symmetrical Chest Expansion and Respiratory Effort, - - slight rales at bases. Cardiovascular: NL Sounds; No Murmurs; No JVD, RRR Abdominal: - - soft, nontender, distended. Extremities: - - 1+ pitting edema b/l shins. Skin: No Rash or Ulcers Neurological: - - oriented to name, year, [place] but still with some paranoid delusions. Lines/Tubes/Other Access: Clean, Dry and Intact [place] Nutrition: Taking PO's Result Diagrams: 09/21/17 06:10 09/22/17 05:56 Additional Lab and Data: Laboratory Results - last 24 hr 09/22/17 05:56 Sodium 143 Potassium 3.7 Chloride 108 Carbon Dioxide 32 Anion Gap 3 BUN 9 Creatinine 0.67 Est GFR ( Amer) 141.9 Est GFR (Non-Af Amer) 117.3 BUN/Creatinine Ratio 13.4 Glucose 109 H Calcium 8.0 L Magnesium 1.8 L Microbiology and Other Data: Microbiology 09/20/17 14:30 Urine Urine Culture - Final No Growth (<1,000 CFU/mL) 09/16/17 11:45 Ascites Fluid Gram Stain - Final 09/16/17 11:45 Ascites Fluid Body Fluid Culture - Final No Growth Day 4 09/12/17 17:30 Blood Venous Aerobic Blood Culture - Final No Growth Day 5 09/12/17 17:30 Blood Venous Anaerobic Blood Culture - Final No Growth Day 5 09/12/17 16:28 Blood Venous Aerobic Blood Culture - Final No Growth Day 5 09/12/17 16:28 Blood Venous Anaerobic Blood Culture - Final No Growth Day 5 09/16/17 12:10 Urine Urine Culture - Final No Growth (<1,000 CFU/mL) 09/12/17 00:34 Urine Urine Culture - Final No Growth (<1,000 CFU/mL) 09/12/17 00:34 Urine Legionella Urinary Antigen - Final Negative Legionella Antigen 09/12/17 00:34 Urine Streptococcus pneumoniae Ag Screen - Final Positive S. Pneumo Antigen 09/12/17 17:30 Nasal Nasal Screen MRSA (PCR) - Final Mrsa Not Detected Assess/Plan/Problems-Billing Assessment: 72 yo male PMH alcoholic cirrhosis with recent oupatient refusal of paracentesis for ascites removal, COPD, HTN, DOT, systolic CHF, pHTN presented with AMS, hypoxic respiratory failure, TERRA and treated 7 days ceftriaxone for strep pneumonia. 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 s/p diagnostic paracentesis 09/16. Afib RVR 09/12 put on heparin gtt but now off given thrombocytopenia. Encephalopathy and Na improved. Needing SNF. - Patient Problems (1) Hypercapnic respiratory failure Current Visit: Yes Status: Acute Code(s): J96.92 - RESPIRATORY FAILURE, UNSPECIFIED WITH HYPERCAPNIA SNOMED Code(s): 096275315 Comment: Improved after 7 days IV ceftriaxone for presumed pneumococcal pneumonia. (Urine pneumococcal antigen pos). Diurectics restarted given volume overload. (2) Hypernatremia Current Visit: Yes Status: Acute Code(s): E87.0 - HYPEROSMOLALITY AND HYPERNATREMIA SNOMED Code(s): 88953967 Comment: Resolved. worse 166 09/17. strict I/o daily BMPs. (3) Acute renal failure Current Visit: Yes Status: Acute Comment: resolved. (4) COPD (chronic obstructive pulmonary disease) Current Visit: Yes Status: Acute Code(s): J44.9 - CHRONIC OBSTRUCTIVE PULMONARY DISEASE, UNSPECIFIED SNOMED Code(s): 16798271 Comment: Continue PRN albuterol. (5) Delirium Current Visit: Yes Status: Acute Code(s): R41.0 - DISORIENTATION, UNSPECIFIED SNOMED Code(s): 6038116 Comment: Improved though still with some delusions. Continue quetiapine 12.5 mg qhs. Repeat EKG in AM to monitor QTc. (6) Diabetes insipidus Current Visit: Yes Status: Acute Code(s): E23.2 - DIABETES INSIPIDUS SNOMED Code(s): 06004296 Comment: suspected by Dr. Pereyra. Nephrogenic. However unclear what the underlying etiology if so. Precedex rarely can cause hypernatremia. Alternatively encephalopathy + post ATN mass diuresis-> free water deficits. Now resolved. (7) Acute on chronic systolic congestive heart failure Current Visit: No Status: Acute Priority: High Onset Date: 06/12/14 Code (s): I50.23 - ACUTE ON CHRONIC SYSTOLIC (CONGESTIVE) HEART FAILURE SNOMED Code (s): 866911464 Comment: BNP on admission was 1063, last known EF 35-40% in 2013. stopping IVF. strict io, daily weights. of note home med was torsemide 40mg po BID. Continue BB (8) Cardiomyopathy Current Visit: Yes Status: Chronic Priority: Medium Code(s): I42.9 - CARDIOMYOPATHY, UNSPECIFIED SNOMED Code(s): 95908474 Comment: GLobal hypokinesis on echo 09/12/17, unable to estimate LVEF ( previously was EF 35-40% in 2013). Continue metoprolol 25mg po BID. daily weights. strict IOs. torsemide 20mg bid restarted. remove shelton in AM. (9) Cirrhosis, alcoholic Current Visit: Yes Status: Chronic Priority: Medium Code(s): K70.30 - ALCOHOLIC CIRRHOSIS OF LIVER WITHOUT ASCITES SNOMED Code(s): 745275941 Comment: ammonia high was 91 on 09/13. s/p lactulose. on 09/21 35. continue thiamine, folic acid. home torsemide 20mg bid restarted today. low salt diet. (10) DOT (obstructive sleep apnea) Current Visit: Yes Status: Chronic Priority: Medium Code(s): G47.33 - OBSTRUCTIVE SLEEP APNEA (ADULT) (PEDIATRIC) SNOMED Code(s): 35129448 Comment: not on cpap (11) Thrombocytopenia Current Visit: Yes Status: Chronic Priority: Medium Code(s): D69.6 - THROMBOCYTOPENIA, UNSPECIFIED SNOMED Code(s): 472510970 Comment: Pt is s/p heparin gtt for Afib RVR and also with sepsis, chronic cirrhosis. (12) Hepatic encephalopathy Current Visit: No Status: Acute Priority: High Onset Date: 06/12/14 Code (s): K72.90 - HEPATIC FAILURE, UNSPECIFIED WITHOUT COMA SNOMED Code(s): 89114319 Comment: improved. 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 positive strep pneumonia urine antigen. Status and Disposition: medicine inpatient. Likely will need SNF. Continue PT.
[2017-09-22] MEDS: Torsemide TAB* 20 MG PO SCH (21:40)
[2017-09-23 06:15] LABS: ABS Basophils 0 10^3/ul (0-0.2); ABS Eosinophils 0.1 10^3/ul (0-0.6); ABS Lymphocytes 0.3 10^3/ul (1.0-4.8); ABS Monocytes 0.4 10^3/ul (0-0.8); ABS Neutrophils 4.2 10^3/ul (1.5-7.7); ABS Nucleated RBC 0 10^3/ul; Eosinophil % 1.4 % (0-6); Hematocrit 35 % (42-52); Hemoglobin 11.6 g/dl (14.0-18.0); Lymphocyte % 6.7 % (25-47); Mean Corpuscular HGB Conc 33 g/dl (31-36); Mean Corpuscular Hemoglobin 32 pg (27-31); Mean Corpuscular Volume 95 fL (80-94); Nucleated Red Blood Cells % 0; Platelet Count 47 10^3/ul (150-450); Red Blood Count 3.66 10^6/ul (4.00-5.40); Red Cell Distribution Width 17 % (10.5-15); White Blood Count 5.1 10^3/ul (3.5-10.8)
[2017-09-23 06:20] LABS: EGFR Non-African American 99.9 (>60)
[2017-09-23] MEDS ORDERED: Potassium Chlor TAB* 20 MEQ TAB.ER PO ONE (07:33)
[2017-09-23] MEDS: Metoprolol Tartrate TAB* 25 MG PO SCH ×2 (08:24→20:39)
[2017-09-23] MEDS: Thiamine TAB* 100 MG TAB PO SCH (08:24)
[2017-09-23] MEDS: Folic Acid TAB* 1 MG PO SCH (08:25)
[2017-09-23] MEDS: QUEtiapine TAB* 25 MG PO SCH (08:25)
[2017-09-23] MEDS: Magnesium Oxide TAB* 400 MG PO SCH (08:26)
[2017-09-23] MEDS: Torsemide TAB* 20 MG PO SCH ×2 (08:33→20:38)
[2017-09-23] MEDS ORDERED: Magnesium Sulfate IV* 2 GM in NS 0.9% 100 ML* 100 ML IV ONE (08:48)
--- NOTE | 2017-09-23 08:48 | PN ---
Subjective Date of Service: 09/23/17 Interval History: Patient seen and examined at bedside. Denies fever, chills, shortness of breath , chest discomfort, N/V/D. Pt states that he was on oxygen in the past after a "heart attack" but was able to be weaned off of it years ago. Pt states that he is feeling well and thinks he is going to rehab today. Pt's O2 sat noted to be 85-86% on 4L, O2 titrated to 5.5 L by RT. Family History: Unchanged from Admission Social History: Unchanged from Admission Past Medical History: Unchanged from Admission Objective Active Medications: Acetaminophen (Tylenol Adult Liq*) 650 mg PO Q12H PRN Reason: FEVER/PAIN Albuterol (Ventolin 2.5 Mg/3 Ml Neb.My*) 2.5 mg INH Q4H PRN Reason: SOB/ WHEEZING Folic Acid (Folvite Tab*) 1 mg PO DAILY [facility] Magnesium Oxide (Magox 400 Tab*) 400 mg PO DAILY [facility] Metoprolol Tartrate (Lopressor Tab*) 25 mg PO BID [facility] Mometasone Furoate/Formoterol Fumar (Dulera 200/5 Mdi*) 2 puff INH BID [facility] Nystatin (Nystatin Oint*) 1 applic TOPICAL TID [facility] Quetiapine Fumarate (Seroquel Tab*) 12.5 mg PO DAILY [facility] Thiamine HCl (Vitamin B-1 Tab*) 100 mg PO DAILY [facility] Torsemide (Demadex*) 40 mg PO BID [facility] Vital Signs - 8 hr 09/23/17 09/23/17 03:07 07:52 Temperature 99.1 F 98.3 F Pulse Rate 102 98 Respiratory 16 16 Rate Blood Pressure 121/57 122/55 (mmHg) O2 Sat by Pulse 89 91 Oximetry Oxygen Devices in Use Now: High Flow Nasal Cannula - 4 L Appearance: NAD, sitting up in a chair Ears/Nose/Mouth/Throat: Mucous Membranes Moist Respiratory: Symmetrical Chest Expansion and Respiratory Effort, Clear to Auscultation Cardiovascular: NL Sounds; No Murmurs; No JVD, RRR Abdominal: NL Sounds; No Tenderness; No Distention Extremities: - - 1+ bilateral LE edema Skin: No Rash or Ulcers Neurological: Alert and Oriented x 3, NL Muscle Strength and Tone Lines/Tubes/Other Access: Clean, Dry and Intact Peripheral IV - site benign Nutrition: Taking PO's Result Diagrams: 09/23/17 05:49 09/23/17 05:49 Additional Lab and Data: . Microbiology and Other Data: Microbiology 09/20/17 14:30 Urine Urine Culture - Final No Growth (<1,000 CFU/mL) 09/16/17 11:45 Ascites Fluid Gram Stain - Final 09/16/17 11:45 Ascites Fluid Body Fluid Culture - Final No Growth Day 4 09/12/17 17:30 Blood Venous Aerobic Blood Culture - Final No Growth Day 5 09/12/17 17:30 Blood Venous Anaerobic Blood Culture - Final No Growth Day 5 09/12/17 16:28 Blood Venous Aerobic Blood Culture - Final No Growth Day 5 09/12/17 16:28 Blood Venous Anaerobic Blood Culture - Final No Growth Day 5 09/16/17 12:10 Urine Urine Culture - Final No Growth (<1,000 CFU/mL) 09/12/17 00:34 Urine Urine Culture - Final No Growth (<1,000 CFU/mL) 09/12/17 00:34 Urine Legionella Urinary Antigen - Final Negative Legionella Antigen 09/12/17 00:34 Urine Streptococcus pneumoniae Ag Screen - Final Positive S. Pneumo Antigen 09/12/17 17:30 Nasal Nasal Screen MRSA (PCR) - Final Mrsa Not Detected Assess/Plan/Problems-Billing Assessment: 72 yo male PMH alcoholic cirrhosis with recent oupatient refusal of paracentesis for ascites removal, COPD, HTN, DOT, systolic CHF, pHTN presented with AMS, hypoxic respiratory failure, TERRA and treated 7 days ceftriaxone for strep pneumonia. 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 s/p diagnostic paracentesis 09/16. Afib RVR 09/12 put on heparin gtt but now off given thrombocytopenia. Encephalopathy and Na improved. Needing SNF. - Patient Problems (1) Acute on chronic systolic congestive heart failure Code(s): I50.23 - ACUTE ON CHRONIC SYSTOLIC (CONGESTIVE) HEART FAILURE SNOMED Code(s): 546866574 Comment: - BNP on admission was 1063 - Last known EF 35-40% in 2013 - Global hypokinesis and unable to estimate LVEF on echo 09/12/17 - Continue strict I+Os, daily weights, torsemide 40mg po BID, and BB (2) Electrolyte abnormality Code(s): E87.8 - OTH DISORDERS OF ELECTROLYTE AND FLUID BALANCE, NEC SNOMED Code(s): 210778886 Comment: - Hypokalemia. Will give replacement and recheck labs in the AM - Hypomagnesemia. Will give replacement and recheck labs in the AM (3) Hypercapnic respiratory failure Code(s): J96.92 - RESPIRATORY FAILURE, UNSPECIFIED WITH HYPERCAPNIA SNOMED Code(s): 557121315 Comment: - Improved after 7 days of IV ceftriaxone for presumed pneumococcal pneumonia ( Urine pneumococcal antigen positive) - Diurectics restarted given volume overload (4) Hypernatremia Code(s): E87.0 - HYPEROSMOLALITY AND HYPERNATREMIA SNOMED Code(s): 66110549 Comment: - Resolved - Continue strict I+Os and daily BMPs (5) Thrombocytopenia Current Visit: Yes Status: Chronic Priority: Medium Code(s): D69.6 - THROMBOCYTOPENIA, UNSPECIFIED SNOMED Code(s): 124457288 Comment: - Platelets stable - Pt is s/p heparin gtt for Afib RVR and also with sepsis and chronic cirrhosis (6) HCAP (healthcare-associated pneumonia) Code(s): J18.9 - PNEUMONIA, UNSPECIFIED ORGANISM SNOMED Code(s): 792713073 Comment: - Afebrile - Positive strep pneumonia urine antigen - Completed 7 day course ceftriaxone (7) Delirium Code(s): R41.0 - DISORIENTATION, UNSPECIFIED SNOMED Code(s): 0543090 Comment: - Improved though still with some delusions - Repeat EKG this AM, QTc 459 (was 489 on 09/13/17) - Continue quetiapine 12.5 mg qhs and supportive care (8) Diabetes insipidus Code(s): E23.2 - DIABETES INSIPIDUS SNOMED Code(s): 59635715 Comment: - Resolved - Suspected by Dr. Pereyra to be Nephrogenic (However unclear what the underlying etiology is) - Precedex rarely can cause hypernatremia - Alternatively encephalopathy + post ATN mass diuresis -> free water deficits (9) Acute renal failure Comment: - Resolved (10) Hepatic encephalopathy Code(s): K72.90 - HEPATIC FAILURE, UNSPECIFIED WITHOUT COMA SNOMED Code(s): 63961873 Comment: - Improving - Has been of lactulose for (11) COPD (chronic obstructive pulmonary disease) Code(s): J44.9 - CHRONIC OBSTRUCTIVE PULMONARY DISEASE, UNSPECIFIED SNOMED Code(s): 73263594 Comment: - No signs of acute exacerbation - Continue PRN albuterol (12) Cardiomyopathy Code(s): I42.9 - CARDIOMYOPATHY, UNSPECIFIED SNOMED Code(s): 82121671 Comment: - Global hypokinesis on echo 09/12/17, unable to estimate LVEF (previously was EF 35-40% in 2013). Continue metoprolol 25mg po BID, daily weights, strict I+Os, and torsemide 20mg bid (13) Cirrhosis, alcoholic Code(s): K70.30 - ALCOHOLIC CIRRHOSIS OF LIVER WITHOUT ASCITES SNOMED Code(s) : 738869687 Comment: - Ammonia high was 91 on 09/13 and down to 35 on 09/21 - Continue thiamine, folic acid, torsemide, and low salt diet (14) DOT (obstructive sleep apnea) Code(s): G47.33 - OBSTRUCTIVE SLEEP APNEA (ADULT) (PEDIATRIC) SNOMED Code(s): 72064825 Comment: - Not on cpap at home (15) History of anemia Code(s): Z86.2 - PRSNL HISTORY OF DIS OF THE BLD/BLD-FORM ORG/IMMUN [facility] SNOMED Code(s): 813204481 Comment: - HH at baseline - (16) DVT prophylaxis Code(s): LWX6059 - SNOMED Code(s): 572018194 Comment: - No chemical DVT prophylaxis secondary to thrombocytopenia (17) DNR (do not resuscitate) Status and Disposition: Inpatient. Discharge when medically stable, likely will need SNF.
[2017-09-23] MEDS: Mometasone/Formoter 200/5 MDI INH SCH ×2 (09:02→19:47)
[2017-09-23] MEDS: Nystatin OINT* 15 GM TOPICAL SCH ×3 (11:14→20:39)
[2017-09-24 06:41] LABS: ABS Basophils 0 10^3/ul (0-0.2); ABS Eosinophils 0.1 10^3/ul (0-0.6); ABS Lymphocytes 0.4 10^3/ul (1.0-4.8); ABS Monocytes 0.6 10^3/ul (0-0.8); ABS Nucleated RBC 0 10^3/ul; Eosinophil % 0.9 % (0-6); Hematocrit 36 % (42-52); Lymphocyte % 6.3 % (25-47); Mean Corpuscular HGB Conc 33 g/dl (31-36); Mean Corpuscular Hemoglobin 32 pg (27-31); Mean Corpuscular Volume 96 fL (80-94); Mean Platelet Volume 11.1 um3 (7.4-10.4); Nucleated Red Blood Cells % 0; Platelet Count 50 10^3/ul (150-450); Red Blood Count 3.79 10^6/ul (4.00-5.40); Red Cell Distribution Width 18 % (10.5-15); White Blood Count 6.2 10^3/ul (3.5-10.8)
[2017-09-24 06:59] LABS: EGFR Non-African American 86.8 (>60)
[2017-09-24] MEDS: Mometasone/Formoter 200/5 MDI INH SCH (08:05)
[2017-09-24] MEDS: QUEtiapine TAB* 25 MG PO SCH (09:13)
[2017-09-24] MEDS: Thiamine TAB* 100 MG TAB PO SCH (09:14)
[2017-09-24] MEDS: Magnesium Oxide TAB* 400 MG PO SCH (09:14)
[2017-09-24] MEDS: Metoprolol Tartrate TAB* 25 MG PO SCH (09:14)
[2017-09-24] MEDS: Torsemide TAB* 20 MG PO SCH (09:14)
[2017-09-24] MEDS: Folic Acid TAB* 1 MG PO SCH (09:15)
[2017-09-24] MEDS: Nystatin OINT* 15 GM TOPICAL SCH (09:15)
[2017-09-24 11:53] VITALS: BP 99/49
--- NOTE | 2017-09-24 13:21 | PN ---
Progress Note - Progress Note Date of Service: 09/24/17 Note: Time spent on discharge, including review of EMR, exam of patient and discussion with patient, discussion with nursing staff and home care scheduler, preparation of discharge documents and summary 45 minutes.
--- NOTE | 2017-09-24 14:20 | TRS ---
CC: Dr. Pablo TRANSFER SUMMARY: DATE OF TRANSFER: 09/24/17 HISTORY OF PRESENT ILLNESS: This 72-year-old man presented with a chief complaint of malaise and he was also noted to be hypoxic. In the emergency room, he was diagnosed as having pneumonia. Chest x- ray showed a left-sided pleural effusion and mild interstitial edema. He was also thought to be deli rious. He was noted to have chronic obstructive lung disease, history of pulmonary hypertension, his tory of ascites and possible alcoholic cirrhosis. He was given various medications to treat his delirium. At the end, he was being treated with quetia pine. The dose was decreased. He seemed to be quite stable and cooperative, although not able to ca re for himself. He had a paracentesis and the cytology was negative for malignant cells. He was lisa madelin for hypokalemia, hypomagnesemia. He had hyponatremia related to possible nephrogenic diabetes in sipidus, which resolved. He was treated with lactulose for a period of time for hepatic encephalopat hy, but this appeared to resolve as well and he no longer required lactulose. His last ammonia level was 35 on 09/20/17. Echocardiogram showed global hypokinesis, but that was unable to estimate numer ical ejection fraction. Previous ejection fraction was 35% to 40% in 2014. He was treated with oral torsemide. FINAL DIAGNOSES: 1. Delirium. 2. Acute on chronic congestive heart failure. 3. Multiple electrolyte abnormalities. 4. Thrombocytopenia. 5. Possible alcoholic cirrhosis with encephalopathy. 6. Obstructive sleep apnea by history. 7. Chronic anemia. DISCHARGE MEDICATIONS: 1. Albuterol 2.5 mg by nebulizer every 4 hours p.r.n. 2. Folic acid 1 mg daily. 3. Magnesium oxide 400 mg b.i.d. 4. Metoprolol tartrate 25 mg b.i.d. 5. Mometasone furoate 200/5 two puffs b.i.d. 6. Nystatin ointment to affected areas t.i.d. 7. Potassium chloride 20 mEq daily. 8. Quetiapine 12.5 mg daily. 9. Thiamine 100 mg daily. 10. Torsemide 40 mg b.i.d. 11. Aspirin 650 mg every 6 hours p.r.n. I recommend the patient have a basic metabolic profile and magnesium level on 09/27/17. [id number]/[facility] #: [id number]
[2017-09-24] MEDS ORDERED: Magnesium Oxide TAB* 400 MG PO SCH (21:00)
[2017-09-25] MEDS ORDERED: Torsemide TAB* 20 MG PO SCH (09:00)
[2017-09-25] MEDS ORDERED: Potassium Chlor TAB* 10 MEQ TAB.ER PO SCH (09:00)
== END 2017-09-24 15:20 | DRG 871 ==
LOC: ED 13:03 → ICU 16:08 → MED 09-19 22:35
PROVIDERS: ADMIT Internal Medicine; ATTEND Internal Medicine
PROC: 0W9G3ZZ Drainage of Peritoneal Cavity, Percutaneous Approach (ICD-10-PCS; principal; 2017-09-16)
PROC: 5A09457 Assistance with Respiratory Ventilation, 24-96 Consecutive Hours, Continuous Positive Airway Pressure (ICD-10-PCS; 2017-09-23)
PROC: 02HV33Z Insertion of Infusion Device into Superior Vena Cava, Percutaneous Approach (ICD-10-PCS; 2017-09-23)
PROC: 0DH67UZ Insertion of Feeding Device into Stomach, Via Natural or Artificial Opening (ICD-10-PCS; 2017-09-23)
PROC: 0T9B70Z Drainage of Bladder with Drainage Device, Via Natural or Artificial Opening (ICD-10-PCS; 2017-09-23)
PROC: 02HV33Z Insertion of Infusion Device into Superior Vena Cava, Percutaneous Approach (ICD-10-PCS; 2017-09-23)
DX: A41.9 Sepsis, unspecified organism (principal); J13 Pneumonia due to Streptococcus pneumoniae; J96.21 Acute and chronic respiratory failure with hypoxia; G93.41 Metabolic encephalopathy; I50.23 Acute on chronic systolic (congestive) heart failure; J96.22 Acute and chronic respiratory failure with hypercapnia; J44.0 Chronic obstructive pulmonary disease with (acute) lower respiratory infection; N17.9 Acute kidney failure, unspecified; N25.1 Nephrogenic diabetes insipidus; E87.0 Hyperosmolality and hypernatremia; I47.1 Supraventricular tachycardia; E72.20 Disorder of urea cycle metabolism, unspecified; N39.0 Urinary tract infection, site not specified; I42.9 Cardiomyopathy, unspecified; J44.1 Chronic obstructive pulmonary disease with (acute) exacerbation; E46 Unspecified protein-calorie malnutrition; I27.20 Pulmonary hypertension, unspecified; E66.9 Obesity, unspecified; Z68.30 Body mass index [BMI] 30.0-30.9, adult; I25.10 Atherosclerotic heart disease of native coronary artery without angina pectoris; G47.33 Obstructive sleep apnea (adult) (pediatric); K21.9 Gastro-esophageal reflux disease without esophagitis; I11.0 Hypertensive heart disease with heart failure; F32.9 Major depressive disorder, single episode, unspecified; F41.9 Anxiety disorder, unspecified; F17.210 Nicotine dependence, cigarettes, uncomplicated; I48.0 Paroxysmal atrial fibrillation; I44.4 Left anterior fascicular block; G62.9 Polyneuropathy, unspecified; D69.6 Thrombocytopenia, unspecified; F10.20 Alcohol dependence, uncomplicated; R73.9 Hyperglycemia, unspecified; I95.9 Hypotension, unspecified; D50.9 Iron deficiency anemia, unspecified; K70.31 Alcoholic cirrhosis of liver with ascites; R41.0 Disorientation, unspecified; Z66 Do not resuscitate; E87.6 Hypokalemia; E83.42 Hypomagnesemia; Z79.82 Long term (current) use of aspirin; Z85.828 Personal history of other malignant neoplasm of skin; Z82.49 Family history of ischemic heart disease and other diseases of the circulatory system; Z79.51 Long term (current) use of inhaled steroids
CPT/HCPCS: 36415; 36600; 70450; 71045; 80048; 80053; 80076; 80307; 80320; 80346; 80364; 81003; 81015; 82040; 82042; 82140; 82150; 82330; 82436; 82550; 82565; 82570; 82803; 83605; 83735; 83880; 83930; 83935; 83986; 84133; 84145; 84300; 84443; 84478; 84484; 84520; 84540; 84588; 85025; 85027; 85610; 85730; 87040; 87070; 87086; 87205; 87641; 87899; 88112; 89051; 93005; 93306; 93970; 94640; 94660; 99285; A9270-GY; C1751; G0480; G8978-GP-CJ; G8978-GP-CL; G8978-GP-CM; G8979-GP-CI; G8979-GP-CJ; G8987-GO-CK; G8988-GO-CI; J0456; J0696; J1630; J1644; J2060; J2270; J2597; J2920; J2930; J3411; J3475; J3480; J3490

== ENCOUNTER 2018-02-13 17:12 | Inpatient (IN) | payer MEDICARE ==
[2018-02-13] MEDS ORDERED: NS 0.9% 1000 ML* 1,000 ML IV ONE (18:02)
[2018-02-13 18:12] LABS: Hematocrit 16 % (42-52); Hemoglobin 4.7 g/dl (14.0-18.0); Mean Corpuscular HGB Conc 29 g/dl (31-36); Mean Corpuscular Hemoglobin 22 pg (27-31); Mean Corpuscular Volume 76 fL (80-94); Mean Platelet Volume 9.2 fL (7.4-10.4); Platelet Count 109 10^3/ul (150-450); Red Blood Count 2.13 10^6/ul (4.00-5.40); Red Cell Distribution Width 20 % (10.5-15); White Blood Count 4.2 10^3/ul (3.5-10.8)
[2018-02-13 18:15] LABS: ABS Basophils 0.1 10^3/ul (0-0.2); ABS Eosinophils 0 10^3/ul (0-0.6); ABS Lymphocytes 0.3 10^3/ul (1.0-4.8); ABS Monocytes 0.5 10^3/ul (0-0.8); ABS Neutrophils 3.3 10^3/ul (1.5-7.7); ABS Nucleated RBC 0 10^3/ul; Eosinophil % 0.9 %; Lymphocyte % 6.7 %; Nucleated Red Blood Cells % 0.5
[2018-02-13 18:23] LABS: INR 0.98 (0.77-1.02)
[2018-02-13 18:26] LABS: EGFR Non-African American 53.2 (>60)
--- NOTE | 2018-02-13 18:27 | ED ---
GI/ HPI - HPI Summary HPI Summary: Pt is a 72 y/o male who presents to the ED c/o dark stool. 2 days ago he got blood work done to check his ammonia levels for his alcoholic liver cirrhosis. He was sent here by his PCP because of his low hemoglobin level of 4.5. Pt has chronic anemia. He notes fatigue, intermittent left-sided abdominal pain, and darker stool. Pt denies any rectal bleeding, palpitations, or SOB. He is on 3 L O2 NC at home. His O2 sat is between 84 and 93 off oxygen, and 99 on oxygen. He recently had an EKG done which was normal. Pt is now sober. - History of Current Complaint Chief Complaint: EDGeneral Time Seen by Provider: 02/13/18 17:31 Stated Complaint: BLOODWORK Hx Obtained From: Patient Onset/Duration: Started Days Ago - 2, Still Present Timing: Intermittent Pain Intensity: 0 Location of Pain: Other - Left-sided abdomen Associated Signs and Symptoms: Positive: Abdominal Pain Aggravating Factor(s): Nothing Alleviating Factor(s): Nothing - Additional Pertinent History Primary Care Physician: RAFAEL - Allergy/Home Medications Allergies/Adverse Reactions: Allergies Allergy/AdvReac Type Severity Reaction Status Date / Time No Known Allergies Allergy Verified 09/22/14 07:45 Home Medications: Home Medications Betamethasone Dip 0.05% ON(NF) [Betamethasone Dipr 0.05% OINT(NF)] 1 applic TOPICAL BID PRN 02/13/18 [History Confirmed 02/13/18] Gabapentin CAP(*) [Neurontin 400 mg CAP(*)] 800 mg PO QID PRN 02/13/18 [History Confirmed 02/13/18] Magnesium Oxide TAB* [MagOx 400 TAB*] 400 mg PO DAILY 02/13/18 [History Confirmed 02/13/18] Metoprolol Succinate XL TAB* [Toprol XL TAB*] 25 mg PO BID 02/13/18 [History Confirmed 02/13/18] Multivitamins/Minerals TAB* [Theragran/minerals TAB*] 1 tab PO DAILY 02/13/18 [ History Confirmed 02/13/18] Spironolactone (NF) [Spironolactone 50 MG (NF)] 50 mg PO BID 02/13/18 [History Confirmed 02/13/18] chlordiazePOXIDE CAP* [Librium CAP*] 10 mg PO TID 02/13/18 [History Confirmed ] PMH/Surg Hx/FS Hx/Imm Hx Endocrine/Hematology History: Reports: Hx Anemia Denies: Hx Diabetes, Hx Thyroid Disease Cardiovascular History: Reports: Hx Congestive Heart Failure - ACUTE, Hx Coronary Artery Disease, Hx Hypertension, Hx Rheumatic Fever - x2 during childhood Comment Only: Other Cardiovascular Problems/Disorders - paroxysmal atrial tach Respiratory History: Reports: Hx Asthma, Hx Chronic Obstructive Pulmonary Disease (COPD) - pt reports not on home O2 [employer], Hx Pneumonia, Hx Pulmonary Edema , Hx Sleep Apnea, Other Respiratory Problems/Disorders - pulmonary HTN GI History: Reports: Hx Cirrhosis, Hx Gastroesophageal Reflux Disease Denies: Hx Ulcer History: Denies: Hx Renal Disease Musculoskeletal History: Reports: Hx Orthopedic Injury - left tib fib fx, Other Musculoskeletal History - reports de-conditioning, generalized weakness: uses cane/walker Sensory History: Reports: Hx Contacts or Glasses Denies: Hx Hearing Aid Opthamlomology History: Reports: Hx Contacts or Glasses Psychiatric History: Reports: Hx Anxiety, Hx Depression - Surgical History Surgery Procedure, Year, and Place: Bilateral broken collar bones, rotator cuffs bilaterally, shoulder repair bilaterally, broken upper arms bilaterally, fx hand on left, knee cap damage. Umbilical hernia repair. - Immunization History Date of Influenza Vaccine: 08/2017 Immunizations Up to Date: Yes Infectious Disease History: No Infectious Disease History: Denies: Hx Hepatitis, Hx Human Immunodeficiency Virus (HIV), Traveled Outside the [place] in Last 30 Days - Family History Known Family History: Negative: Hypertension, Diabetes - Social History Alcohol Use: None Alcohol Amount: former alcoholic Hx Substance Use: No Substance Use Type: Reports: None Hx Tobacco Use: Yes Smoking Status (MU): Heavy Every Day Tobacco Smoker Type: Cigarettes Have You Smoked in the Last Year: Yes Review of Systems Positive: Fatigue Negative: Palpitations Negative: Shortness Of Breath Positive: Abdominal Pain, Other - dark stool, NEGATIVE: rectal bleeding All Other Systems Reviewed And Are Negative: Yes Physical Exam - Summary Physical Exam Summary: VITAL SIGNS: Reviewed. GENERAL: Patient is a well-developed and nourished MALE who is lying comfortable in the stretcher. Patient is not in any acute respiratory distress. HEAD AND FACE: No signs of trauma. No ecchymosis, hematomas or skull depressions. No sinus tenderness. EYES: PERRLA, EOMI x 2, No injected conjunctiva, no nystagmus. EARS: Hearing grossly intact. Ear canals and tympanic membranes are within normal limits. MOUTH: Oropharynx within normal limits. NECK: Supple, trachea is midline, no adenopathy, no JVD, no carotid bruit, no c- spine tenderness, neck with full ROM. CHEST: Symmetric, no tenderness at palpation LUNGS: Clear to auscultation bilaterally. No wheezing or crackles. On 3 L O2 NC. CVS: Regular rate and rhythm, S1 and S2 present, no murmurs or gallops appreciated. ABDOMEN: Soft, non-tender. No rebound no guarding, and no masses palpated. Bowel sounds are normal. Distended. EXTREMITIES: FROM in all major joints, no edema, no cyanosis or clubbing. NEURO: Alert and oriented x 3. No acute neurological deficits. Speech is normal and follows commands. SKIN: Dry and warm. Pale. RECTAL: No hemorrhoids, normal sphincter tone, no melena or gross blood Triage Information Reviewed: Yes Vital Signs On Initial Exam: Initial Vitals Temp Pulse Resp BP Pulse Ox 98.3 F 77 24 105/48 100 02/13/18 17:20 02/13/18 17:20 02/13/18 17:20 02/13/18 17:20 02/13/18 17:20 Vital Signs Reviewed: Yes Diagnostics - Vital Signs Vital Signs Temp Pulse Resp BP Pulse Ox 02/13/18 17:20 98.3 F 77 24 105/48 100 - Laboratory Lab Results: Lab Results 02/13/18 02/13/18 02/13/18 Range/Units 17:53 17:53 17:53 WBC 4.2 (3.5-10.8) 10^3/ul RBC 2.13 L (4.00-5.40) 10^6/ul Hgb 4.7 L* (14.0-18.0) g/dl Hct 16 L (42-52) % MCV 76 L (80-94) fL MCH 22 L (27-31) pg MCHC 29 L (31-36) g/dl RDW 20 H (10.5-15) % Plt Count 109 L (150-450) 10^3/ul MPV 9.2 (7.4-10.4) fL Neut % (Auto) 78.4 % Lymph % (Auto) 6.7 % [place] % (Auto) 12.7 % Eos % (Auto) 0.9 % Baso % (Auto) 1.3 % Absolute Neuts (auto) 3.3 (1.5-7.7) 10^3/ul Absolute Lymphs (auto) 0.3 L (1.0-4.8) 10^3/ul Absolute Monos (auto) 0.5 (0-0.8) 10^3/ul Absolute Eos (auto) 0 (0-0.6) 10^3/ul Absolute Basos (auto) 0.1 (0-0.2) 10^3/ul Absolute Nucleated RBC 0 10^3/ul Nucleated RBC % 0.5 INR (Anticoag Therapy) 0.98 (0.77-1.02) APTT 29.7 (26.0-36.3) seconds Blood Type A Negative Antibody Screen Pending Crossmatch See Detail Result Diagrams: 02/13/18 17:53 02/13/18 17:53 Lab Statement: Any lab studies that have been ordered have been reviewed, and results considered in the medical decision making process. - Radiology CXR Radiology Interpretation Completed By: ED Physician Summary of Radiographic Findings: Cardiomegaly. Pending official radiology report. - EKG 17:48 Cardiac Rate: NL - 99 bpm EKG Rhythm: Sinus Rhythm - mixed with ectopic atrial rhythm ST Segment: Normal EKG Comparison: No Significant Change - similar to 09/23/17 [facility] Course/Dx - Course Assessment/Plan: Pt is a 72 y/o male who presents to the ED c/o dark stool. 2 days ago he got blood work done to check his ammonia levels for his alcoholic liver cirrhosis. He was sent here by his PCP because of his low hemoglobin level of 4.5. Pt has chronic anemia. He notes fatigue, intermittent left-sided abdominal pain, and darker stool. Pt denies any rectal bleeding, palpitations , or SOB. He is on 3 L O2 NC at home. His O2 sat is between 84 and 93 off oxygen , and 99 on oxygen. He recently had an EKG done which was normal. Pt is now sober. Blood work without any significant abnormality except for hemoglobin 4.7 and hematocrit 16. Creatinine is 1.33, glucose 118, and total protein of 6.2. In the ED course the patient was given IV fluids, we obtained 2 large pore IV accesses, and I ordered 2 units of packed red blood cells and IV protonix. I discussed the case with Dr. Moyer from GI and he will consult for this patient. I also discussed the case with Dr. Fuller from the hospitalist services who accepted the patient for admission. At this point the patient is hemodynamically stable, alert and oriented 3. - Diagnoses Provider Diagnoses: GI bleed - Physician Notifications Discussed Care Of Patient With: Chase Moyer Time Discussed With Above Provider: 18:28 Instructed by Provider To: Other - Dr. Moeyr will see pt in ED. At 18:30 Dr. Fuller accepts pt for admission. - Critical Care Time Critical Care Time: 75-104 min Discharge - Sign-Out/Discharge Documenting (check all that apply): Patient Departure - Admit - Discharge Plan Condition: Stable Disposition: ADMITTED TO [facility] Referrals: Tawanda Pablo MD [Primary Care Provider] - - Billing Disposition and Condition Condition: STABLE Disposition: Admitted to [facility] - Attestation Statements Document Initiated by Scribe: Yes Documenting Scribe: Kathleen Lamas Provider For Whom Scribe is Documenting (Include Credential): Chris Conde MD Scribe Attestation: Kathleen Boyd, [email or web address] for Chris Conde MD on 02/13/18 at 2059. Scribe Documentation Reviewed: Yes Provider Attestation: The documentation as recorded by the Kathleen grey accurately reflects the service I personally performed and the decisions made by me, Chris Conde MD Status of Scribe Document: Viewed
[2018-02-13] MEDS ORDERED: Pantoprazole IV* 40 MG IV ONE (20:55)
[2018-02-13] MEDS ORDERED: Clobetasol 0.05% OINT* 30 GM TUBE TOPICAL PRN (22:17)
[2018-02-13] MEDS ORDERED: PROCHLORPERAZINE INJ 5 MG/ML 2 ML VIAL IV PRN (22:20)
[2018-02-13] MEDS ORDERED: Morphine VIAL* 4 MG/ML VIAL (1 ml vial) IV PRN (22:20)
[2018-02-13] MEDS ORDERED: Nicotine Inhaler* 10 MG AMP INH PRN (22:50)
[2018-02-13] MEDS ORDERED: Mouth Piece, Nicotine* 1 EACH CARTRIDGE INH ONE (23:00)
[2018-02-13] MEDS ORDERED: NS 0.9% 1000 ML* 1,000 ML IV SCH (23:00)
[2018-02-13] MEDS ORDERED: cefTRIAXone(*) 1 GM in NS 0.9% 50 ML* 50 ML IVPB SCH (23:00)
[2018-02-13] MEDS: Gabapentin CAP(*) 400 MG PO PRN (23:50)
[2018-02-13] MEDS: Pantoprazole* 80 mg IN NS 80 MG/250 ML BAG IVPB SCH (23:51)
--- NOTE | 2018-02-14 00:54 | HP ---
CC: Dr. Pablo; Dr. Moyer * HISTORY AND PHYSICAL: DATE OF ADMISSION: 02/13/18 TIME OF EVALUATION: 9:10 p.m. PRIMARY CARE PROVIDER: Dr. Pablo. CONSULTING FORE[employer] LANGUAGES PROFESSOR: Dr. Moyer. CHIEF COMPLAINT: "They told me to come here." HISTORY OF PRESENT ILLNESS: Mr. Medina is a 72-year-old male with a past medical history of liver cirrhosis with ascites, congestive heart failure, hepatic encephalopathy, obstructive sleep apnea, COPD, pulmonary hypertension, coronary artery disease, who presented to the emergency room after being referred by his primary care provider due to significant anemia. Please note the history is difficult to obtain from the patient because many questions he will answer with "look at my chart, all the information is there," so the history I am going to describe below is a combination of records from chart and limited answer from the patient. He states that he has had back pain for months and he is taking aspirin 650 mg 3 to 4 times a day. He developed epigastric pain that he is unable to describe the nature or give me some numerical grade and the pain is generally relieved by eating. He denies nausea, vomiting. No change in his stools. Denies any signs of bleeding. He states that he went to see his primary care provider for a routine appointment and was told have blood test to check his ammonia level. He was called and told to come to the emergency room because he was very anemic. He denies chest pain, palpitations, shortness of breath, but he is not very active due to his other comorbidities. He is supposed to be on oxygen, but he states that he uses 1.5 to 2 L depending on how he is feeling. In the emergency room, he was found to have a hemoglobin of 4.7. His stool was positive for occult blood and the hospitalist service was called for evaluation. PAST MEDICAL HISTORY: 1. COPD. 2. Pulmonary hypertension. 3. Neuropathy. 4. Liver cirrhosis. 5. The patient states that he never had an upper endoscopy and the last residence director he saw was Dr. Leach. 6. Ascites. 7. Atrial tachycardia. 8. Coronary artery disease. 9. Obstructive sleep apnea. 10. Hypertension. 11. Thrombocytopenia. 12. Depression. 13. Anxiety. 14. Tobacco abuse. 15. Systolic CHF with last ejection fraction 35%; but on his last echo in September 2017, they were unable to estimate overall EF. There was global hypokinesis. 16. GERD. 17. Basal cell carcinoma. 18. Hepatic encephalopathy. PAST SURGICAL HISTORY: 1. History of rotator cuff repair. 2. Cardiac cath with nonobstructive coronary artery disease. 3. Status post basal cell carcinoma resection. MEDICATIONS: 1. Aspirin 650 mg p.o. q.6 hours p.r.n. 2. Betamethasone ointment topical b.i.d. as needed for itching. 3. Librium 10 mg p.o. t.i.d. 4. Gabapentin 800 mg p.o. 4 times a day as needed for pain. 5. Magnesium oxide 400 mg p.o. daily. 6. Metoprolol succinate 25 mg p.o. b.i.d. 7. Multivitamins 1 tablet p.o. daily. 8. Potassium chloride 20 mg p.o. daily. 9. Spironolactone 50 mg p.o. b.i.d. 10. Torsemide 40 mg p.o. daily. ALLERGIES: No known drug allergies. FAMILY HISTORY: As per records, his mother of pneumonia, father had an CO. SOCIAL HISTORY: The patient says that he used to smoke 2 packs a day, but now he is down to 6 cigarettes a day. As per records, the patient was still drinking on his last admission in September. When I asked the patient what he used to drink, he said beer and when I asked when was the last time he had a drink, he said "check the records. I hate when you people do this because you want to prove I am lying." Surrogate decision maker is Foreign Bermudez, phone number is [phone] (this is his power of finance attorney). REVIEW OF SYSTEMS: A 14-point review of systems was performed, and all the pertinent negative and positive findings are in the HPI. PHYSICAL EXAMINATION GENERAL: The patient is an elderly gentleman, he appears older than stated age , lying in the ED stretcher, in no acute distress. VITAL SIGNS: Temperature 98.3, heart rate is 78, respiratory rate is 18, oxygen saturation is 94% on room air, blood pressure is 93/52. HEENT: Pupils are equal. There is no scleral icterus. CHEST: Breath sounds bilaterally with no added sounds, decreased in bases. CVS: Normal S1, S2. Regular rate and rhythm. ABDOMEN: Distended with ascites, nontender. Bowel sounds are present. EXTREMITIES: Trace to mild bilateral lower extremity edema. NEUROLOGIC: He is alert, awake and oriented x3. Able to move all 4 extremities. LABORATORY AND IMAGING DATA: The patient had a CBC that showed a WBC of 4.2, hemoglobin of 4.7, hematocrit 16, MCV of 76, MCH of 22 with an RDW of 20, platelets of 109 with 78% neutrophils. Coagulation showed an INR of 0.98. Chemistry showed sodium of 137, potassium 3.7, chloride of 99, bicarb of 32, BUN of 20, creatinine of 1.33, glucose 118, calcium 8.8. LFTs are normal with an albumin of 3.4. EKG done 02/13/18 6 at 05:48 p.m. showed ectopic atrial rhythm at 99 beats per minute. No significant change when compared to his prior EKG from September 2017. This time, his QTc is slightly prolongated at 484. It was 459 on his last visit. Chest x-ray to my read shows no acute pulmonary disease, but the right costophrenic angle was cut from the exam. Stool for occult blood was positive. ASSESSMENT AND PLAN: Mr. Basurto is a 72-year-old male with a complex medical history that includes chronic obstructive pulmonary disease, pulmonary hypertension, neuropathy, liver cirrhosis, atrial tachycardia, coronary artery disease, congestive heart failure, thrombocytopenia, tobacco abuse and admission to [facility] in September with delirium, acute congestive heart failure exacerbation, who presented to the emergency room, referred to his PCP due to low hemoglobin. 1. Severe anemia. I believe this is secondary to GI loss in the setting of aspirin use. This appears to be chronic as his hemoglobin was 10.4 in October and is now down to 4.7, but he does not seem to have many symptoms related to it. His MCV is reduced as well as his MCH and RDW is elevated. Anemia workup will be sent. Two PRBCs were already ordered in the emergency room. He will receive 2 PRBCs. We are going to monitor his H and H and continuing to transfuse to a goal hemoglobin around 8. 2. Probable upper GI bleed. From the patient's history, I suspect he likely has a peptic ulcer disease associated with his continued aspirin use for back pain, especially considering his epigastric pain relieved by food. Although, he has a history of liver cirrhosis, I do not think this is a variceal bleeding and I discussed these findings with residence director on-call (Dr. Moyer) and he agrees. He does not think an octreotide drip is indicated at this time. At this point, the patient's vital signs are stable. He will be continued on a pantoprazole drip and he received gentle IV hydration and we will monitor his H and H. He will have a clear liquid diet for now and he will be n.p.o. after midnight for upper endoscopy in the morning. 3. Liver cirrhosis. He appears to be compensated at this time, but he does have ascites. I am going to hold his diuretics for now, but as he reaches the goal hemoglobin of 8, I believe his diuretic should be resumed. He has no pain on abdominal palpation at this time, but with the ascites and this possible GI bleed, he is at risk of spontaneous bacterial peritonitis, so I am going to start ceftriaxone 1 g IV daily for SBP prophylaxis and further workup including paracentesis will depend on Gastroenterology opinion. 4. Chronic obstructive pulmonary disease. The patient is still a smoker. He will have nicotine supplementation and we will continue supplemental oxygen as well. He does not appear to be on any other medications for chronic obstructive pulmonary disease as outpatient. 5. Coronary artery disease/congestive heart failure. Appears to be compensated at this time. We will continue his metoprolol. 6. DVT prophylaxis. The patient has a score of 4 on a DVT Prophylaxis Risk Assessment Guide and pharmacological prophylaxis is contraindicated in the setting of possible gastrointestinal bleed, so he will have SCDs while in bed. Keep in mind that we have to monitor his respiratory status due to his history of congestive heart failure. 7. Code status is full. TIME SPENT: Approximately 60 minutes were spent with patient interview, medical records review, physical examination to complete this admission, more than half of this time was spent [id number] with the patient in coordination of care. [id number]/[facility] #: [id number] EDA
[2018-02-14 02:27] LABS: Hematocrit 19 % (42-52); Hemoglobin 5.7 g/dl (14.0-18.0)
[2018-02-14] MEDS ORDERED: Furosemide IV* 10 MG/ML 2 ML VIAL (20 MG) IV SLOW PU ONE (05:05)
[2018-02-14] MEDS ORDERED: Albuterol 2.5 MG/3 ML NEB.SOL* (0.083%) INH PRN (05:05)
[2018-02-14] MEDS: chlordiazePOXIDE CAP* 10 MG PO SCH ×3 (10:00→20:32)
[2018-02-14] MEDS: Metoprolol Succinate XL TAB* 25 MG PO SCH ×2 (10:28→20:32)
[2018-02-14] MEDS: Pantoprazole* 80 mg IN NS 80 MG/250 ML BAG IVPB SCH (10:29)
[2018-02-14] MEDS ORDERED: fentaNYL* 50 MCG/ML 2 ML VIAL (100 MCG VIAL) ONE (13:24)
[2018-02-14] MEDS ORDERED: Midazolam* 1 MG/ML 10 ML VIAL (10 MG) ONE (13:24)
[2018-02-14 14:49] LABS: ABS Basophils 0 10^3/ul (0-0.2); ABS Eosinophils 0.1 10^3/ul (0-0.6); ABS Lymphocytes 0.4 10^3/ul (1.0-4.8); ABS Monocytes 0.4 10^3/ul (0-0.8); ABS Neutrophils 2.9 10^3/ul (1.5-7.7); ABS Nucleated RBC 0 10^3/ul; Eosinophil % 3.1 %; Hematocrit 26 % (42-52); Hemoglobin 7.8 g/dl (14.0-18.0); Lymphocyte % 11.5 %; Mean Corpuscular HGB Conc 31 g/dl (31-36); Mean Corpuscular Hemoglobin 24 pg (27-31); Mean Corpuscular Volume 79 fL (80-94); Mean Platelet Volume 8.2 fL (7.4-10.4); Nucleated Red Blood Cells % 0.3; Platelet Count 103 10^3/ul (150-450); Red Blood Count 3.22 10^6/ul (4.00-5.40); Red Cell Distribution Width 19 % (10.5-15); White Blood Count 3.8 10^3/ul (3.5-10.8)
[2018-02-14 15:05] LABS: EGFR Non-African American 61.6 (>60)
--- NOTE | 2018-02-14 15:33 | PN ---
Subjective Date of Service: 02/14/18 Interval History: Pt feels well. C/o occasional upper thoracic back pain that usually occurs when he sits up and reads for "too long". Pt is not interested in PT, stated that he is 72 yo and " a little bit of narcotic can't harm him". He agrees to try tramadol prn. Objective Active Medications: Albuterol (Ventolin 2.5 Mg/3 Ml Neb.My*) 2.5 mg INH Q2H PRN PRN Reason: SOB/WHEEZING Last Admin: 02/14/18 05:19 Dose: 2.5 mg Chlordiazepoxide (Librium Cap*) 10 mg PO TID [facility] Last Admin: 02/14/18 14:50 Dose: 10 mg Clobetasol Propionate (Clobetasol 0.05% Oint*) 1 applic TOPICAL BID PRN PRN Reason: ITCHING Gabapentin (Neurontin Cap(*)) 800 mg PO QID PRN PRN Reason: PAIN Last Admin: 02/13/18 23:50 Dose: 800 mg Ceftriaxone Sodium 1 gm/ (Sodium Chloride) 50 mls @ 200 mls/hr IVPB Q24H [facility] Last Admin: 02/13/18 23:51 Dose: 200 mls/hr Magnesium Oxide (Magox 400 Tab*) 400 mg PO DAILY [facility] Metoprolol Succinate (Toprol Xl Tab*) 25 mg PO BID [facility] Last Admin: 02/14/18 10:28 Dose: Not Given Morphine Sulfate (Morphine Vial*) 1 mg IV Q1H PRN PRN Reason: SEVERE PAIN Nicotine (Nicotine Inhaler*) 10 mg INH Q2H PRN PRN Reason: CRAVING Last Admin: 02/13/18 23:51 Dose: 10 mg Omeprazole (Prilosec Cap*) 20 mg PO BID [facility] Potassium Chloride (Klor Con Er Tab*) 20 meq PO DAILY [facility] Prochlorperazine Edisylate (Compazine Inj*) 5 mg IV Q6H PRN PRN Reason: NAUSEA/VOMITING Spironolactone (Spironolactone (Nf)) 50 mg PO BID [facility] Torsemide (Demadex*) 40 mg PO DAILY [facility] Vital Signs - 8 hr 02/14/18 02/14/18 02/14/18 07:31 07:49 10:00 Temperature 97.4 F Pulse Rate 68 70 Respiratory 20 16 Rate Blood Pressure 94/63 107/56 (mmHg) O2 Sat by Pulse 98 97 Oximetry 02/14/18 02/14/18 11:07 14:50 Temperature 98.2 F Pulse Rate 69 Respiratory 16 20 Rate Blood Pressure 101/52 (mmHg) O2 Sat by Pulse 97 Oximetry Oxygen Devices in Use Now: Nasal Cannula Appearance: 72 yo M in nAD, aAOx3 Eyes: No Scleral Icterus, PERRLA Ears/Nose/Mouth/Throat: NL Teeth, Lips, Gums, Mucous Membranes Moist Neck: NL Appearance and Movements; NL JVP, Trachea Midline Respiratory: Symmetrical Chest Expansion and Respiratory Effort, Clear to Auscultation Cardiovascular: NL Sounds; No Murmurs; No JVD Abdominal: - - large, soft ascites, NT, BS+ Extremities: No Edema, No Clubbing, Cyanosis Skin: No Rash or Ulcers, - - R upper back two lipomas approx 10 cm , soft , nontender Neurological: Alert and Oriented x 3, NL Muscle Strength and Tone Result Diagrams: 02/14/18 14:43 02/14/18 14:43 Additional Lab and Data: Lab Results 02/13/18 02/13/18 02/13/18 Range/Units 17:53 17:53 17:53 WBC 4.2 (3.5-10.8) 10^3/ul RBC 2.13 L (4.00-5.40) 10^6/ul Hgb 4.7 L* (14.0-18.0) g/dl Hct 16 L (42-52) % MCV 76 L (80-94) fL MCH 22 L (27-31) pg MCHC 29 L (31-36) g/dl RDW 20 H (10.5-15) % Plt Count 109 L (150-450) 10^3/ul MPV 9.2 (7.4-10.4) fL Neut % (Auto) 78.4 % Lymph % (Auto) 6.7 % [place] % (Auto) 12.7 % Eos % (Auto) 0.9 % Baso % (Auto) 1.3 % Absolute Neuts (auto) 3.3 (1.5-7.7) 10^3/ul Absolute Lymphs (auto) 0.3 L (1.0-4.8) 10^3/ul Absolute Monos (auto) 0.5 (0-0.8) 10^3/ul Absolute Eos (auto) 0 (0-0.6) 10^3/ul Absolute Basos (auto) 0.1 (0-0.2) 10^3/ul Absolute Nucleated RBC 0 10^3/ul Nucleated RBC % 0.5 INR (Anticoag Therapy) 0.98 (0.77-1.02) APTT 29.7 (26.0-36.3) seconds Blood Type A Negative Antibody Screen Pending Crossmatch See Detail Microbiology and Other Data: Microbiology 02/13/18 16:45 Stool Occult Blood ([facility]ARMEN) - Final Stool Assess/Plan/Problems-Billing Assessment: 72 yo M with h/o liver cirrhosis, HTN, thoracic back pain ( positional) had been overusing ASA and presented with severe ion deficiency anemia - Patient Problems (1) Iron (Fe) deficiency anemia Comment: Acute on chronic due to ASA related upper bleed and gastric erosions noted on EGD today. As d/w Dr. Moyer, cont PPI BID, d/c Protonix gtt cont full liquid diet (2) Cirrhosis, alcoholic Comment: chronic, compensated will restart Torsemide and Aldactone today (3) HTN (hypertension) Comment: low normal BP, cont Toprol XL (4) DVT prophylaxis Comment: SCD's
[2018-02-14] MEDS: Torsemide TAB* 20 MG PO SCH (17:10)
[2018-02-14] MEDS: Omeprazole CAP* 20 MG PO SCH (20:32)
[2018-02-14] MEDS: Spironolactone TAB* 25 MG PO SCH (20:32)
--- NOTE | 2018-02-15 02:45 | PRO ---
DATE OF PROCEDURE: 02/14/18 - ROOM #452 PROCEDURE: EGD. INDICATION: Anemia. REFERRING PHYSICIAN: No one. MEDICATIONS GIVEN: 25 mcg IV fentanyl, 6 mg IV Versed. DESCRIPTION OF PROCEDURE: After the EGD procedure including the risks, benefits , and alternatives, not limited to perforation, surgery, and/or were explained to Mr. Basurto, written consent was then obtained, IV medication was given, and a bite block was placed between the teeth. An Olympus pediatric gastroscope was advanced down the esophagus and into the stomach and distal duodenum. In the esophagus, he did have one varix grade 1 in the distal esophagus. No signs, stigmata or bleeding were seen. The scope was advanced through a widely patent GE junction and into the body of the stomach. Retroflex view was unremarkable. Forward view did reveal multiple erosions consistent with his nonsteroidal use. Biopsy was obtained for H. pylori. The patient was advanced through the widely patent pylorus into the duodenal bulb and into the distal duodenum, both of which were unremarkable. The scope was withdrawn from the patient. He tolerated the procedure well and was returned to his hospital room in stable condition. IMPRESSION: 1. Complete upper endoscopy into the distal duodenum with biopsies. 2. Gastric erosions, status post biopsy likely this is secondary to his NSAIDs. He knows he needs to avoid NSAIDS and use omeprazole. [id number]/[facility] #: [id number] MTDD
[2018-02-15] MEDS: traMADol TAB* 50 MG PO PRN ×2 (04:34→23:28)
[2018-02-15] MEDS: Gabapentin CAP(*) 400 MG PO PRN ×2 (05:36→09:27)
[2018-02-15 06:08] LABS: ABS Basophils 0.1 10^3/ul (0-0.2); ABS Eosinophils 0.1 10^3/ul (0-0.6); ABS Lymphocytes 0.4 10^3/ul (1.0-4.8); ABS Monocytes 0.4 10^3/ul (0-0.8); ABS Neutrophils 2.5 10^3/ul (1.5-7.7); ABS Nucleated RBC 0 10^3/ul; Eosinophil % 2.4 %; Hematocrit 26 % (42-52); Lymphocyte % 11.9 %; Mean Corpuscular HGB Conc 30 g/dl (31-36); Mean Corpuscular Hemoglobin 24 pg (27-31); Mean Corpuscular Volume 79 fL (80-94); Mean Platelet Volume 8.8 fL (7.4-10.4); Nucleated Red Blood Cells % 0; Platelet Count 101 10^3/ul (150-450); Red Blood Count 3.31 10^6/ul (4.00-5.40); Red Cell Distribution Width 20 % (10.5-15); White Blood Count 3.5 10^3/ul (3.5-10.8)
[2018-02-15 06:24] LABS: EGFR Non-African American 62.2 (>60)
--- NOTE | 2018-02-15 08:11 | PN ---
Progress Note - Progress Note Date of Service: 02/15/18 Note: doing well, hungry, no evidence of bleeding, no abd pain VS; 98, 89/66, 97% nad, alert no asterixis distended, +fluid wave, nt/nd hgb 8, 7.8, 5.7 plts 101 BUN/Cr nml chronic UGI bleed......PUD from NSAIDs, no nsaids, oral ppi cirrhosis d/t etoh......ascites.....diuretics, watch renal fxn, no varices to band, no enceph advance diet, watch renal fxn with diuretics, dc in next 24 hrs if continues to improve Chase Moyer MD
[2018-02-15] MEDS: chlordiazePOXIDE CAP* 10 MG PO SCH ×3 (09:28→20:19)
[2018-02-15] MEDS: Magnesium Oxide TAB* 400 MG PO SCH (09:29)
[2018-02-15] MEDS: Potassium Chlor TAB* 10 MEQ TAB.ER PO SCH (09:29)
[2018-02-15] MEDS: Omeprazole CAP* 20 MG PO SCH ×2 (09:30→20:19)
[2018-02-15] MEDS: Torsemide TAB* 20 MG PO SCH (09:32)
[2018-02-15] MEDS: Spironolactone TAB* 25 MG PO SCH ×3 (09:33→20:19)
[2018-02-15] MEDS: Metoprolol Succinate XL TAB* 25 MG PO SCH ×3 (09:33→20:17)
--- NOTE | 2018-02-15 12:38 | PN ---
Subjective Date of Service: 02/15/18 Interval History: no pain, sob, f/c/n/v. Taking 65mg ferrous gluconate at home. appt with Dr. Pablo scheduled from Saturday 02/17. Pre-colonoscopy exam this week. Last 3-4 years ago with 2 polyps removed. Last drink 09/11/[address] [employer] day. Objective Active Medications: Albuterol (Ventolin 2.5 Mg/3 Ml Neb.My*) 2.5 mg INH Q2H PRN PRN Reason: SOB/WHEEZING Last Admin: 02/14/18 05:19 Dose: 2.5 mg Chlordiazepoxide (Librium Cap*) 10 mg PO TID [facility] Last Admin: 02/15/18 09:28 Dose: 10 mg Clobetasol Propionate (Clobetasol 0.05% Oint*) 1 applic TOPICAL BID PRN PRN Reason: ITCHING Ferrous Gluconate (Fergon Tab*) 324 mg PO BID [facility] Gabapentin (Neurontin Cap(*)) 800 mg PO QID [facility] Magnesium Oxide (Magox 400 Tab*) 400 mg PO DAILY [facility] Last Admin: 02/15/18 09:29 Dose: 400 mg Metoprolol Succinate (Toprol Xl Tab*) 25 mg PO BID [facility] Last Admin: 02/15/18 09:33 Dose: Not Given Morphine Sulfate (Morphine Vial*) 1 mg IV Q1H PRN PRN Reason: SEVERE PAIN Nicotine (Nicotine Inhaler*) 10 mg INH Q2H PRN PRN Reason: CRAVING Last Admin: 02/13/18 23:51 Dose: 10 mg Omeprazole (Prilosec Cap*) 20 mg PO BID [facility] Last Admin: 02/15/18 09:30 Dose: 20 mg Potassium Chloride (Klor Con Er Tab*) 20 meq PO DAILY [facility] Last Admin: 02/15/18 09:29 Dose: 20 meq Prochlorperazine Edisylate (Compazine Inj*) 5 mg IV Q6H PRN PRN Reason: NAUSEA/VOMITING Spironolactone (Aldactone Tab*) 50 mg PO BID [facility] Last Admin: 02/15/18 09:33 Dose: Not Given Torsemide (Demadex*) 40 mg PO DAILY [facility] Last Admin: 02/15/18 09:32 Dose: 40 mg Tramadol HCl (Ultram*) 50 mg PO Q12H PRN PRN Reason: PAIN Last Admin: 02/15/18 04:34 Dose: 50 mg Vital Signs - 8 hr 02/15/18 02/15/18 02/15/18 04:34 05:36 07:44 Temperature 98.1 F Pulse Rate 57 Respiratory 20 18 18 Rate Blood Pressure 97/42 (mmHg) O2 Sat by Pulse 93 Oximetry 02/15/18 02/15/18 02/15/18 08:00 09:27 09:28 Temperature Pulse Rate Respiratory 18 16 18 Rate Blood Pressure (mmHg) O2 Sat by Pulse Oximetry 02/15/18 11:15 Temperature 98.2 F Pulse Rate 80 Respiratory 19 Rate Blood Pressure 101/51 (mmHg) O2 Sat by Pulse 95 Oximetry Oxygen Devices in Use Now: None Appearance: NAD, initially asleep but easily arousable. Eyes: No Scleral Icterus, PERRLA Ears/Nose/Mouth/Throat: NL Teeth, Lips, Gums Respiratory: Symmetrical Chest Expansion and Respiratory Effort, Clear to Auscultation Cardiovascular: NL Sounds; No Murmurs; No JVD, RRR Abdominal: - - soft, very distended abdomen. no rebound or guarding. Extremities: - - trace edema b/l Neurological: Alert and Oriented x 3, NL Sensation Nutrition: Taking PO's Result Diagrams: 02/15/18 05:55 02/15/18 05:55 Additional Lab and Data: Laboratory Results - last 24 hr 02/14/18 02/14/18 02/15/18 14:43 14:43 05:55 WBC 3.8 3.5 RBC 3.22 L 3.31 L Hgb 7.8 L 8.0 L Hct 26 L 26 L MCV 79 L 79 L MCH 24 L 24 L MCHC 31 30 L RDW 19 H 20 H Plt Count 103 L 101 L MPV 8.2 8.8 Neut % (Auto) 74.6 72.4 Lymph % (Auto) 11.5 11.9 [place] % (Auto) 9.6 11.9 Eos % (Auto) 3.1 2.4 Baso % (Auto) 1.2 1.4 Absolute Neuts (auto) 2.9 2.5 Absolute Lymphs (auto) 0.4 L 0.4 L Absolute Monos (auto) 0.4 0.4 Absolute Eos (auto) 0.1 0.1 Absolute Basos (auto) 0 0.1 Absolute Nucleated RBC 0 0 Nucleated RBC % 0.3 0 Sodium 138 Potassium 4.1 Chloride 102 Carbon Dioxide 31 Anion Gap 5 BUN 15 Creatinine 1.17 Est GFR ( Amer) 74.6 Est GFR (Non-Af Amer) 61.6 BUN/Creatinine Ratio 12.8 Glucose 94 Calcium 8.6 02/15/18 05:55 WBC RBC Hgb Hct MCV MCH MCHC RDW Plt Count MPV Neut % (Auto) Lymph % (Auto) [place] % (Auto) Eos % (Auto) Baso % (Auto) Absolute Neuts (auto) Absolute Lymphs (auto) Absolute Monos (auto) Absolute Eos (auto) Absolute Basos (auto) Absolute Nucleated RBC Nucleated RBC % Sodium 138 Potassium 3.9 Chloride 102 Carbon Dioxide 31 Anion Gap 5 BUN 14 Creatinine 1.16 Est GFR ( Amer) 75.3 Est GFR (Non-Af Amer) 62.2 BUN/Creatinine Ratio 12.1 Glucose 99 Calcium 8.5 L Microbiology and Other Data: Microbiology 02/14/18 13:45 Gastric Antrum CLOtest - Final 02/13/18 16:45 Stool Stool Occult Blood ([facility]) - Final Assess/Plan/Problems-Billing Assessment: 72 yo M with h/o liver cirrhosis 2/2 EtOH w/ chronic ascites, HTN, COPD, SVT s/ p ablation, remote systolic CHF, thoracic back pain (positional) had been overusing ASA 650mg 4-5x a day) and presented with severe ion deficiency anemia. gastric erosions on EGD. - Patient Problems (1) Iron (Fe) deficiency anemia Current Visit: Yes Status: Acute Code(s): D50.9 - IRON DEFICIENCY ANEMIA, UNSPECIFIED SNOMED Code(s): 99121277 Comment: Acute on chronic due to ASA related upper bleed and gastric erosions noted on EGD today. As d/w Dr. Moyer, cont PPI BID cont full liquid diet monitor for 1 more day per GI. started ferrous gluconate. (2) Cirrhosis, alcoholic Current Visit: No Status: Chronic Priority: Medium Code(s): K70.30 - ALCOHOLIC CIRRHOSIS OF LIVER WITHOUT ASCITES SNOMED Code(s): 153013695 Comment: chronic, compensated continue Torsemide 20mg daily and Aldactone 50mg BID. (3) Polyneuropathy, alcoholic Current Visit: Yes Status: Acute Code(s): G62.1 - ALCOHOLIC POLYNEUROPATHY SNOMED Code(s): 5327102 Comment: make gabapentin 800mg QID james instead of prn. (4) COPD (chronic obstructive pulmonary disease) Current Visit: No Status: Chronic Priority: Medium Code(s): J44.9 - CHRONIC OBSTRUCTIVE PULMONARY DISEASE, UNSPECIFIED SNOMED Code(s): 14366120 Comment: stable, not in acute exacerbation. (5) Cardiomyopathy Current Visit: No Status: Chronic Priority: Medium Code(s): I42.9 - CARDIOMYOPATHY, UNSPECIFIED SNOMED Code(s): 72407540 Comment: - follows with Dr. Jurado. - stable. continue diurectics. - Global hypokinesis on echo 09/12/17, unable to estimate LVEF (previously was EF 35-40% in 2013). Continue metoprolol 25mg po BID, torsemide 20mg bid spironolactone 50mg BID (6) Thrombocytopenia Current Visit: No Status: Chronic Priority: Medium Code(s): D69.6 - THROMBOCYTOPENIA, UNSPECIFIED SNOMED Code(s): 663014635 Comment: - Platelets stable - chronic cirrhosis (7) Tobacco abuse Current Visit: No Status: Chronic Priority: Medium Code(s): Z72.0 - TOBACCO USE SNOMED Code(s): 226583392 Comment: nicotine inhaler. Status and Disposition: medicine inpatient. monitor 1 more day per GI.
[2018-02-15] MEDS: Gabapentin CAP(*) 400 MG PO SCH ×3 (13:25→20:19)
[2018-02-15] MEDS: Ferrous Gluconate TAB* 324 MG TAB PO SCH ×2 (13:25→20:19)
[2018-02-16] MEDS ORDERED: Gabapentin CAP(*) 400 MG PO SCH (06:00)
--- NOTE | 2018-02-16 06:45 | PN ---
Progress Note - Progress Note Date of Service: 02/16/18 Note: no change, doing well, [place] diet, no s/s bleeding VS: 98.0, 102/62, 96, 90% nad, alert, oriented obese, softly distended, +ascites Hgb 8, plts 101, bun 14, cr 1.16 Cirrhosis......continue diuretics for ascites, avoid EtOH, very small varix anemia.....NSAID abuse, PUD, would continue at least q day PPI, repeat CBC in 2- 3 weeks Chase Moyer MD
[2018-02-16] MEDS: Potassium Chlor TAB* 10 MEQ TAB.ER PO SCH (09:35)
[2018-02-16] MEDS: chlordiazePOXIDE CAP* 10 MG PO SCH (09:36)
[2018-02-16] MEDS: Omeprazole CAP* 20 MG PO SCH (09:36)
[2018-02-16] MEDS: Spironolactone TAB* 25 MG PO SCH (09:37)
[2018-02-16] MEDS: Magnesium Oxide TAB* 400 MG PO SCH (09:37)
[2018-02-16 09:56] LABS: ABS Basophils 0.1 10^3/ul (0-0.2); ABS Eosinophils 0.1 10^3/ul (0-0.6); ABS Lymphocytes 0.5 10^3/ul (1.0-4.8); ABS Monocytes 0.4 10^3/ul (0-0.8); ABS Neutrophils 2.5 10^3/ul (1.5-7.7); ABS Nucleated RBC 0 10^3/ul; Eosinophil % 2.1 %; Hematocrit 28 % (42-52); Hemoglobin 8.4 g/dl (14.0-18.0); Lymphocyte % 14.4 %; Mean Corpuscular HGB Conc 30 g/dl (31-36); Mean Corpuscular Hemoglobin 24 pg (27-31); Mean Corpuscular Volume 79 fL (80-94); Mean Platelet Volume 9.2 fL (7.4-10.4); Nucleated Red Blood Cells % 0.1; Platelet Count 113 10^3/ul (150-450); Red Blood Count 3.53 10^6/ul (4.00-5.40); Red Cell Distribution Width 20 % (10.5-15); White Blood Count 3.5 10^3/ul (3.5-10.8)
[2018-02-16] MEDS: Ferrous Gluconate TAB* 324 MG TAB PO SCH (10:13)
[2018-02-16] MEDS: Torsemide TAB* 20 MG PO SCH (10:14)
[2018-02-16] MEDS: Metoprolol Succinate XL TAB* 25 MG PO SCH (12:26)
[2018-02-16 14:54] VITALS: BP 110/46
--- NOTE | 2018-02-17 04:39 | DS ---
DISCHARGE SUMMARY: DATE OF ADMISSION: 02/13/18 DATE OF DISCHARGE: 02/16/18 ADMITTING PROVIDER: Melani Blanco MD ATTENDING PHYSICIAN ON THE DAY OF DISCHARGE: Miky Ya MD PRIMARY CARE PROVIDER: Dr. Pablo. CONSULTING UTILIZATION COORDINATOR: Dr. Moyer. CHIEF COMPLAINT: Severe anemia noticed on outpatient labs. PRINCIPAL DIAGNOSES: Severe anemia in the setting of gastric erosions in the setting of aspirin overmedication; single grade 1 distal esophageal varix; psoriatic arthritis, uncontrolled; cirrhosis. HISTORY OF PRESENT ILLNESS AND HOSPITAL COURSE: Zeyad Basurto is a 72-year-old male with past medical history of cirrhosis with chronic compensated ascites; congestive heart failure; hepatic encephalopathy; obstructive sleep apnea; COPD ; pulmonary hypertension; CAD; psoriatic arthritis; anxiety/depression; proximal SVT, status post ablation; chronic ascites controlled through diuretics ; thrombocytopenia. Please see H&P of Melani Blanco for full details though that was limited given interview noncompliance with Mr. Basurto, who is reportedly sent by his PCP when noted to be on outpatient labs to be anemic. He attested to taking aspirin 650 mg approximately 4 times a day for his between the shoulder blades pain, left hip pain. He developed epigastric pain. He was found to have a hemoglobin of 4.7 in the emergency room and was transfused 4 units of blood in total. He was seen by acid pumper, Dr. Moyer, who performed an EGD on 02/14/18, which demonstrated gastric erosions, thought secondary to excessive NSAID and aspirin use, and he did have 1 distal grade 1 esophageal varix. No stigmata of bleeding was seen. H. pylori biopsy was negative via CLOtest. He was continued on PPI, advised to avoid NSAIDs. His other diuretics were continued. He was found to be severely iron deficient despite the patient's oral supplementation [id number], iron was 15, iron sat was 3, ferritin was 15.2. Increased ferrous gluconate recommended as an outpatient. His hemoglobins for the last 3 days of admission were 7.8, then 8.0, then 8.4; these seemed to have been stable. He was started on tramadol 50 mg q.12 hours p.r.n. for his chronic between the shoulder blades pain and left hip pain. He is recommended to follow up and establish care with Dr. Ortiz for further evaluation for his psoriatic arthritis. He is complaining of left hip pain for 2 years. He denies history of imaging, consideration to have x-ray of the left hip as an outpatient. His stool guaiac was positive. Dr. Moyer recommended CBC repeat within 2 to 3 weeks. DISCHARGE MEDICATIONS: Include: 1. Betamethasone 0.05% ointment topically b.i.d. p.r.n. 2. Librium 10 mg p.o. t.i.d. p.r.n. (Of note, he only takes this seemingly for sleep aid, recommended discussions with Dr. Pablo as an outpatient). 3. Ferrous gluconate 325 mg p.o. b.i.d. (new). 4. Gabapentin 800 mg p.o. q.6 hours. 5. Magnesium oxide 400 mg p.o. daily. 6. Metoprolol succinate 25 mg p.o. b.i.d. 7. Potassium chloride 20 mEq p.o. daily. 8. Spironolactone 50 mg p.o. b.i.d. 9. Torsemide 20 mg p.o. b.i.d. 10. Tramadol 50 mg p.o. q.12 hours p.r.n. (new) written for 14 tabs. 11. Multivitamin 1 tab p.o. daily. 12. Omeprazole 20 mg p.o. b.i.d. (new). FOLLOWUP: Please follow up with Dr. Pablo within 7 days of discharge. Recommend a referral to Dr. Jeffery Ortiz or other fork repairer for treatment and evaluation of his longstanding psoriatic arthritis. Consideration for left hip x-ray and repeat CBC within the next 2 weeks. DISCHARGE DIET: Low sodium, heart healthy, unchanged. TIME SPENT ON DISCHARGE: Forty minutes, more than half the time was spent at bedside evaluating the patient and discussing plan of care. [id number]/[facility] #: [id number] [facility]
== END 2018-02-16 13:30 | disposition home or self-care (01) | DRG 812 ==
LOC: ED 17:12 → MEDTELE 21:12 → OBSVTOIN 02-14 08:40
PROVIDERS: ADMIT Internal Medicine; ATTEND Internal Medicine
PROC: 30233N1 Transfusion of Nonautologous Red Blood Cells into Peripheral Vein, Percutaneous Approach (ICD-10-PCS; principal; 2018-02-12)
PROC: 0DD68ZX Extraction of Stomach, Via Natural or Artificial Opening Endoscopic, Diagnostic (ICD-10-PCS; 2018-02-12)
DX: D50.8 Other iron deficiency anemias (principal); I85.00 Esophageal varices without bleeding; I50.20 Unspecified systolic (congestive) heart failure; I42.9 Cardiomyopathy, unspecified; J44.9 Chronic obstructive pulmonary disease, unspecified; I11.0 Hypertensive heart disease with heart failure; I27.20 Pulmonary hypertension, unspecified; Z99.81 Dependence on supplemental oxygen; D69.6 Thrombocytopenia, unspecified; G62.1 Alcoholic polyneuropathy; L40.50 Arthropathic psoriasis, unspecified; K70.31 Alcoholic cirrhosis of liver with ascites; F10.21 Alcohol dependence, in remission; K72.90 Hepatic failure, unspecified without coma; K25.9 Gastric ulcer, unspecified as acute or chronic, without hemorrhage or perforation; T39.015A Adverse effect of aspirin, initial encounter; X58.XXXA Exposure to other specified factors, initial encounter; G47.33 Obstructive sleep apnea (adult) (pediatric); I25.10 Atherosclerotic heart disease of native coronary artery without angina pectoris; M54.9 Dorsalgia, unspecified; F32.9 Major depressive disorder, single episode, unspecified; F41.9 Anxiety disorder, unspecified; F17.210 Nicotine dependence, cigarettes, uncomplicated; K21.9 Gastro-esophageal reflux disease without esophagitis; Y92.009 Unspecified place in unspecified non-institutional (private) residence as the place of occurrence of the external cause; Z85.828 Personal history of other malignant neoplasm of skin; Z79.82 Long term (current) use of aspirin; Z79.899 Other long term (current) drug therapy; Z82.49 Family history of ischemic heart disease and other diseases of the circulatory system
CPT/HCPCS: 36415; 71045; 80048; 80053; 82270; 82607; 82728; 82746; 83540; 83550; 85014; 85018; 85025; 85610; 85730; 86850; 86900; 86901; 86922; 87077; 93005; 99156; 99284; 99406; A9270-GY; J0696; J1940; J2250; J3010; P9016; P9040